=== PATIENT | female | born 1990 | race Caucasian/White ===

== ENCOUNTER → 2017-06-10 | Outpatient (CLI) | payer OTHER ==
[~2017-06-10] MED LIST: ACHD5005 PO; IBP600T1 PO; PREN-93 PO
--- NOTE | 2017-06-10 11:53 | Diagnostic Imaging Report ---
PROCEDURE: US OB SINGLE FETUS <14 WKS. TECHNIQUE: Multiple real-time grayscale images were obtained over the gravid uterus in various projections. INDICATION: Dating. FINDINGS: There is an intrauterine gestational sac containing a pole. The crown-rump length measurement is 13 mm consistent with 7 weeks 5 days gestation. heart rate was recorded at 170 beats per minute. No perigestational sac hemorrhage is identified. Adnexal evaluation demonstrates a corpus luteal cyst on the left approximately 17 mm in size. Right ovary was not visualized. There is no free fluid. IMPRESSION: Single live IUP 7 weeks 5 days gestational age. The estimated date of confinement sonographically is 01/22/2018. Dictated by: Dictated on workstation # [id number]
== END ==
LOC: RAD 09:51
PROVIDERS: ATTEND Family Medicine
DX: Z34.91 Encounter for supervision of normal pregnancy, unspecified, first trimester (principal); Z3A.01 Less than 8 weeks gestation of pregnancy
CPT/HCPCS: 76801

== ENCOUNTER → 2017-09-02 | Outpatient (CLI) | payer OTHER, MEDICAID ==
--- NOTE | 2017-09-02 13:26 | Diagnostic Imaging Report ---
INDICATION: , second trimester. TECHNIQUE: Multiple real-time grayscale images were obtained over the gravid uterus. COMPARISON: 06/10/2017. FINDINGS: The previous OB ultrasound exam of 06/10/2017 noted a single live intrauterine of approximately 7 weeks 5 days gestation +/-1 week. On this exam, the fetus is again identified. The fetus is cephalic in presentation. heart motion was noted and a rate of 163 BPM was recorded. There were no abnormalities identified. The growth parameters are fairly uniform and have progressed as expected since the prior exam. The placenta is posterior and low lying at approximately 1.7 cm from the cervical os. Amniotic fluid volume is within normal limits. Cervix was visualized and measures 6.1 cm in length (normal 3 cm or greater). Biometrical measurements are as follows: Biparietal 4.69 cm, age 20 weeks 2 days. Head circumference 17.72 cm, age 20 weeks 2 days. Abdominal circumference 15.03 cm, age 20 weeks 2 days. Femur length 3.75 cm, age 22 weeks 0 days. Sonographic estimate age: 20 weeks 5 days. Sonographic estimated date of delivery: 01-15-18. Estimated Weight: 388 gm (+/- 57 gm). LMP percentile: 97%. heart rate: 163 beats per minute. number: 1 of 1. IMPRESSION: 1. There is single live fetus at approximately 19 weeks 5 days gestation +/-1 week. The EDC remains January 22, 2018. 2. There were no abnormalities identified. 3. The growth parameters have progressed as expected since the prior exam. 4. The placenta is low lying but there is no previa. It may prove worthwhile to have a short-term (4-6 week) followup exam for further evaluation of the placenta. Dictated by: Dictated on workstation # [id number]
== END ==
LOC: RAD 09:08
PROVIDERS: ATTEND Family Medicine
DX: Z34.82 Encounter for supervision of other normal pregnancy, second trimester (principal); Z3A.19 19 weeks gestation of pregnancy
CPT/HCPCS: 76805

== ENCOUNTER → 2017-10-18 | Outpatient (CLI) | payer MEDICAID, OTHER ==
--- NOTE | 2017-10-18 14:50 | Diagnostic Imaging Report ---
INDICATION: survey. TECHNIQUE: Multiple real-time grayscale images were obtained over the gravid uterus. COMPARISON: 09/02/2017 FINDINGS: The previous OB ultrasound exam of 09/02/2017 noted a single live fetus approximately 19 weeks 5 days gestation + / - 1 week. On this study, the fetus is again identified. The fetus is cephalic in presentation. heart motion was noted and a rate of 153 bpm was recorded. There were no obvious abnormalities identified. The growth parameters have progressed as expected since the prior exam. The prior exam did note that the placenta was posterior and low-lying. On this exam, the placenta is no longer low-lying. The amniotic fluid volume is within normal limits. The cervix was identified and measures 5.1 cm in length. IMPRESSION: 1. There is a single live fetus approximately 26 weeks 2 days gestation + / - 1.5 weeks. EDC remains 01/22/2018. 2. No abnormalities identified. 3. The growth parameters have progressed as expected since the prior exam. 4. The placenta is posterior and no longer low-lying. Biometrical measurements are as follows: Biparietal 7.08 cm, age 28 weeks 4 days. Head circumference 25.37 cm, age 27 weeks 4 days. Abdominal circumference 23.44 cm, age 27 weeks 6 days. Femur length 4.97 cm, age 26 weeks 6 days. Sonographic estimate age: 27 weeks 5 days. Sonographic estimated date of delivery: 01/12/18. Estimated Weight: 1077 gm (+/- 157 gm). LMP percentile: 85%. heart rate: 153 beats per minute. number: 1 of 1. Dictated by: Dictated on workstation # [id number]
== END ==
LOC: RAD 11:34
PROVIDERS: ATTEND Plastic Surgery
DX: Z36.89 Encounter for other specified antenatal screening (principal); Z3A.26 26 weeks gestation of pregnancy
CPT/HCPCS: 76816

== ENCOUNTER 2017-12-04 15:20 | Outpatient (CLI) | payer MEDICAID ==
[~2017-12-04] VITALS: Ht 152.4 cm; Wt 78.0 kg
[2017-12-04 15:42] VITALS: BP 111/62
[2017-12-04 16:20] VITALS: BP 101/57
[2017-12-04 17:08] LABS: BASOPHILS % (AUTO) 0 % (0-10); EOSINOPHILS # (AUTO) 0.1 10^3/uL (0.0-0.3); EOSINOPHILS % (AUTO) 1 % (0-10); HEMATOCRIT 31 % (35-52); HEMOGLOBIN 10.1 G/DL (11.5-16.0); LYMPHOCYTES # (AUTO) 1.5 X 10^3 (1.0-4.0); LYMPHOCYTES % (AUTO) 19 % (12-44); MEAN CORPUSCULAR HEMOGLOBIN 27 PG (25-34); MEAN CORPUSCULAR HGB CONC 33 G/DL (32-36); MEAN CORPUSCULAR VOLUME 81 FL (80-99); MEAN PLATELET VOLUME 12.4 FL (7.4-10.4); MONOCYTES # (AUTO) 0.6 X 10^3 (0.0-1.0); MONOCYTES % (AUTO) 8 % (0-12); NEUTROPHILS # (AUTO) 5.6 X 10^3 (1.8-7.8); NEUTROPHILS % (AUTO) 72 % (42-75); PLATELET COUNT 179 10^3/uL (130-400); RED BLOOD COUNT 3.79 10^6/uL (4.35-5.85); RED CELL DISTRIBUTION WIDTH 14.7 % (10.0-14.5); WHITE BLOOD COUNT 7.8 10^3/uL (4.3-11.0)
[2017-12-04 17:27] LABS: ALANINE AMINOTRANSFERASE 15 U/L (0-55); ALKALINE PHOSPHATASE 155 U/L (40-136); BILIRUBIN,TOTAL 0.3 MG/DL (0.1-1.0); BUN/CREATININE RATIO 12; CALCIUM 8.5 MG/DL (8.5-10.1); CARBON DIOXIDE 18 MMOL/L (21-32); CHLORIDE 110 MMOL/L (98-107); CREATININE SERUM 0.58 MG/DL (0.60-1.30); GFR ESTIMATED > 60; GLUCOSE 87 MG/DL (70-105); POTASSIUM 3.8 MMOL/L (3.6-5.0); SODIUM 139 MMOL/L (135-145); TOTAL PROTEIN 5.7 GM/DL (6.4-8.2)
[2017-12-04] MEDS ORDERED: OMEP20CA12 PO (17:49)
[2017-12-04 18:05] VITALS: BP 101/57
--- NOTE | 2017-12-06 14:57 | Physician Query-Final Dx ---
CATHI DYKES 12/06/17 1457: Clinic Account Progress/Dx Physician Query: Please give diagnosis Please provide diagnosis and weeks of gestation. Date of Service Dec 04, 2017 at 15:20 SHRADDHA OQUENDO 12/28/17 0932: PAOLA CARRERO DO 12/28/17 0939: Clinic Account Progress/Dx DIAGNOSIS: Diagnosis 33 week GA RUQ abdominal pain - normal lab CATHI DYKES Dec 06, 2017 14:57 SHRADDHA OQUENDO Dec 28, 2017 09:32 PAOLA CARRERO DO Dec 28, 2017 09:39
== END 2017-12-04 18:05 | disposition home or self-care (01) ==
LOC: LDRP 15:20 → WSo 15:20
PROVIDERS: ATTEND Family Medicine
DX: R10.11 Right upper quadrant pain (principal); Z3A.33 33 weeks gestation of pregnancy
CPT/HCPCS: 36415; 80053; 85025; 99213

== ENCOUNTER 2018-01-09 18:32 | Outpatient (CLI) | payer MEDICAID ==
[~2018-01-09] VITALS: Ht 152.4 cm; Wt 81.2 kg
[2018-01-09] VITALS (8 sets, daily range): BP systolic 113–127; BP diastolic 63–73
[~2018-01-09 18:32] MED LIST changes: +OMEP20CA12 PO
[2018-01-09 19:48] LABS: BILIRUBIN,URINE NEGATIVE (NEGATIVE); CLARITY,URINE CLEAR; COLOR,URINE YELLOW; GLUCOSE, URINE (UA) NEGATIVE (NEGATIVE); KETONES,URINE NEGATIVE (NEGATIVE); LEUKOCYTE ESTERASE ,URINE 1+ (NEGATIVE); NITRITE,URINE NEGATIVE (NEGATIVE); PH,URINE 7 (5-9); PROTEIN,URINE NEGATIVE (NEGATIVE); UROBILINOGEN,URINE NORMAL (NORMAL)
[2018-01-09 19:58] LABS: BACTERIA,URINE NEGATIVE /HPF; WBC,URINE RARE /HPF
[2018-01-09] MEDS ORDERED: LACTATED RINGERS 1,000 ML IV ONE ×2 (20:12→20:15)
[2018-01-09] MEDS ORDERED: D5 LR IV SOLUTION 1,000 ML IV ONE (20:15)
[2018-01-09 20:50] LABS: BASOPHILS % (AUTO) 0 % (0-10); EOSINOPHILS # (AUTO) 0.1 10^3/uL (0.0-0.3); EOSINOPHILS % (AUTO) 1 % (0-10); HEMATOCRIT 32 % (35-52); HEMOGLOBIN 9.8 G/DL (11.5-16.0); LYMPHOCYTES # (AUTO) 1.6 X 10^3 (1.0-4.0); LYMPHOCYTES % (AUTO) 22 % (12-44); MEAN CORPUSCULAR HEMOGLOBIN 24 PG (25-34); MEAN CORPUSCULAR HGB CONC 31 G/DL (32-36); MEAN CORPUSCULAR VOLUME 77 FL (80-99); MONOCYTES # (AUTO) 0.5 X 10^3 (0.0-1.0); MONOCYTES % (AUTO) 7 % (0-12); NEUTROPHILS # (AUTO) 5.3 X 10^3 (1.8-7.8); NEUTROPHILS % (AUTO) 71 % (42-75); PLATELET COUNT 186 10^3/uL (130-400); RED BLOOD COUNT 4.09 10^6/uL (4.35-5.85); RED CELL DISTRIBUTION WIDTH 16.5 % (10.0-14.5); WHITE BLOOD COUNT 7.5 10^3/uL (4.3-11.0)
[2018-01-09 21:09] LABS: ALANINE AMINOTRANSFERASE 18 U/L (0-55); ALBUMIN 3.2 GM/DL (3.2-4.5); ALKALINE PHOSPHATASE 216 U/L (40-136); BILIRUBIN,TOTAL 0.4 MG/DL (0.1-1.0); BUN/CREATININE RATIO 13; CALCIUM 9.1 MG/DL (8.5-10.1); CARBON DIOXIDE 20 MMOL/L (21-32); CHLORIDE 106 MMOL/L (98-107); GFR ESTIMATED > 60; GLUCOSE 132 MG/DL (70-105); POTASSIUM 3.7 MMOL/L (3.6-5.0); SODIUM 136 MMOL/L (135-145); TOTAL PROTEIN 6.6 GM/DL (6.4-8.2)
== END 2018-01-09 22:53 | disposition home or self-care (01) ==
LOC: LDRP 18:32 → WSo 18:32
PROVIDERS: ATTEND Family Medicine
DX: Z03.71 Encounter for suspected problem with amniotic cavity and membrane ruled out (principal)
CPT/HCPCS: 36415; 80053; 81000; 85025; 96360; 96361; 99214

== ENCOUNTER 2018-01-16 05:43 | Inpatient (IN) | payer MEDICAID ==
[2018-01-16] VITALS (51 sets, daily range): BP systolic 98–139; BP diastolic 53–84
[~2018-01-16] VITALS: Ht 152.4 cm; Wt 82.1 kg
--- OUTSIDE RECORDS SUMMARY | 2018-01-16 05:48 | XMS REPORT ---
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 Name Role Phone IGNACIOMICHAELABRIL MARY Unavailable PROBLEMS Type Condition ICD9-CM Code OIN36-EL Code Onset Dates Condition Status SNOMED Code Problem Encounter for supervision of other normal , second trimester Z34.82 Active 49466916 Problem Obesity complicating , second trimester O99.212 Active 290706852118 Problem Radiation exposure affecting in second trimester O09.892 Active 519233475 Problem Encounter for supervision of other normal , third trimester Z34.83 Active 48062209 Problem Obesity complicating in third trimester O99.213 Active 626153307863 Problem Bilateral carpal tunnel syndrome G56.03 Active [id number] Problem Interstitial cystitis (chronic) with hematuria N30.11 Active 041055096 Problem Radiation exposure complicating in third trimester O09.893 Active 827768536 Problem Uterine size-date discrepancy in third trimester O26.843 Active 378821963 Problem Pain in left shoulder M25.512 Active 88371719 Problem Pain in right shoulder M25.511 Active 84834791 Problem Low lying placenta NOS or without hemorrhage, second trimester O44.42 Active 229163757 Problem Chronic GERD K21.9 Active 732409638 Problem PCOS (polycystic ovarian syndrome) E28.2 Active 67578438 Problem Other chronic pain G89.29 Active 06734968 Problem Family history of other congenital malformations, deformations and chromosomal abnormalities Z82.79 Active 001525173 Problem Obesity (BMI 30.0-34.9) E66.9 Active 859796253071256 Problem Cardiac murmur, unspecified R01.1 Active 41769766 ALLERGIES No Known Allergies ENCOUNTERS Encounter Location Date Diagnosis [address] [id number] [id number] Dec[facility] [employer] [facility] [address] [id number] [place] [id number] Dec, Encounter for supervision of other normal , third trimester Z34.83 ; Obesity complicating in third trimester O99.213 ; Uterine size-date discrepancy in third trimester O26.843 ; Radiation exposure complicating in third trimester O09.893 ; Bilateral carpal tunnel syndrome G56.03 and Encounter for screening for Streptococcus B Z36.85 [facility] [employer] [facility] [address] [id number][place] [id number] Dec, Encounter for supervision of other normal , third trimester Z34.83 ; Obesity complicating in third trimester O99.213 ; Radiation exposure complicating in third trimester O09.893 and Uterine size-date discrepancy in third trimester O26.[address] [id number] [place] [address] Nov, Encounter for supervision of other normal , third trimester Z34.83 ; Obesity complicating in third trimester O99.213 ; Radiation exposure complicating in third trimester O09.893 ; Uterine size-date discrepancy in third trimester O26.843 and Bilateral carpal tunnel syndrome G56.[address] [id number] [place] [address] Nov, Encounter for supervision of other normal , third trimester Z34.83 ; Obesity complicating in third trimester O99.213 ; Radiation exposure complicating in third trimester O09.893 ; Uterine size-date discrepancy in third trimester O26.843 ; Other chronic pain G89.29 and Bilateral carpal tunnel syndrome G56.03 [facility] [employer] [facility] [address] [id number][place] [id number] Nov, Encounter for supervision of other normal , third trimester Z34.83 ; Obesity complicating in third trimester O99.213 ; Bilateral carpal tunnel syndrome G56.03 ; Uterine size-date discrepancy in third trimester O26.843 ; Radiation exposure complicating in third trimester O09.893 ; Encounter for immunization Z23 and Other chronic pain G89.29 [facility] [address] [facility] [id number] [place] [id number] Oct, Encounter for supervision of other normal , second trimester Z34.82 ; Radiation exposure affecting in second trimester O09.892 ; Obesity complicating , second trimester O99.212 ; Cardiac murmur, unspecified R01.1 ; Interstitial cystitis (chronic) with hematuria N30.11 ; Chronic GERD K21.9 ; Bilateral carpal tunnel syndrome G56.03 and Uterine size- date discrepancy in third trimester O26.843 [facility] [address] [facility] [id number] [place] [id number] Oct, Chronic GERD K21.9 [facility] [address] [id number][place] [id number] Oct, Encounter for supervision of other normal , second trimester Z34.82 [facility] [address] [facility] [id number] [place] [address] Oct, Low lying placenta NOS or without hemorrhage, second trimester O44.42 [facility] [address] [id number], [place] [id number] Sep, Encounter for supervision of other normal , second trimester Z34.82 ; Radiation exposure affecting in second trimester O09.892 ; Low lying placenta NOS or without hemorrhage, second trimester O44.42 ; Cellulitis of left upper extremity L03.114 and Cellulitis of left finger L03.012 [facility] [address] [id number][place] [address] Sep, Encounter for supervision of other normal , second trimester Z34.82 ; Interstitial cystitis (chronic) with hematuria N30.11 ; Obesity complicating , second trimester O99.212 ; Radiation exposure affecting in second trimester O09.892 and Low lying placenta NOS or without hemorrhage, second trimester O44.42 [facility] [address] [id number] [place] [address] Sep, Dysuria R30.0 [facility] [address] [id number], [place] [id number] Sep, Dysuria R30.0 and Other specified related conditions, second trimester O26.892 [facility] [address] [id number], [place] [id number] August, [facility] [employer] [facility] [address] [id number][place] [id number] August, Encounter for supervision of other normal , second trimester Z34.82 ; Obesity complicating , second trimester O99.212 ; Radiation exposure affecting in second trimester O09.892 ; Chronic GERD K21.9 ; Family history of other congenital malformations, deformations and chromosomal abnormalities Z82.79 and Cardiac murmur, unspecified R01.1 [facility] [employer] [place] [address] [id number], [place] [address] Jul, Encounter for supervision of other normal , first trimester Z34.81 ; Obesity complicating , first trimester O99.211 and Radiation exposure affecting in first trimester O09.891 [facility] [employer] [place] [address] [id number], [place] [id number] Jul, Urinary tract infection N39.0 and UTI (urinary tract infection) in in first trimester O23.41 [facility] [employer] [place] [address] [id number], [place] [id number] Jun, Encounter for supervision of other normal , first trimester Z34.81 [facility] [employer] [place] [address] [id number], [place] [address] Jun, Encounter for supervision of other normal , first trimester Z34.81 ; Radiation exposure affecting in first trimester O09.891 ; Family history of other congenital malformations, deformations and chromosomal abnormalities Z82.79 ; Cardiac murmur, unspecified R01.1 and Obesity complicating in first trimester O99.211 [facility] [employer] [id number], [place] [id number] May, Positive test Z32.01 [facility] [employer] Card [id number], [place] [id number] May, Less than 8 weeks gestation of Z3A.01 [facility] [address] [place] [address] AVE [id number], [place] [id number] May, [facility] [address] [id number], [place] [id number] May, PCOS (polycystic ovarian syndrome) E28.2 [facility] [address]ERNST[address] [id number], [place] [id number] May, PCOS (polycystic ovarian syndrome) E28.2 [facility] [address] [id number], [place] [address] May, PCOS (polycystic ovarian syndrome) E28.2 [facility] [address] [id number], [place] [id number] Apr, [facility] [address] [place] [address] AV [id number], [place] [id number] Apr, [facility] [address] [place] [address] AV [id number], [place] [id number] Apr, Obesity (BMI 30.0-34.9) E66.9 ; Cardiac murmur, previously undiagnosed R01.1 ; Chronic GERD K21.9 ; Other chronic pain G89.29 ; Pain in left shoulder M25.512 ; Pain in right shoulder M25.511 ; History of abnormal cervical Pap smear Z87.898 and Encounter to establish care Z76.89 [facility] [address] [id number], [place] [id number] Apr, Encounter for Nexplanon removal Z30.[address] [id number], [place] [address] Feb, Visit for TB skin test Z11.1 and Encounter for immunization Z23 [facility] [address] [id number] [address] Oct, Nexplanon insertion V25.5 [facility] [address] [place] [address] Oct, General counseling and advice for contraceptive management V25.09 [facility] [address] [facility] [id number], [place] [address] 16 Sep, 2014 Routine follow-up V24.2 [facility] [address] [facility] [id number], [place] [address] 28 Jul, 2014 Supervision of other normal V22.1 [facility] [address] [facility] [id number], [place] [address] 14 Jul, 2014 [facility] [address] [facility] [id number], [place] [address] 13 Jul, 2014 [facility] [address] [facility] [id number], [place] [address] 23 Jun, 2014 [facility] [address] [id number], [place] [address] Jun, [facility] [address] [facility] [id number], [place] [address] Jun, [facility] [address] [facility] [id number], [place] [address] Jun, [facility] [address] [id number], [place] [address] 18 May, 2014 [facility] [address]00565100[place], [place] [address] 18 May, 2014 [facility] [address] [id number], [place] [address] May, [facility] [address] [facility] [id number], [place] [address]37[address] May, [facility] [address] [facility] [id number], [place] [address]783[address] May, [facility] [address] [id number], [place] [address] May, [facility] [address] [place] [address] Apr, [facility] [place] [facility] [address] [id number] [place] [address] Apr, [facility] [place] [facility] [address] [id number] [place] [address] Apr, [facility] [place] [facility] [address] [id number] [place] [address] Apr, [facility] [place] [facility] [address] [id number] [place] [address] Mar, [facility] [place] [facility] [address] [id number] [place] [address] Mar, [facility] [place] [facility] [address] [id number] [place] [address] Mar, [facility] [place] [facility] [address] [id number] [place] [address] Mar, [facility] [place] [facility] [address] [id number] [place] [address] Mar, [facility] [place] [facility] [address] [id number] [place] [address] Mar, [facility] [place] [facility] [address] [facility] [id number] [place] [address] Mar, [facility] [place] [facility] [address] [id number] [place] [address] Mar, [facility] [place] [facility] [address] [id number] [place] [address] Mar, [facility] [place] [facility] [address] [id number] [place] [address] Mar, [facility] [place] [facility] [address] [id number] [place] [address] Jan, [facility] [place] [facility] [address] [id number] [place] [address] Jan, [facility] [place] [facility] [address] [id number] [place] [address] 07 Jan, 2013 [facility] [place] [facility] [address] [id number] [place] [address] Jan, 2013 [facility] [place] [facility] [address] [id number] [place] [address]- [address] Jan, 2013 [facility] [place] [facility] [address] [id number] [place] [address] Jan, 2013 [facility] [place] [facility] [address] [id number] [place] [address] 05 Jan, 2014 [facility] [place] [facility] [address] [id number] [place] [address] Jan, [facility] [place] [facility] [address] [id number] [place] [address] Jan, [facility] [place] [facility] [address] [id number] [place] [address]- [address] Jan, [facility] [place] [facility] [address] [id number] [place] [address]- [address] 23 Dec, 2013 [facility] [place] [facility] [address] [id number] [place] [address]- [address] 23 Dec, 2013 [facility] [place] [facility] [address] [id number] [place] [address]- [address] 16 Dec, 2013 [facility] [place] [facility] [address] [id number] [place] [address]- [address]233 16 Sep, 2013 [facility] [place] [facility] [address] [id number] [place] [address]- [address] 12 Dec, 2013 [facility] [place] [facility] [address] [id number] [place] [address]- [address] 12 Dec, 2013 [facility] [place] [facility] [address] [id number] [place] [address] 10 Dec, 2013 [facility] [place] [facility] [address] [id number], [place] [address] Dec, [facility] [address] [facility] [id number], [place] [address] Dec, 2013 [facility] [address] [facility] [id number], [place] [address] Dec, [facility] [address] [facility] [id number], [place] [address] Dec, 2013 [facility] [address] [facility] [id number], [place] [address] Dec, 2013 [facility] [address] [facility] [id number], [place] [address] Dec, [facility] [address] [facility] [id number], [place] [address] Dec, [facility] [address]65100[place], [place] [address] Dec, [facility] [address]00565100[place], [place] [address] Nov, [facility] [address] [id number], [place] [address] Nov, IMMUNIZATIONS No Known Immunizations SOCIAL HISTORY Never Assessed REASON FOR VISIT OB f/u w [facility] PLAN OF CARE Activity Details Follow Up 2 Weeks Reason: Pending Test CULTURE, URINE VITAL SIGNS Height 60 in 2017-11-24 Weight 171.2 lbs 2017-11-24 Heart Rate 84 bpm 2017-11-24 Respiratory Rate 18 2017-11-24 BMI 33.435 kg/m2 2017-11-24 Blood pressure systolic 110 mmHg 2017-11-24 Blood pressure diastolic 70 mmHg 2017-11-24 MEDICATIONS Medication Instructions Dosage Frequency Start Date End Date Duration Status Wrist Splint/Cock-Up/Right Sm - as directed Oct, 90 days Active Wrist Splint/Cock-Up/Left Sm - as directed Oct, 90 days Active Vitamin 27-0.8 MG Orally Once a day 1 tablet 24h May, 90 days Active Omeprazole 20 mg Orally Once a day 1 capsule 24h Apr, 30 day(s ) Active RESULTS Name Result Date Reference Range UA LONG DIP (IN HOUSE) 2017-11-24 Lot # [id number] Exp date 03/2018 Clarity clear Color yellow Odor none GLU neg KULWANT neg KET neg SG 1.020 BLO neg pH 7.0 Protein 1+ URO 1.0 NIT neg TIMBO 3+ Lot # Exp date PROCEDURES Procedure Date Ordered Result Body Site URINALYSIS, AUTO, W/O SCOPE Nov 24, 2017 URINE CULTURE/COLONY COUNT Nov 24, 2017 OB US, LIMITED, FETUS(S) Nov 24, 2017 INSTRUCTIONS MEDICATIONS ADMINISTERED No Known Medications MEDICAL (GENERAL) HISTORY Type Description Date Medical History 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 Treated and Released 2017
--- OUTSIDE RECORDS SUMMARY | 2018-01-16 05:48 | XMS REPORT ---
Author Author MARY CHAVEZ Organization [facility] Address [address] [place] [address] Care Team Providers Care Fisher Eel Name Role Phone MARY CHAVEZ Unavailable PROBLEMS Type Condition ICD9-CM Code GYD15-XV Code Onset Dates Condition Status SNOMED Code Problem Encounter for supervision of other normal , second trimester Z34.82 Active 68223555 Problem Obesity complicating , second trimester O99.212 Active 107253988456 Problem Radiation exposure affecting in second trimester O09.892 Active 712313415 Problem Encounter for supervision of other normal , third trimester Z34.83 Active 94603003 Problem Obesity complicating in third trimester O99.213 Active 531452709325 Problem Bilateral carpal tunnel syndrome G56.03 Active [id number] Problem Interstitial cystitis (chronic) with hematuria N30.11 Active 293752377 Problem Radiation exposure complicating in third trimester O09.893 Active 191698308 Problem Uterine size-date discrepancy in third trimester O26.843 Active 665699949 Problem Pain in left shoulder M25.512 Active 26482032 Problem Pain in right shoulder M25.511 Active 72156050 Problem Low lying placenta NOS or without hemorrhage, second trimester O44.42 Active 788495100 Problem Chronic GERD K21.9 Active 406396564 Problem PCOS (polycystic ovarian syndrome) E28.2 Active 32718335 Problem Other chronic pain G89.29 Active 16948843 Problem Family history of other congenital malformations, deformations and chromosomal abnormalities Z82.79 Active 122901500 Problem Obesity (BMI 30.0-34.9) E66.9 Active 891005866387662 Problem Cardiac murmur, unspecified R01.1 Active 90805481 ALLERGIES No Information ENCOUNTERS Encounter Location Date Diagnosis [facility] [address] [facility] [id number] [address] Jan, Third trimester Z34.93 ; 38 weeks gestation of Z3A.38 and tachycardia before the onset of labor P03.810 [facility] [address] [facility] [id number] [place] [address] Dec, Encounter for immunization Z23 [facility] [address] [id number] [place] [id number] Dec, Encounter for supervision of other normal , third trimester Z34.83 ; Obesity complicating in third trimester O99.213 ; Radiation exposure complicating in third trimester O09.893 and Uterine size-date discrepancy in third trimester O26.843 [facility] [address] [id number] [place] [address] Dec, Encounter for supervision of other normal , third trimester Z34.83 ; Obesity complicating in third trimester O99.213 ; Uterine size-date discrepancy in third trimester O26.843 ; Radiation exposure complicating in third trimester O09.893 ; Bilateral carpal tunnel syndrome G56.03 and Encounter for screening for Streptococcus B Z36.85 [facility] [address] [id number] [place] [address] Dec, Encounter for supervision of other normal , third trimester Z34.83 ; Obesity complicating in third trimester O99.213 ; Radiation exposure complicating in third trimester O09.893 and Uterine size-date discrepancy in third trimester O26.843 [facility] [address] [facility] [id number][place] [id number] Nov, Encounter for supervision of other normal , third trimester Z34.83 ; Obesity complicating in third trimester O99.213 ; Radiation exposure complicating in third trimester O09.893 ; Uterine size-date discrepancy in third trimester O26.843 and Bilateral carpal tunnel syndrome G56.03 [facility] [address] [facility] [id number] [place] [id number] Nov, Encounter for supervision of other normal , third trimester Z34.83 ; Obesity complicating in third trimester O99.213 ; Radiation exposure complicating in third trimester O09.893 ; Uterine size-date discrepancy in third trimester O26.843 ; Other chronic pain G89.29 and Bilateral carpal tunnel syndrome G56.[address] [id number] [place] [id number] Nov, Encounter for supervision of other normal , third trimester Z34.83 ; Obesity complicating in third trimester O99.213 ; Bilateral carpal tunnel syndrome G56.03 ; Uterine size-date discrepancy in third trimester O26.843 ; Radiation exposure complicating in third trimester O09.893 ; Encounter for immunization Z23 and Other chronic pain G89.[address] [id number][place] [id number] Oct, Encounter for supervision of other normal , second trimester Z34.82 ; Radiation exposure affecting in second trimester O09.892 ; Obesity complicating , second trimester O99.212 ; Cardiac murmur, unspecified R01.1 ; Interstitial cystitis (chronic) with hematuria N30.11 ; Chronic GERD K21.9 ; Bilateral carpal tunnel syndrome G56.03 and Uterine size- date discrepancy in third trimester O26.[address] [id number][place] [id number] Oct, Chronic GERD K21.9 [facility] [address] [id number] [place] [address] Oct, Encounter for supervision of other normal , second trimester Z34.[address] [id number], [place] [id number] Oct, Low lying placenta NOS or without hemorrhage, second trimester O44.[address] [id number] [place] [address] Sep, Encounter for supervision of other normal , second trimester Z34.82 ; Radiation exposure affecting in second trimester O09.892 ; Low lying placenta NOS or without hemorrhage, second trimester O44.42 ; Cellulitis of left upper extremity L03.114 and Cellulitis of left finger L03.[address] [id number] [place] [address] Sep, Encounter for supervision of other normal , second trimester Z34.82 ; Interstitial cystitis (chronic) with hematuria N30.11 ; Obesity complicating , second trimester O99.212 ; Radiation exposure affecting in second trimester O09.892 and Low lying placenta NOS or without hemorrhage, second trimester O44.42 [facility] [address] [id number] [place] [address] Sep, Dysuria R30.0 [facility] [address] [id number] [place] [address] Sep, Dysuria R30.0 and Other specified related conditions, second trimester O26.892 [facility] [address] [id number] CITY[place] [address] August, [facility] [address] [id number] [place] [address] August, Encounter for supervision of other normal , second trimester Z34.82 ; Obesity complicating , second trimester O99.212 ; Radiation exposure affecting in second trimester O09.892 ; Chronic GERD K21.9 ; Family history of other congenital malformations, deformations and chromosomal abnormalities Z82.79 and Cardiac murmur, unspecified R01.1 [facility] [address] [id number] [place] [address] Jul, Encounter for supervision of other normal , first trimester Z34.81 ; Obesity complicating , first trimester O99.211 and Radiation exposure affecting in first trimester O09.891 [facility] [address] [id number] [place] [address] Jul, Urinary tract infection N39.0 and UTI (urinary tract infection) in in first trimester O23.41 [facility] [address] [id number] [place] [address] Jun, Encounter for supervision of other normal , first trimester Z34.81 [facility] [address] [id number] [place] [id number] 12 Jun, 2017 Encounter for supervision of other normal , first trimester Z34.81 ; Radiation exposure affecting in first trimester O09.891 ; Family history of other congenital malformations, deformations and chromosomal abnormalities Z82.79 ; Cardiac murmur, unspecified R01.1 and Obesity complicating in first trimester O99.211 [facility] [place] [address] [place] [id number] [place] [id number] 12 May, 2017 Positive test Z32.01 [facility] [place] [address] [place] [id number] [place] [id number] 12 May, 2017 Less than 8 weeks gestation of Z3A.01 [facility] [address] [place] [address] [place] [id number] [place], [place] [id number] 12 May, 2017 [facility] [address] [place] [id number] [id number] May, PCOS (polycystic ovarian syndrome) E28.2 [facility] [address] [place] [address] [id number] [place], [place] [id number] May, PCOS (polycystic ovarian syndrome) E28.2 [facility] [address] [place] [address] [id number] CITY, [place] [id number] May, PCOS (polycystic ovarian syndrome) E28.2 [facility] [address] [place] [address] [id number] [place], [place] [address] Apr, [facility] [address] [place] [address] AV [id number] [place] [id number] Apr, [facility] [address] [place] [address] [place] [id number] [place], [place] [id number] Apr, Obesity (BMI 30.0-34.9) E66.9 ; Cardiac murmur, previously undiagnosed R01.1 ; Chronic GERD K21.9 ; Other chronic pain G89.29 ; Pain in left shoulder M25.512 ; Pain in right shoulder M25.511 ; History of abnormal cervical Pap smear Z87.898 and Encounter to establish care Z76.89 [facility] [address] [id number] CITY[place] [id number] Apr, Encounter for Nexplanon removal Z30.46 [facility] [address] [id number] [place] [address] Feb, Visit for TB skin test Z11.1 and Encounter for immunization Z23 [facility] [id number] [place] [address] 30 Oct, 2014 Nexplanon insertion V25.5 [facility] [address] [place] [address] Oct, General counseling and advice for contraceptive management V25.09 [facility] [id number] [place] [address] Sep, Routine follow-up V24.2 [facility] [id number] [place] [address] Jul, Supervision of other normal V22.1 [facility] [address] [place] [address] Jul, [facility] [id number] [place] [address] Jul, [facility] [address] [place] [address] Jun, [facility] [id number] [place] [address] Jun, [facility] [address] [place] [address]- [address] Jun, [facility] [id number] [place] [address] Jun, [facility] [address] [place] [address]- [address] 18 May, 2014 [facility] [id number] [place] [address] May, 2014 [facility] [place] [facility] [address] [id number] [place] [address] May, [facility] [place] [facility] [address] [id number] [place] [address] May, [facility] [place] [facility] [address] [id number] [place] [address] May, [facility] [place] [facility] [address] [id number] [place] [address] May, [facility] [place] [facility] [address] [id number] [place] [address] Apr, [facility] [place] [facility] [address] [id number] [place] [address] Apr, [facility] [place] [facility] [address] [facility] [id number] [place] [address] Apr, [facility] [place] [facility] [address] [id number] [place] [address] Apr, [facility] [place] [facility] [address] [id number] [place] [address] Mar, [facility] [place] [facility] [address] [facility] [id number] [place] [address] 30 Mar, 2014 [facility] [place] [facility] [address] [id number] [place] [address] Mar, [facility] [place] [facility] [address] [id number] [place] [address] Mar, [facility] [place] [facility] [address] [id number] [place] [address] Mar, [facility] [place] [facility] [address] [facility] [id number] [place] [address] Mar, [facility] [place] [facility] [address] [facility] [id number] [place] [address] Mar, [facility] [place] [facility] [address] [id number] [place] [address]47 05 Mar, 2013 [facility] [place] [facility] [address] [id number] [place] [address] Mar, [facility] [place] [facility] [address] [id number] [place] [address] Mar, [facility] [place] [facility] [address] [id number] [place] [address] Jan, [facility] [place] [facility] [address] [id number] [place] [address] Jan, [facility] [place] [facility] [address] [id number] [place] [address] Jan, [facility] [place] [facility] [address] [id number] [place] [address] Jan, 2013 [facility] [place] [facility] [address] [id number] [place] [address] Jan, [facility] [place] [facility] [address] [id number] [place] [address] Jan, [facility] [place] [facility] [address] [id number] [place] [address] 138[address] Jan, [facility] [place] [facility] [address] [id number] [place] [address]- 5258 Jan, [facility] [place] [facility] [address] [id number] [place] [address]- 77[address] Jan, [facility] [place] [facility] [address] [id number] [place] [address]- [address] Jan, [facility] [place] [facility] [address] [id number] [place] [address]- [address] 23 Dec, 2013 [facility] [place] [facility] [address] [id number] [place] [address]- [address] 23 Dec, 2013 [facility] [place] [facility] [address] [id number] [place] [id number] [address] 16 Dec, 2013 [facility] [address] [facility] [id number], [place] [address] 16 Dec, 2013 [facility] [address] [facility] [id number], [place] [address] Dec, 2013 [facility] [address] [facility] [id number], [place] [address] 12 Dec, 2013 [facility] [address] [facility] [id number], [place] [address] Dec, 2013 [facility] [address] [facility] [id number], [place] [address] 10 Dec, 2013 [facility] [address] [facility] [id number], [place] [address] Dec, 2013 [facility] [address]005[place], [place] [address] Dec, 2013 [facility] [address]00565100[place], [place] [address] 08 Dec, 2013 [facility] [address] [facility] [id number], [place] [address] Dec, 2013 [facility] [address]00565100[place], [place] [address] Dec, 2013 [facility] [address]00565100[place], [place] [address] Dec, [facility] [address] [id number], [place] [address] Dec, [facility] [address] [id number], [place] [address] Nov, [facility] [address]00565100[place], [place] [address] Nov, IMMUNIZATIONS No Known Immunizations SOCIAL HISTORY Never Assessed REASON FOR VISIT ob visit PLAN OF CARE Activity Details Follow Up 1 Week Reason: Pending Test UA OB DIP (IN HOUSE) VITAL SIGNS Height 60 in 2018-01-02 Weight 177.4 lbs 2018-01-02 Temperature 97.9 degrees Fahrenheit 2018-01-02 Heart Rate 112 bpm 2018-01-02 Respiratory Rate 18 2018-01-02 Oximetry 98 % 2018-01-02 BMI 34.646 kg/m2 2018-01-02 Blood pressure systolic 112 mmHg 2018-01-02 Blood pressure diastolic 70 mmHg 2018-01-02 MEDICATIONS Unknown Medications RESULTS No Results PROCEDURES Procedure Date Ordered Result Body Site URINE-NO MICRO Jan 02, 2018 INSTRUCTIONS MEDICATIONS ADMINISTERED No Known Medications MEDICAL [...]
--- OUTSIDE RECORDS SUMMARY | 2018-01-16 05:48 | XMS REPORT ---
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 Name Role Phone IGNACIOMICHAELABRIL MARY Unavailable PROBLEMS Type Condition ICD9-CM Code ASX66-QL Code Onset Dates Condition Status SNOMED Code Problem Encounter for supervision of other normal , second trimester Z34.82 Active 16949727 Problem Obesity complicating , second trimester O99.212 Active 561425551700 Problem Radiation exposure affecting in second trimester O09.892 Active 801764508 Problem Encounter for supervision of other normal , third trimester Z34.83 Active 92072185 Problem Obesity complicating in third trimester O99.213 Active 879793777252 Problem Bilateral carpal tunnel syndrome G56.03 Active [id number] Problem Interstitial cystitis (chronic) with hematuria N30.11 Active 323602052 Problem Radiation exposure complicating in third trimester O09.893 Active 441050810 Problem Uterine size-date discrepancy in third trimester O26.843 Active 132176133 Problem Pain in left shoulder M25.512 Active 59525660 Problem Pain in right shoulder M25.511 Active 61720692 Problem Low lying placenta NOS or without hemorrhage, second trimester O44.42 Active 454586608 Problem Chronic GERD K21.9 Active 384155800 Problem PCOS (polycystic ovarian syndrome) E28.2 Active 75086502 Problem Other chronic pain G89.29 Active 53576080 Problem Family history of other congenital malformations, deformations and chromosomal abnormalities Z82.79 Active 783208430 Problem Obesity (BMI 30.0-34.9) E66.9 Active 626625556797622 Problem Cardiac murmur, unspecified R01.1 Active 50940956 ALLERGIES No Known Allergies ENCOUNTERS Encounter Location Date Diagnosis [address] [id number][place] [id number] Jan, [facility] [address] [facility] [id number] [place] [address] Dec, [address] [id number], [place] [address] Dec, Encounter for supervision of other normal , third trimester Z34.83 ; Obesity complicating in third trimester O99.213 ; Radiation exposure complicating in third trimester O09.893 and Uterine size-date discrepancy in third trimester O26.[address] [id number][place] [id number] Dec, Encounter for supervision of other normal , third trimester Z34.83 ; Obesity complicating in third trimester O99.213 ; Uterine size-date discrepancy in third trimester O26.843 ; Radiation exposure complicating in third trimester O09.893 ; Bilateral carpal tunnel syndrome G56.03 and Encounter for screening for Streptococcus B Z36.[address] [id number][place] [address] Dec, Encounter for supervision of other normal , third trimester Z34.83 ; Obesity complicating in third trimester O99.213 ; Radiation exposure complicating in third trimester O09.893 and Uterine size-date discrepancy in third trimester O26.[address] [id number][place] [id number] Nov, Encounter for supervision of other normal , third trimester Z34.83 ; Obesity complicating in third trimester O99.213 ; Radiation exposure complicating in third trimester O09.893 ; Uterine size-date discrepancy in third trimester O26.843 and Bilateral carpal tunnel syndrome G56.[address] [id number][place] [id number] Nov, Encounter for supervision of other normal , third trimester Z34.83 ; Obesity complicating in third trimester O99.213 ; Radiation exposure complicating in third trimester O09.893 ; Uterine size-date discrepancy in third trimester O26.843 ; Other chronic pain G89.29 and Bilateral carpal tunnel syndrome G56.03 [facility] [employer] [facility] [address] [id number], [place] [address] Nov, Encounter for supervision of other normal , third trimester Z34.83 ; Obesity complicating in third trimester O99.213 ; Bilateral carpal tunnel syndrome G56.03 ; Uterine size-date discrepancy in third trimester O26.843 ; Radiation exposure complicating in third trimester O09.893 ; Encounter for immunization Z23 and Other chronic pain G89.[address] [id number][place] [id number] Oct, Encounter for supervision of other normal , second trimester Z34.82 ; Radiation exposure affecting in second trimester O09.892 ; Obesity complicating , second trimester O99.212 ; Cardiac murmur, unspecified R01.1 ; Interstitial cystitis (chronic) with hematuria N30.11 ; Chronic GERD K21.9 ; Bilateral carpal tunnel syndrome G56.03 and Uterine size- date discrepancy in third trimester O26.[address] [id number], [place] [id number] Oct, Chronic GERD K21.9 [facility] [email or web address] [facility] [address] [id number], [place] [id number] Oct, Encounter for supervision of other normal , second trimester Z34.[address] [id number], [place] [address] Oct, Low lying placenta NOS or without hemorrhage, second trimester O44.42 [facility] [address] [id number], [place] [address] Sep, Encounter for supervision of other normal , second trimester Z34.82 ; Radiation exposure affecting in second trimester O09.892 ; Low lying placenta NOS or without hemorrhage, second trimester O44.42 ; Cellulitis of left upper extremity L03.114 and Cellulitis of left finger L03.012 [facility] [address] [id number], [place] [address] Sep, Encounter for supervision of other normal , second trimester Z34.82 ; Interstitial cystitis (chronic) with hematuria N30.11 ; Obesity complicating , second trimester O99.212 ; Radiation exposure affecting in second trimester O09.892 and Low lying placenta NOS or without hemorrhage, second trimester O44.42 [facility] [address] [id number] [place] [address] Sep, Dysuria R30.0 [facility] [employer] [id number], [place] [id number] Sep, Dysuria R30.0 and Other specified related conditions, second trimester O26.892 [facility] [employer] [id number], [place] [id number] August, [facility] [employer] [address] [id number], [place] [address] August, Encounter for supervision of other normal , second trimester Z34.82 ; Obesity complicating , second trimester O99.212 ; Radiation exposure affecting in second trimester O09.892 ; Chronic GERD K21.9 ; Family history of other congenital malformations, deformations and chromosomal abnormalities Z82.79 and Cardiac murmur, unspecified R01.1 [facility] [employer] [address] [id number], [place] [id number] Jul, Encounter for supervision of other normal , first trimester Z34.81 ; Obesity complicating , first trimester O99.211 and Radiation exposure affecting in first trimester O09.891 [facility] [employer] [address] [id number], [place] [id number] Jul, Urinary tract infection N39.0 and UTI (urinary tract infection) in in first trimester O23.41 [facility] [address] [id number], [place] [id number] Jun, Encounter for supervision of other normal , first trimester Z34.81 [facility] [id number], [place] [address] Jun, Encounter for supervision of other normal , first trimester Z34.81 ; Radiation exposure affecting in first trimester O09.891 ; Family history of other congenital malformations, deformations and chromosomal abnormalities Z82.79 ; Cardiac murmur, unspecified R01.1 and Obesity complicating in first trimester O99.211 [facility] [address] [id number], [place] [id number] 12 May, 2017 Positive test Z32.01 [facility]ITALP[facility]3DPhoe[facility] ERNST [employer] [place] [address] AVE [id number], [place] [id number] 12 May, 2017 Less than 8 weeks gestation of Z3A.01 [facility] [employer] [place] [address] AV [id number], [place] [id number] 12 May, 2017 [facility] [employer] [place] [address] [id number] [place] [id number] 08 May, 2017 PCOS (polycystic ovarian syndrome) E28.2 [facility] AVAshe [facility] [id number], [place] [id number] May, PCOS (polycystic ovarian syndrome) E28.2 [facility] [employer] [place] [address] AV [id number], [place] [id number] May, PCOS (polycystic ovarian syndrome) E28.2 [facility] [employer] [place] [address] AV [id number], [place] [id number] Apr, [facility]ITALP[facility]DPhoe[facility] ERNST [address] [place] [address] AV [id number], [place] [id number] Apr, [facility]inSilicaERNST [employer] [place] [address] AV [id number], [place] [id number] Apr, Obesity (BMI 30.0-34.9) E66.9 ; Cardiac murmur, previously undiagnosed R01.1 ; Chronic GERD K21.9 ; Other chronic pain G89.29 ; Pain in left shoulder M25.512 ; Pain in right shoulder M25.511 ; History of abnormal cervical Pap smear Z87.898 and Encounter to establish care Z76.89 [facility]inSilicaERNST [employer] [id number], [place] [id number] 08 Apr, 2017 Encounter for Nexplanon removal Z30.46 [facility] ERNST[address] [id number], [place] [id number] 03 Feb, 2017 Visit for TB skin test Z11.1 and Encounter for immunization Z23 [facility] [address], [place] [address] 30 Oct, 2014 Nexplanon insertion V25.5 [facility] [id number] [place] [address] 14 Oct, 2014 General counseling and advice for contraceptive management V25.09 [facility] [address] [place] [address] 16 Sep, 2014 Routine follow-up V24.2 [facility] [id number] [place] [address] 28 Jul, 2014 Supervision of other normal V22.1 [facility] [id number] [place] [address] 14 Jul, 2014 [facility] [address] [place] [address] Jul, [facility] [id number] [place] [address] Jun, [facility] [address] [place] [address] Jun, [facility] [address] [place] [address] Jun, [facility] [address]65100[place], [place] [address] Jun, [facility] [id number] [place] [address] May, [facility] [address]65100[place], [place] [address] May, [facility] [id number] [place] [address] May, 2014 [facility] [place] [facility] [address] [id number] [place] [address] May, [facility] [place] [facility] [address] [id number] [place] [address] May, [facility] [place] [facility] [address] [facility] [id number] [place] [address] May, [facility] [place] [facility] [address] [id number] [place] [address] Apr, [facility] [place] [facility] [address] [id number] [place] [address] Apr, [facility] [place] [facility] [address] [id number] [place] [address] Apr, [facility] [place] [facility] [address] [facility] [id number] [place] [address] Apr, [facility] [place] [facility] [address] [id number] [place] [address] Mar, [facility] [place] [facility] [address] [id number] [place] [address] Mar, [facility] [place] [facility] [address] [id number] [place] [address] Mar, [facility] [place] [facility] [address] [id number] [place] [address] Mar, [facility] [place] [facility] [address] [id number] [place] [address] Mar, [facility] [place] [facility] [address] [id number] [place] [address] Mar, [facility] [place] [facility] [address] [facility] [id number] [place] Mar, [facility] [place] [facility] [address] [facility] [id number] [place] Mar, [facility] [place] [facility] [address] [id number] [place] [address] 02 Mar, 2013 [facility] [place] [facility] [address] [id number] [place] [address] Mar, [facility] [place] [facility] [address] [id number] [place] [address] Jan, [facility] [place] [facility] [address] [id number] [place] Jan, [facility] [place] [facility] [address] [id number] [place] [address] Jan, [facility] [place] [facility] [address] [id number] [place] [address] Jan, [facility] [place] [facility] [address] [id number] [place] [address] Jan, [facility] [place] [facility] [address] [id number] [place] [address] Jan, [facility] [place] [facility] [address] [id number] [place] [address] 05 Jan, 2014 [facility] [place] [facility] [address] [id number] [place] [address] 269[address] Jan, [facility] [place] [facility] [address] [id number] [place] [address] Jan, [facility] [place] [facility] [address] [id number] [place] [address]- 8565 Jan, [facility] [place] [facility] [address] [id number] [place] [address]- [address] 23 Dec, 2013 [facility] [place] [facility] [address] [id number] [place] [address]- [address] 23 Dec, 2013 [facility] [place] [facility] [address] [id number] [place] [address]- 9448 16 Dec, 2013 [facility] [place] [facility] [address] [id number] [place] [address]- [address] 16 Dec, 2013 [facility] [address] [facility] [id number], [place] [address] 12 Dec, 2013 [facility] [address] [facility] [id number], [place] [address] 12 Dec, 2013 [facility] [address] [facility] [id number], [place] [address] Dec, 2013 [facility] [address] [facility] [id number], [place] [address] Dec, 2013 [facility] [address] [facility] [id number], [place] [address] 2016 Dec, 2013 [facility] [address] [facility] [id number], [place] [address] Dec, 2013 [facility] [address] [facility] [id number], [place] [address] Dec, 2013 [facility] [address] [facility] [id number], [place] [address] Dec, 2013 [facility] [address] [facility] [id number], [place] [address] Dec, 2013 [facility] [address] [id number], [place] [address] Dec, [facility] [address] [id number], [place] [address] Dec, [facility] [address] [id number], [place] [address] Nov, [facility] [address] [facility] [id number], [place] [address] Nov, IMMUNIZATIONS No Known Immunizations SOCIAL HISTORY Never Assessed REASON FOR VISIT OB f/u PLAN OF CARE Activity Details Follow Up 1 Week Reason: VITAL SIGNS Weight 172.2 lbs 2017-12-19 Blood pressure systolic 102 mmHg 2017-12-19 Blood pressure diastolic 60 mmHg 2017-12-19 MEDICATIONS Medication Instructions Dosage Frequency Start Date End Date Duration Status Wrist Splint/Cock-Up/Left Sm - as directed Oct, 90 days Unknown Vitamin 27-0.8 MG Orally Once a day 1 tablet 24h May, 90 days Active Omeprazole 20 mg Orally Once a day 1 capsule 24h Apr, 30 day(s ) Unknown Wrist Splint/Cock-Up/Right Sm - as directed Oct, 90 days Unknown RESULTS Name Result Date Reference Range UA OB DIP (IN HOUSE) Glucose negative Protein negative PROCEDURES Procedure Date Ordered Result Body Site URINE-NO MICRO Dec 19, 2017 INSTRUCTIONS MEDICATIONS ADMINISTERED No Known Medications [...]
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
--- OUTSIDE RECORDS SUMMARY | 2018-01-16 05:49 | XMS REPORT ---
Author Author REGLA LINDSAY [facility] Address [address] [place] [address] Care Team Providers Care Childhood Teacher Name Role Phone REGLA LINDSAY Unavailable PROBLEMS Type Condition ICD9-CM Code DDW88-YY Code Onset Dates Condition Status SNOMED Code Problem Encounter for supervision of other normal , second trimester Z34.82 Active 34177511 Problem Obesity complicating , second trimester O99.212 Active 719064082056 Problem Radiation exposure affecting in second trimester O09.892 Active 064010743 Problem Encounter for supervision of other normal , third trimester Z34.83 Active 36495427 Problem Obesity complicating in third trimester O99.213 Active 976794718754 Problem Bilateral carpal tunnel syndrome G56.03 Active [id number] Problem Interstitial cystitis (chronic) with hematuria N30.11 Active 229937329 Problem Radiation exposure complicating in third trimester O09.893 Active 647685707 Problem Uterine size-date discrepancy in third trimester O26.843 Active 236439390 Problem Pain in left shoulder M25.512 Active 05837640 Problem Pain in right shoulder M25.511 Active 90510206 Problem Low lying placenta NOS or without hemorrhage, second trimester O44.42 Active 864395179 Problem Chronic GERD K21.9 Active 939398825 Problem PCOS (polycystic ovarian syndrome) E28.2 Active 46456162 Problem Other chronic pain G89.29 Active 39921781 Problem Family history of other congenital malformations, deformations and chromosomal abnormalities Z82.79 Active 062500772 Problem Obesity (BMI 30.0-34.9) E66.9 Active 498148907773395 Problem Cardiac murmur, unspecified R01.1 Active 33923978 ALLERGIES No Information ENCOUNTERS Encounter Location Date Diagnosis [facility] [address] [id number] [place] [id number] Dec, [facility] [address] [id number] [id number] Nov, Encounter for supervision of other normal , third trimester Z34.83 ; Obesity complicating in third trimester O99.213 ; Radiation exposure complicating in third trimester O09.893 ; Uterine size-date discrepancy in third trimester O26.843 and Bilateral carpal tunnel syndrome G56.[address] [id number][place] [id number] Nov, Encounter for supervision of other normal , third trimester Z34.83 ; Obesity complicating in third trimester O99.213 ; Radiation exposure complicating in third trimester O09.893 ; Uterine size-date discrepancy in third trimester O26.843 ; Other chronic pain G89.29 and Bilateral carpal tunnel syndrome G56.03 [facility] [id number] [id number][place] [id number] Nov, Encounter for supervision of other normal , third trimester Z34.83 ; Obesity complicating in third trimester O99.213 ; Bilateral carpal tunnel syndrome G56.03 ; Uterine size-date discrepancy in third trimester O26.843 ; Radiation exposure complicating in third trimester O09.893 ; Encounter for immunization Z23 and Other chronic pain G89.[address] [id number][place] [id number] Oct, Encounter for supervision of other normal , second trimester Z34.82 ; Radiation exposure affecting in second trimester O09.892 ; Obesity complicating , second trimester O99.212 ; Cardiac murmur, unspecified R01.1 ; Interstitial cystitis (chronic) with hematuria N30.11 ; Chronic GERD K21.9 ; Bilateral carpal tunnel syndrome G56.03 and Uterine size- date discrepancy in third trimester O26.[address] [id number], [place] [id number] Oct, Chronic GERD K21.9 [facility] [address] [id number] [place] [id number] Oct, Encounter for supervision of other normal , second trimester Z34.[address] [id number] [place] [id number] Oct, Low lying placenta NOS or without hemorrhage, second trimester O44.42 [facility] [address] [id number][place] [address] Sep, Encounter for supervision of other normal , second trimester Z34.82 ; Radiation exposure affecting in second trimester O09.892 ; Low lying placenta NOS or without hemorrhage, second trimester O44.42 ; Cellulitis of left upper extremity L03.114 and Cellulitis of left finger L03.012 [facility] ER[address]ST [address] [place] [address] AVE [id number], [place] [id number] Sep, Encounter for supervision of other normal , second trimester Z34.82 ; Interstitial cystitis (chronic) with hematuria N30.11 ; Obesity complicating , second trimester O99.212 ; Radiation exposure affecting in second trimester O09.892 and Low lying placenta NOS or without hemorrhage, second trimester O44.42 [facility] [address] [id number] [place] [address] Sep, Dysuria R30.0 [facility] [address] [id number], [place] [id number] Sep, Dysuria R30.0 and Other specified related conditions, second trimester O26.892 [facility] ER[address] [place] [address] AVE [id number], [place] [id number] August, [facility] [address] [id number][place] [id number] August, Encounter for supervision of other normal , second trimester Z34.82 ; Obesity complicating , second trimester O99.212 ; Radiation exposure affecting in second trimester O09.892 ; Chronic GERD K21.9 ; Family history of other congenital malformations, deformations and chromosomal abnormalities Z82.79 and Cardiac murmur, unspecified R01.1 [facility] ER[address] [place] [address] AVE [id number], [place] [address] Jul, Encounter for supervision of other normal , first trimester Z34.81 ; Obesity complicating , first trimester O99.211 and Radiation exposure affecting in first trimester O09.891 [facility] [address] [id number][place] [address] Jul, Urinary tract infection N39.0 and UTI (urinary tract infection) in in first trimester O23.[address] [facility] [address] [id number], [place] [address] Jun, Encounter for supervision of other normal , first trimester Z34.[address] [facility] [address] [id number], [place] [address] Jun, Encounter for supervision of other normal , first trimester Z34.81 ; Radiation exposure affecting in first trimester O09.891 ; Family history of other congenital malformations, deformations and chromosomal abnormalities Z82.79 ; Cardiac murmur, unspecified R01.1 and Obesity complicating in first trimester O99.[address] [facility] [address] [id number], [place] [id number] May, [facility] test Z32.[facility] [address] [id number], [place] [id number] May, Less than 8 weeks gestation of Z3A.[address] [facility] [address] [id number], [place] [address] May, [facility] [address] [id number], [place] [address] May, PCOS (polycystic ovarian syndrome) E28.[address] [facility] [address] [id number], [place] [address] May, PCOS (polycystic ovarian syndrome) E28.[address] [facility] [address] [id number], [place] [address] May, PCOS (polycystic ovarian syndrome) E28.[address] [facility] [address] [id number], [place] [address] Apr, [facility] [address] [id number], [place] [id number] Apr, [address] [id number], [place] [address] Apr, Obesity (BMI 30.0-34.9) E66.9 ; Cardiac murmur, previously undiagnosed R01.1 ; Chronic GERD K21.9 ; Other chronic pain G89.29 ; Pain in left shoulder M25.512 ; Pain in right shoulder M25.511 ; History of abnormal cervical Pap smear Z87.898 and Encounter to establish care Z76.[address] [id number], [place] [id number] Apr, Encounter for Nexplanon removal Z30.[address] [id number], [place] [id number] Feb, Visit for TB skin test Z11.1 and Encounter for immunization Z23 [place] [address] [place] [id number] [place] [address] Oct, Nexplanon insertion V25.5 [place] [address] [place] [address] [address] Oct, General counseling and advice for contraceptive management V25.09 [place] [address] [place] [id number] [place] [address] 16 Sep, 2014 Routine follow-up V24.2 [place] [address] [place] [id number] [place] [address] Jul, Supervision of other normal V22.1 [place] [address] [address] Jul, [place] [address] [address] Jul, [place] [address] [address] Jun, [place] [address] [place] [address] Jun, [facility] [place] [facility] [address] [id number] [place] [address] Jun, [facility] [place] [facility] [address] [id number] [place] [address] Jun, [facility] [place] [facility] [address] [id number] [place] [address] May, 2014 [facility] [place] [facility] [address] [id number] [place] [address] May, 2014 [facility] [place] [facility] [address] [id number] [place] [address] May, 2014 [facility] [place] [facility] [address] [id number] [place] [address] May, 2014 [facility] [place] [facility] [address] [facility] [id number] [place] [address] May, [facility] [place] [facility] [address] [id number] [place] [address] May, [facility] [place] [facility] [address] [facility] [id number] [place] [address] Apr, [facility] [place] [facility] [address] [facility] [id number] [place] [address] Apr, [facility] [place] [facility] [address] [facility] [id number] [place] [address] Apr, [facility] [place] [facility] [address] [id number] [place] [address] Apr, [facility] [place] [facility] [address] [id number] [place] [address] Mar, [facility] [place] [facility] [address] [id number] [place] [address] Mar, [facility] [place] [facility] [address] [facility] [id number] [place] [address] Mar, [facility] [place] [facility] [address] [id number] [place] [address] Mar, [facility] [place] [facility] [address] [id number] [place] [address] Mar, [facility] [place] [facility] [address] [id number] [place] [address] Mar, [facility] [place] [facility] [address] [id number] [place] [address]- [address] Mar, [facility] [place] [facility] [address] [id number] [place] [address] Mar, [facility] [place] [facility] [address] [id number] [place] [address] Mar, [facility] [place] [facility] [address] [id number] [place] [address] Mar, [facility] [place] [facility] [address] [id number] [place] [address] Jan, [facility] [place] [facility] [address] [id number] [place] [address]- [address] Jan, [facility] [place] [facility] [address] [id number] [place] [address] Jan, [facility] [place] [facility] [address] [id number] [place] [address] Jan, [facility] [place] [facility] [address] [id number] [place] [address]- [address] Jan, [facility] [place] [facility] [address] [id number] [place] [address] Jan, [facility] [place] [facility] [address] [id number] [place] [address]- [address] Jan, [facility] [place] [facility] [address] [id number] [place] [address]- [address] Jan, [facility] [place] [facility] [address] [id number] [place] [address]- [address]843 02 Jan, 2013 [facility] [place] [facility] [address] [id number] [place] [address]- [address] 02 Jan, 2013 [facility] [place] [facility] [address] [id number] [place] [address]- [address] 23 Sep, 2013 [facility] [place] [facility] [address] [id number] [place] [address]- 359[address] 23 Sep, 2013 [facility] [place] [facility] [address] [id number] [place] [address]- [address] 16 Sep, 2013 [facility] [place] [facility] [address] [id number] [place] [address]- [address]863 16 Sep, 2013 [facility] [place] [facility] [address] [id number] [place] [address]- 97[address] 12 Sep, 2013 [facility] [place] [facility] [address] [id number] [place] [address]- [address] 12 Sep, 2013 [facility] [place] [facility] [address] [id number] [place] [address]- 290[address] 10 Sep, 2013 [facility] [place] [facility] [address] [id number] [place] [address]- [address] 10 Sep, 2013 [facility] [place] [facility] [address] [id number] [place] [address]- [address]647 09 Sep, 2013 [facility] [place] [facility] [address] [id number] [place] [address]- 8844 08 Sep, 2013 [facility] [place] [facility] [address] [id number] [place] [address]- [address] 08 Sep, 2013 [facility] [place] [facility] [address] [id number] [place] [address]- [address]44 08 Sep, 2013 [facility] [place] [facility] [address] [id number] [place] [address]- [address] 08 Sep, 2013 [facility] [place] [facility] [address] [id number] [place] [address] 04 Sep, 2013 [facility] [place] [facility] [address] [facility] [id number] [place] [address] Dec, [facility] [address] [facility] [id number] [place] [address] Nov, [facility] [address] [facility] [id number] [place] [address] Nov, IMMUNIZATIONS No Known Immunizations SOCIAL HISTORY Never Assessed REASON FOR VISIT refill omeprazole PLAN OF CARE VITAL SIGNS MEDICATIONS Medication Instructions Dosage Frequency Start Date End Date Duration Status Omeprazole 20 mg Orally Once a day 1 capsule 24h Apr, 30 day(s ) Active RESULTS No Results PROCEDURES No Known procedures INSTRUCTIONS MEDICATIONS ADMINISTERED No Known Medications MEDICAL (GENERAL) HISTORY Type Description Date Medical 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
--- OUTSIDE RECORDS SUMMARY | 2018-01-16 05:49 | XMS REPORT ---
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 Name Role Phone IGNACIOMICHAELABRIL MARY Unavailable PROBLEMS Type Condition ICD9-CM Code RJS92-YI Code Onset Dates Condition Status SNOMED Code Problem Encounter for supervision of other normal , second trimester Z34.82 Active 89937490 Problem Obesity complicating , second trimester O99.212 Active 384809095982 Problem Radiation exposure affecting in second trimester O09.892 Active 583030475 Problem Encounter for supervision of other normal , third trimester Z34.83 Active 27048535 Problem Obesity complicating in third trimester O99.213 Active 497405243118 Problem Bilateral carpal tunnel syndrome G56.03 Active [id number] Problem Interstitial cystitis (chronic) with hematuria N30.11 Active 718693941 Problem Radiation exposure complicating in third trimester O09.893 Active 809965170 Problem Uterine size-date discrepancy in third trimester O26.843 Active 779886244 Problem Pain in left shoulder M25.512 Active 36072599 Problem Pain in right shoulder M25.511 Active 80981943 Problem Low lying placenta NOS or without hemorrhage, second trimester O44.42 Active 517310282 Problem Chronic GERD K21.9 Active 469419145 Problem PCOS (polycystic ovarian syndrome) E28.2 Active 94614722 Problem Other chronic pain G89.29 Active 66750098 Problem Family history of other congenital malformations, deformations and chromosomal abnormalities Z82.79 Active 311325163 Problem Obesity (BMI 30.0-34.9) E66.9 Active 494511094754609 Problem Cardiac murmur, unspecified R01.1 Active 74912976 ALLERGIES No Known Allergies ENCOUNTERS Encounter Location Date Diagnosis [address] [id number] [id number] Dec, CHCKEILA Stephens [facility] [address] [id number] [place] [id number] Dec, [facility] [id number] [id number] Dec, Encounter for supervision of other normal , third trimester Z34.83 ; Obesity complicating in third trimester O99.213 ; Radiation exposure complicating in third trimester O09.893 and Uterine size-date discrepancy in third trimester O26.[address] [id number] [address] Nov, Encounter for supervision of other normal , third trimester Z34.83 ; Obesity complicating in third trimester O99.213 ; Radiation exposure complicating in third trimester O09.893 ; Uterine size-date discrepancy in third trimester O26.843 and Bilateral carpal tunnel syndrome G56.[address] [id number] [place] [address] Nov, Encounter for supervision of other normal , third trimester Z34.83 ; Obesity complicating in third trimester O99.213 ; Radiation exposure complicating in third trimester O09.893 ; Uterine size-date discrepancy in third trimester O26.843 ; Other chronic pain G89.29 and Bilateral carpal tunnel syndrome G56.03 [facility] [id number] [place] [id number] Nov, Encounter for supervision of other normal , third trimester Z34.83 ; Obesity complicating in third trimester O99.213 ; Bilateral carpal tunnel syndrome G56.03 ; Uterine size-date discrepancy in third trimester O26.843 ; Radiation exposure complicating in third trimester O09.893 ; Encounter for immunization Z23 and Other chronic pain G89.[address] [id number] [place] [address] Oct, Encounter for supervision of other normal , second trimester Z34.82 ; Radiation exposure affecting in second trimester O09.892 ; Obesity complicating , second trimester O99.212 ; Cardiac murmur, unspecified R01.1 ; Interstitial cystitis (chronic) with hematuria N30.11 ; Chronic GERD K21.9 ; Bilateral carpal tunnel syndrome G56.03 and Uterine size- date discrepancy in third trimester O26.843 [facility] [address] [facility] [id number] [place] [address] Oct, Chronic GERD K21.9 [facility] [address] [id number][place] [address] Oct, Encounter for supervision of other normal , second trimester Z34.82 [facility] [address] [facility] [id number] [place] [address] Oct, Low lying placenta NOS or without hemorrhage, second trimester O44.[address] [id number][place] [address] Sep, Encounter for supervision of other normal , second trimester Z34.82 ; Radiation exposure affecting in second trimester O09.892 ; Low lying placenta NOS or without hemorrhage, second trimester O44.42 ; Cellulitis of left upper extremity L03.114 and Cellulitis of left finger L03.[address] [id number][place] [address] Sep, Encounter for supervision of other normal , second trimester Z34.82 ; Interstitial cystitis (chronic) with hematuria N30.11 ; Obesity complicating , second trimester O99.212 ; Radiation exposure affecting in second trimester O09.892 and Low lying placenta NOS or without hemorrhage, second trimester O44.42 [facility] [address] [id number] [place] [address] Sep, Dysuria R30.0 [facility] [address] [id number][place] [address] Sep, Dysuria R30.0 and Other specified related conditions, second trimester O26.892 [facility] [address] [id number], [place] [id number] August, [facility] [address] [id number][place] [address] August, Encounter for supervision of other normal , second trimester Z34.82 ; Obesity complicating , second trimester O99.212 ; Radiation exposure affecting in second trimester O09.892 ; Chronic GERD K21.9 ; Family history of other congenital malformations, deformations and chromosomal abnormalities Z82.79 and Cardiac murmur, unspecified R01.[address] [id number][place] [address] Jul, Encounter for supervision of other normal , first trimester Z34.81 ; Obesity complicating , first trimester O99.211 and Radiation exposure affecting in first trimester O09.891 [facility] [address] [id number], [place] [address] Jul, Urinary tract infection N39.0 and UTI (urinary tract infection) in in first trimester O23.41 [facility] [address] [id number][place] [address] Jun, Encounter for supervision of other normal , first trimester Z34.81 [facility] [id number], [place] [address] Jun, Encounter for supervision of other normal , first trimester Z34.81 ; Radiation exposure affecting in first trimester O09.891 ; Family history of other congenital malformations, deformations and chromosomal abnormalities Z82.79 ; Cardiac murmur, unspecified R01.1 and Obesity complicating in first trimester O99.[address] [id number], [place] [id number] May, Positive test Z32.[address] [id number], [place] [address] May, Less than 8 weeks gestation of Z3A.[address] [id number][place] [address] May, [facility] [address] [id number], [place] [address] May, PCOS (polycystic ovarian syndrome) E28.2 [facility] ERNST [address] [place] [address] AV [id number], [place] [id number] May, PCOS (polycystic ovarian syndrome) E28.2 [facility] [address]PS[address] [id number], [place] [address] May, PCOS (polycystic ovarian syndrome) E28.2 [facility]be [address]PSERNST[address] [id number], [place] [id number] Apr, [facility] ERNST [address] [place] [address] AVE [id number], [place] [address] Apr, [facility] [address]PSERNST[address] AV [id number], [place] [address] Apr, Obesity (BMI 30.0-34.9) E66.9 ; Cardiac murmur, previously undiagnosed R01.1 ; Chronic GERD K21.9 ; Other chronic pain G89.29 ; Pain in left shoulder M25.512 ; Pain in right shoulder M25.511 ; History of abnormal cervical Pap smear Z87.898 and Encounter to establish care Z76.[address] [id number], [place] [address] Apr, Encounter for Nexplanon removal Z30.[address] [id number], [place] [address] Feb, Visit for TB skin test Z11.1 and Encounter for immunization Z23 [address] [address] [address] [place] [address] 30 Oct, 2014 Nexplanon insertion V25.5 [place] [address] [address] [place] [id number] [place] [address] 14 Oct, 2014 General counseling and advice for contraceptive management V25.09 [place] [address] [id number] [place] [address] 16 Sep, 2014 Routine follow-up V24.2 [place] [address] [address] 28 Jul, 2014 Supervision of other normal V22.1 [facility] [address] [id number] [place] [address] 14 Jul, 2014 [facility] [address] [id number] [place] [address] Jul, [facility] [address] [facility] [id number], [place] [address] 23 Jun, 2014 [facility] [address] [id number] [place] [address] Jun, [facility] [address] [facility] [id number] [place] [address] Jun, [facility] [address] [facility] [id number] [place] [address] Jun, [facility] [address] [facility] [id number] [place] [address] 18 May, 2014 [facility] [address] [facility] [id number], [place] [address] May, [facility] [address] [id number] [place] [address] May, [facility] [address] [facility] [id number], [place] [address] May, [facility] [address] [facility] [id number] [place] [address] May, [facility] [address] [facility] [id number][place] [address] May, [facility] [address] [facility] [id number] [place] [address] Apr, [facility] [address] [facility] [id number], [place] [address] Apr, [facility] [address] [id number], [place] [address] Apr, [facility] [place] [facility] [address] [id number] [place] [address] Apr, [facility] [place] [facility] [address] [id number] [place] [address] Mar, [facility] [place] [facility] [address] [id number] [place] [address] Mar, [facility] [place] [facility] [address] [id number] [place] [address] Mar, [facility] [place] [facility] [address] [id number] [place] [address] Mar, [facility] [place] [facility] [address] [id number] [place] [address] Mar, [facility] [place] [facility] [address] [id number] [place] [address] Mar, [facility] [place] [facility] [address] [id number] [place] [address] Mar, [facility] [place] [facility] [address] [id number] [place] [address] Mar, [facility] [place] [facility] [address] [id number] [place] [address] Mar, [facility] [place] [facility] [address] [id number] [place] [address] Mar, [facility] [place] [facility] [address] [id number], [place] [address] Jan, [facility] [place] [facility] [address] [id number] [place] [address] Jan, [facility] [place] [facility] [address] [id number] [place] [address] Jan, [facility] [place] [facility] [address] [id number] [place] [address] Jan, [facility] [place] [facility] [address] [id number] [place] [address] 06 Jan, 2014 [facility] [place] [facility] [address] [id number] [place] [address] 06 Jan, 2013 [facility] [place] [facility] [address] [id number] [place] [address]- [address] 05 Jan, 2014 [facility] [place] [facility] [address] [id number] [place] [address]- [address] Jan, [facility] [place] [facility] [address] [id number] [place] [address] Jan, [facility] [place] [facility] [address] [id number] [place] [address] 02 Jan, 2014 [facility] [place] [facility] [address] [id number] [place] [address] 23 Dec, 2013 [facility] [place] [facility] [address] [id number] [place] [address] 23 Sep, 2013 [facility] [place] [facility] [address] [id number] [place] [address]- [address] 16 Sep, 2013 [facility] [place] [facility] [address] [id number] [place] [address]- [address] 16 Sep, 2013 [facility] [place] [facility] [address] [id number] [place] [address]- [address] 12 Sep, 2013 [facility] [place] [facility] [address] [id number] [place] [address] 77[address] 12 Sep, 2013 [facility] [place] [facility] [address] [id number], [place] [address] 10 Sep, 2013 [facility] [place] [facility] [address] [id number] [place] [address] 10 Sep, 2013 [facility] [place] [facility] [address] [id number] [place] [address]- [address] 09 Sep, 2013 [facility] [place] [facility] [address] [id number] [place] [address]- 79[address] 08 Sep, 2013 [facility] [place] [facility] [address] [id number], [place] [address] Dec, [facility] [address]00565100[place], [place] [address] Dec, [facility] [address]00565100[place], [place] [address] Dec, [facility] [address]00565100[place], [place] [address] Dec, [facility] [address] [id number], [place] [address] Dec, [facility] [address]00565100[place], [place] [address] Nov, [facility] [address]00565100[place], [place] [address] Nov, IMMUNIZATIONS Vaccine Route Administration Date Status TDAP (BOOSTRIX) IM Intramuscular Nov 11, 2017 Administered SOCIAL HISTORY Never Assessed REASON FOR VISIT OB f/lin Jacobs ma PLAN OF CARE Activity Details Follow Up 2 Weeks with Ultrasound Reason: VITAL SIGNS Height 60 in 2017-11-11 Weight 169.0 lbs 2017-11-11 Temperature 97.3 degrees Fahrenheit 2017-11-11 Heart Rate 83 bpm 2017-11-11 Respiratory Rate 18 2017-11-11 Oximetry 98 % 2017-11-11 BMI 33.006 kg/m2 2017-11-11 Blood pressure systolic 106 mmHg 2017-11-11 Blood pressure diastolic 70 mmHg 2017-11-11 MEDICATIONS Medication Instructions Dosage Frequency Start Date End Date Duration Status Vitamin 27-0.8 MG Orally Once a day 1 tablet 24h May, 90 days Active Wrist Splint/Cock-Up/Left Sm - as directed Oct, 90 days Active Wrist Splint/Cock-Up/Right Sm - as directed Oct, 90 days Active Omeprazole 20 mg Orally Once a day 1 capsule 24h Apr, 30 day(s ) Active RESULTS Name Result Date Reference Range UA OB DIP (IN HOUSE) 2017-11-11 Glucose negative Protein negative PROCEDURES Procedure Date Ordered Result Body Site URINE-NO MICRO Nov 11, 2017 SINGLE IMMUNIZATION ADMIN Nov 11, 2017 TDAP (BOOSTRIX) Nov 11, 2017 INSTRUCTIONS MEDICATIONS ADMINISTERED No Known Medications MEDICAL (GENERAL) HISTORY Type Description Date Medical History 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
--- OUTSIDE RECORDS SUMMARY | 2018-01-16 05:50 | XMS REPORT ---
Author Author MARY CHAVEZ [facility] Address [address] [place] [address] Care Team Providers Care Industrial Hygiene Manager Name Role Phone IGNACIOMICHAELABRIL MARY Unavailable PROBLEMS Type Condition ICD9-CM Code AWT51-XN Code Onset Dates Condition Status SNOMED Code Problem Encounter for supervision of other normal , second trimester Z34.82 Active 17518735 Problem Obesity complicating , second trimester O99.212 Active 840823114748 Problem Radiation exposure affecting in second trimester O09.892 Active 711196608 Problem Encounter for supervision of other normal , third trimester Z34.83 Active 94034836 Problem Obesity complicating in third trimester O99.213 Active 643825109387 Problem Bilateral carpal tunnel syndrome G56.03 Active 00984761139225611 Problem Interstitial cystitis (chronic) with hematuria N30.11 Active 485089641 Problem Radiation exposure complicating in third trimester O09.893 Active 165686203 Problem Uterine size-date discrepancy in third trimester O26.843 Active 261004859 Problem Pain in left shoulder M25.512 Active 25308094 Problem Pain in right shoulder M25.511 Active 79567188 Problem Low lying placenta NOS or without hemorrhage, second trimester O44.42 Active 886871378 Problem Chronic GERD K21.9 Active 326861018 Problem PCOS (polycystic ovarian syndrome) E28.2 Active 03589163 Problem Other chronic pain G89.29 Active 67399841 Problem Family history of other congenital malformations, deformations and chromosomal abnormalities Z82.79 Active 755016327 Problem Obesity (BMI 30.0-34.9) E66.9 Active 333785382057861 Problem Cardiac murmur, unspecified R01.1 Active 35728569 ALLERGIES No Information ENCOUNTERS Encounter Location Date Diagnosis [address] [id number] [id number] Dec, [address] [id number][place] [id number] Nov, Encounter for supervision of other normal , third trimester Z34.83 ; Obesity complicating in third trimester O99.213 ; Radiation exposure complicating in third trimester O09.893 ; Uterine size-date discrepancy in third trimester O26.843 and Bilateral carpal tunnel syndrome G56.[address] [id number][place] [address] Nov, Encounter for supervision of other normal , third trimester Z34.83 ; Obesity complicating in third trimester O99.213 ; Radiation exposure complicating in third trimester O09.893 ; Uterine size-date discrepancy in third trimester O26.843 ; Other chronic pain G89.29 and Bilateral carpal tunnel syndrome G56.03 [facility] [place] [id number] [facility] [address] [id number][place] [id number] Nov, Encounter for supervision of other normal , third trimester Z34.83 ; Obesity complicating in third trimester O99.213 ; Bilateral carpal tunnel syndrome G56.03 ; Uterine size-date discrepancy in third trimester O26.843 ; Radiation exposure complicating in third trimester O09.893 ; Encounter for immunization Z23 and Other chronic pain G89.[address] [id number][place] [id number] Oct, Encounter for supervision of other normal , second trimester Z34.82 ; Radiation exposure affecting in second trimester O09.892 ; Obesity complicating , second trimester O99.212 ; Cardiac murmur, unspecified R01.1 ; Interstitial cystitis (chronic) with hematuria N30.11 ; Chronic GERD K21.9 ; Bilateral carpal tunnel syndrome G56.03 and Uterine size- date discrepancy in third trimester O26.[address] [id number][place] [id number] Oct, Chronic GERD K21.[address] [id number] [place] [id number] Oct, Encounter for supervision of other normal , second trimester Z34.82 [facility] [address] [id number] [place] [address] Oct, Low lying placenta NOS or without hemorrhage, second trimester O44.42 [facility] [address] [id number], [place] [id number] Sep, Encounter for supervision of other normal , second trimester Z34.82 ; Radiation exposure affecting in second trimester O09.892 ; Low lying placenta NOS or without hemorrhage, second trimester O44.42 ; Cellulitis of left upper extremity L03.114 and Cellulitis of left finger L03.012 [facility] ER[facility] [address] [place] [address] AVE [id number], [place] [address] Sep, Encounter for supervision of other normal , second trimester Z34.82 ; Interstitial cystitis (chronic) with hematuria N30.11 ; Obesity complicating , second trimester O99.212 ; Radiation exposure affecting in second trimester O09.892 and Low lying placenta NOS or without hemorrhage, second trimester O44.42 [facility] [address] [id number] [place] [address] Sep, Dysuria R30.0 [facility] [address] [place] [address] AVE [id number], [place] [address] Sep, Dysuria R30.0 and Other specified related conditions, second trimester O26.892 [facility] [address] [facility] [address] [id number], [place] [id number] August, [place] [address] [id number][place] [id number] August, Encounter for supervision of other normal , second trimester Z34.82 ; Obesity complicating , second trimester O99.212 ; Radiation exposure affecting in second trimester O09.892 ; Chronic GERD K21.9 ; Family history of other congenital malformations, deformations and chromosomal abnormalities Z82.79 and Cardiac murmur, unspecified R01.1 [facility] [address] [place] [address] AVE [id number], [place] [id number] Jul, Encounter for supervision of other normal , first trimester Z34.81 ; Obesity complicating , first trimester O99.211 and Radiation exposure affecting in first trimester O09.891 [facility] [address] [id number][place] [id number] Jul, Urinary tract infection N39.0 and UTI (urinary tract infection) in in first trimester O23.41 [facility] [address] [id number], [place] [id number] Jun, Encounter for supervision of other normal , first trimester Z34.81 [facility] [address] [id number][place] [address] Jun, Encounter for supervision of other normal , first trimester Z34.81 ; Radiation exposure affecting in first trimester O09.891 ; Family history of other congenital malformations, deformations and chromosomal abnormalities Z82.79 ; Cardiac murmur, unspecified R01.1 and Obesity complicating in first trimester O99.211 [facility] [address] [id number], [place] [id number] May, Positive test Z32.01 [facility] [address] [id number], [place] [id number] May, Less than 8 weeks gestation of Z3A.01 [facility] [address] [id number], [place] [id number] May, [facility] [address] [id number], [place] [address] May, PCOS (polycystic ovarian syndrome) E28.2 [facility] [address] [id number], [place] [id number] May, PCOS (polycystic ovarian syndrome) E28.2 [facility] [address] [id number], [place] [address] May, PCOS (polycystic ovarian syndrome) E28.2 [facility] [address] [id number], [place] [id number] Apr, [facility] EPPSERNST Angelo [facility] [address] [id number] [place] [id number] Apr, [facility] Stephens [facility] [address] [id number], [place] [id number] Apr, Obesity (BMI 30.0-34.9) E66.9 ; Cardiac murmur, previously undiagnosed R01.1 ; Chronic GERD K21.9 ; Other chronic pain G89.29 ; Pain in left shoulder M25.512 ; Pain in right shoulder M25.511 ; History of abnormal cervical Pap smear Z87.898 and Encounter to establish care Z76.[address] [id number], [place] [id number] Apr, Encounter for Nexplanon removal Z30.46 [facility] [address]ST[address] [id number], [place] [id number] Feb, Visit for TB skin test Z11.1 and Encounter for immunization Z23 [place] [address] [place] [id number] [place] [address] Oct, Nexplanon insertion V25.5 [place] [address] [place] [address] [id number] [place] [address] Oct, General counseling and advice for contraceptive management V25.09 [place] [address] [place] [address] [id number] [place] [address] 16 Sep, 2014 Routine follow-up V24.2 [place] [address] [id number] [place] [address] Jul, Supervision of other normal V22.1 [place] [address] [address] Jul, [place] [address] [address] Jul, [place] [address] [address] Jun, [facility] [place] [facility] [address] [id number] [place] [address] Jun, [facility] [place] [facility] [address] [id number] [place] [address] Jun, [facility] [place] [facility] [address] [id number] [place] [address] Jun, [facility] [place] [facility] [address] [id number] [place] [address] May, [facility] [place] [facility] [address] [id number] [place] [address] May, [facility] [place] [facility] [address] [id number] [place] [address] May, [facility] [place] [facility] [address] [facility] [id number] [place] [address] May, [facility] [place] [facility] [address] [id number] [place] [address] May, [facility] [place] [facility] [address] [id number] [place] [address] May, [facility] [place] [facility] [address] [facility] [id number] [place] [address] Apr, [facility] [place] [facility] [address] [facility] [id number] [place] [address] Apr, [facility] [place] [facility] [address] [id number][place] [address] Apr, [facility] [place] [facility] [address] [id number] [place] [address] Apr, [facility] [place] [facility] [address] [id number] [place] [address] Mar, [facility] [place] [facility] [address] [id number] [place] [address] Mar, [facility] [place] [facility] [address] [id number], [place] [address] Mar, [facility] [place] [facility] [address] [id number] [place] [address] Mar, [facility] [place] [facility] [address] [id number] [place] [address] Mar, [facility] [place] [facility] [address] [id number] [place] [address] Mar, [facility] [place] [facility] [address] [id number] [place] [address] Mar, [facility] [place] [facility] [address] [id number] [place] [address] Mar, [facility] [place] [facility] [address] [id number] [place] [address] Mar, [facility] [place] [facility] [address] [id number] [place] [address] Mar, [facility] [place] [facility] [address] [id number] [place] [address] Jan, [facility] [place] [facility] [address] [id number] [place] [address] 94[address] Jan, [facility] [place] [facility] [address] [id number][place] [address] Jan, [facility] [place] [facility] [address] [id number], [place] [address] Jan, [facility] [place] [facility] [address] [id number], [place] [address] Jan, [facility] [place] [facility] [address] [id number][place] [address] Jan, [facility] [place] [facility] [address] [id number], [place] [address] Jan, [facility] [place] [facility] [address] [id number] [place] [address]- [address] Jan, [facility] [place] [facility] [address] [id number] [place] [address]- [address] 02 Jan, 2013 [facility] [place] [facility] [address] [id number] [place] [address]- [address] 02 Jan, 2014 [facility] [place] [facility] [address] [id number] [place] [address]- 6036 23 Dec, 2013 [facility] [place] [facility] [address] [id number] [place] [address]- [address] 23 Sep, 2013 [facility] [place] [facility] [address] [id number] [place] [address]- [address]30 16 Sep, 2013 [facility] [place] [facility] [address] [id number] [place] [address]- [address] 16 Dec, 2013 [facility] [place] [facility] [address] [id number] [place] [address]- [address] 12 Dec, 2013 [facility] [place] [facility] [address] [id number] [place] [address]28 12 Dec, 2013 [facility] [place] [facility] [address] [id number] [place] [address]- 1805 10 Dec, 2013 [facility] [place] [facility] [address] [id number] [place] [address]- 2544 10 Dec, 2013 [facility] [place] [facility] [address] [id number] [place] [address]- [address] 09 Sep, 2013 [facility] [place] [facility] [address] [id number] [place] [address]- [address]47 08 Sep, 2013 [facility] [place] [facility] [address] [id number] [place] [address]- [address]47 08 Sep, 2013 [facility] [place] [facility] [address] [id number] [place] [address]- [address] 08 Sep, 2013 [facility] [place] [facility] [address] [id number] [place] [address]- [address]47 08 Sep, 2013 [facility] [place] [facility] [address] [id number] [place] [address] Dec, [facility] [address] [facility] [id number] [place] [address]- [address] Dec, [facility] [address] [facility] [id number][place] [address] Nov, [facility] [address] [facility] [id number][place] [address] Nov, IMMUNIZATIONS No Known Immunizations SOCIAL HISTORY Never Assessed REASON FOR VISIT change US order PLAN OF CARE VITAL SIGNS MEDICATIONS Unknown Medications RESULTS Name Result Date Reference Range Ultrasound : OB, Follow-up 2017-10-18 PROCEDURES No Known procedures INSTRUCTIONS MEDICATIONS ADMINISTERED No Known Medications MEDICAL (GENERAL) HISTORY Type Description Date Medical 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
--- OUTSIDE RECORDS SUMMARY | 2018-01-16 05:50 | XMS REPORT ---
Author Author MARY CHAVEZ [facility] Address [address] [place] [address] Care Team Providers Care Service [facility] Manager Name Role Phone IGNACIOMICHAELABRIL MARY Unavailable PROBLEMS Type Condition ICD9-CM Code LZP91-BM Code Onset Dates Condition Status SNOMED Code Problem Encounter for supervision of other normal , second trimester Z34.82 Active 97688029 Problem Obesity complicating , second trimester O99.212 Active 719062751854 Problem Radiation exposure affecting in second trimester O09.892 Active 239638977 Problem Encounter for supervision of other normal , third trimester Z34.83 Active 63031502 Problem Obesity complicating in third trimester O99.213 Active 980566183907 Problem Bilateral carpal tunnel syndrome G56.03 Active [id number] Problem Interstitial cystitis (chronic) with hematuria N30.11 Active 501285637 Problem Radiation exposure complicating in third trimester O09.893 Active 689288453 Problem Uterine size-date discrepancy in third trimester O26.843 Active 827264205 Problem Pain in left shoulder M25.512 Active 87426287 Problem Pain in right shoulder M25.511 Active 50049977 Problem Low lying placenta NOS or without hemorrhage, second trimester O44.42 Active 591922110 Problem Chronic GERD K21.9 Active 884781814 Problem PCOS (polycystic ovarian syndrome) E28.2 Active 33184096 Problem Other chronic pain G89.29 Active 98445625 Problem Family history of other congenital malformations, deformations and chromosomal abnormalities Z82.79 Active 757568990 Problem Obesity (BMI 30.0-34.9) E66.9 Active 737947168895100 Problem Cardiac murmur, unspecified R01.1 Active 62602441 ALLERGIES No Known Allergies ENCOUNTERS Encounter Location Date Diagnosis [address] [id number] [id number] Dec, [address] [id number] [id number] Nov, Encounter for supervision of other normal , third trimester Z34.83 ; Obesity complicating in third trimester O99.213 ; Radiation exposure complicating in third trimester O09.893 ; Uterine size-date discrepancy in third trimester O26.843 and Bilateral carpal tunnel syndrome G56.[address] [id number][place] [id number] Nov, Encounter for supervision of other normal , third trimester Z34.83 ; Obesity complicating in third trimester O99.213 ; Radiation exposure complicating in third trimester O09.893 ; Uterine size-date discrepancy in third trimester O26.843 ; Other chronic pain G89.29 and Bilateral carpal tunnel syndrome G56.03 [facility] [place] [address] [facility] [address] [id number][place] [address] Nov, Encounter for supervision of other normal , third trimester Z34.83 ; Obesity complicating in third trimester O99.213 ; Bilateral carpal tunnel syndrome G56.03 ; Uterine size-date discrepancy in third trimester O26.843 ; Radiation exposure complicating in third trimester O09.893 ; Encounter for immunization Z23 and Other chronic pain G89.[address] [id number][place] [id number] Oct, Encounter for supervision of other normal , second trimester Z34.82 ; Radiation exposure affecting in second trimester O09.892 ; Obesity complicating , second trimester O99.212 ; Cardiac murmur, unspecified R01.1 ; Interstitial cystitis (chronic) with hematuria N30.11 ; Chronic GERD K21.9 ; Bilateral carpal tunnel syndrome G56.03 and Uterine size- date discrepancy in third trimester O26.[address] [id number][place] [address] Oct, Chronic GERD K21.[address] [id number] [address] Oct, Encounter for supervision of other normal , second trimester Z34.82 [facility] MARISELA [address] [id number] [place] [id number] Oct, Low lying placenta NOS or without hemorrhage, second trimester O44.42 [facility] [address] [id number], [place] [address] Sep, Encounter for supervision of other normal , second trimester Z34.82 ; Radiation exposure affecting in second trimester O09.892 ; Low lying placenta NOS or without hemorrhage, second trimester O44.42 ; Cellulitis of left upper extremity L03.114 and Cellulitis of left finger L03.012 [facility] [address] [id number][place] [address] Sep, Encounter for supervision of other normal , second trimester Z34.82 ; Interstitial cystitis (chronic) with hematuria N30.11 ; Obesity complicating , second trimester O99.212 ; Radiation exposure affecting in second trimester O09.892 and Low lying placenta NOS or without hemorrhage, second trimester O44.42 [facility] [address] [id number] [place] [address] Sep, Dysuria R30.0 [facility] [address] [id number], [place] [address] Sep, Dysuria R30.0 and Other specified related conditions, second trimester O26.892 [facility] [address] [address] [facility] [address] [id number], [place] [address] August, [facility] [address] [id number][place] [address] August, Encounter for supervision of other normal , second trimester Z34.82 ; Obesity complicating , second trimester O99.212 ; Radiation exposure affecting in second trimester O09.892 ; Chronic GERD K21.9 ; Family history of other congenital malformations, deformations and chromosomal abnormalities Z82.79 and Cardiac murmur, unspecified R01.1 [facility] [address] [place] [address] AVE [id number], [place] [address] Jul, Encounter for supervision of other normal , first trimester Z34.81 ; Obesity complicating , first trimester O99.211 and Radiation exposure affecting in first trimester O09.891 [facility] [address] [id number][place] [id number] Jul, Urinary tract infection N39.0 and UTI (urinary tract infection) in in first trimester O23.41 [facility] [address] [id number], [place] [address] Jun, Encounter for supervision of other normal , first trimester Z34.81 [facility] [address] [id number], [place] [id number] Jun, Encounter for supervision of other normal , first trimester Z34.81 ; Radiation exposure affecting in first trimester O09.891 ; Family history of other congenital malformations, deformations and chromosomal abnormalities Z82.79 ; Cardiac murmur, unspecified R01.1 and Obesity complicating in first trimester O99.211 [facility] [address] [id number], [place] [id number] May, Positive test Z32.01 [facility] [address] [id number], [place] [address] May, Less than 8 weeks gestation of Z3A.01 [facility] [address] [id number], [place] [id number] May, [email or web address] [address] [id number], [place] [id number] May, PCOS (polycystic ovarian syndrome) E28.2 [facility] [id number], [place] [address] May, PCOS (polycystic ovarian syndrome) E28.2 [facility] [id number], [place] [address] May, PCOS (polycystic ovarian syndrome) E28.2 [facility] [id number], [place] [address] Apr, [facility] ER[facility]ST Angelo [facility] [address] [id number], [place] [address] Apr, [facility] EPPSERNST Angelo [facility] [id number], [place] [id number] Apr, Obesity (BMI 30.0-34.9) E66.9 ; Cardiac murmur, previously undiagnosed R01.1 ; Chronic GERD K21.9 ; Other chronic pain G89.29 ; Pain in left shoulder M25.512 ; Pain in right shoulder M25.511 ; History of abnormal cervical Pap smear Z87.898 and Encounter to establish care Z76.[address] [id number], [place] [address] Apr, Encounter for Nexplanon removal Z30.[address] [id number], [place] [id number] Feb, Visit for TB skin test Z11.1 and Encounter for immunization Z23 [place] [address] [place] [id number] [place] [address] Oct, Nexplanon insertion V25.5 [place] [address] [address] Oct, General counseling and advice for contraceptive management V25.09 [place] [address] [place] [id number] [place] [address] Sep, Routine follow-up V24.2 [place] [address] [place] [place] [id number] [place] [address] Jul, Supervision of other normal V22.1 [place] [address] [address] Jul, [place] [address] [address] Jul, [place] [address] [address] Jun, [facility] [place] [facility] [address] [id number] [place] [address] Jun, [facility] [place] [facility] [address] [id number] [place] [address] Jun, [facility] [place] [facility] [address] [id number] [place] [address] Jun, [facility] [place] [facility] [address] [id number] [place] [address] May, 2014 [facility] [place] [facility] [address] [id number] [place] [address] May, 2014 [facility] [place] [facility] [address] [id number] [place] [address] May, 2014 [facility] [place] [facility] [address] [facility] [id number] [place] [address] May, [facility] [place] [facility] [address] [id number] [place] [address] May, [facility] [place] [facility] [address] [id number] [place] [address] May, [facility] [place] [facility] [address] [facility] [id number] [place] [address] Apr, [facility] [place] [facility] [address] [facility] [id number] [place] [address] Apr, [facility] [place] [facility] [address] [id number] [place] [address] Apr, [facility] [place] [facility] [address] [id number] [place] [address] Apr, [facility] [place] [facility] [address] [id number] [place] [address] Mar, [facility] [place] [facility] [address] [id number] [place] [address] Mar, [facility] [place] [facility] [address] [id number] [place] [address] Mar, [facility] [place] [facility] [address] [id number] [place] [address] Mar, [facility] [place] [facility] [address] [id number] [place] [address] Mar, [facility] [place] [facility] [address] [facility] [id number] [place] [address] Mar, [facility] [place] [facility] [address] [id number] [place] [address] Mar, [facility] [place] [facility] [address] [id number] [place] [address] Mar, [facility] [place] [facility] [address] [facility] [id number] [place] [address] Mar, [facility] [place] [facility] [address] [facility] [id number] [place] [address]169 Mar, [facility] [place] [facility] [address] [facility] [id number] [place] [address] Jan, [facility] [place] [facility] [address] [facility] [id number] [place] [address]- [address] Jan, [facility] [place] [facility] [address] [facility] [id number] [place] [address]- [address] Jan, [facility] [place] [facility] [address] [facility] [id number] [place] [address] Jan, [facility] [place] [facility] [address] [facility] [id number] [place] [address]- [address] Jan, [facility] [place] [facility] [address] [id number] [place] [address]- [address] Jan, [facility] [place] [facility] [address] [facility] [id number] [place] [address]- [address] Jan, [facility] [place] [facility] [address] [facility] [id number] [place] [address]- [address] Jan, [facility] [place] [facility] [address] [id number] [place] [address]- [address]65 02 Jan, 2013 [facility] [place] [facility] [address] [id number] [place] [address]- [address] 02 Jan, 2013 [facility] [place] [facility] [address] [id number] [place] [address]- [address] 23 Dec, 2013 [facility] [place] [facility] [address] [id number] [place] [address] 2546 23 Sep, 2013 [facility] [place] [facility] [address] [id number] [place] [address]- [address]41 16 Dec, 2013 [facility] [place] [facility] [address] [id number] [place] [address]- [address]169 16 Dec, 2013 [facility] [place] [facility] [address] [id number] [place] [address]- [address] 12 Dec, 2013 [facility] [place] [facility] [address] [id number] [place] [address]- [address] 12 Dec, 2013 [facility] [place] [facility] [address] [id number] [place] [address] 2542 10 Dec, 2013 [facility] [place] [facility] [address] [id number] [place] [address]- [address]48 10 Dec, 2013 [facility] [place] [facility] [address] [id number] [place] [address]- [address] 09 Sep, 2013 [facility] [place] [facility] [address] [id number] [place] [address]- [address]48 08 Sep, 2013 [facility] [place] [facility] [address] [id number] [place] [address] 2548 08 Sep, 2013 [facility] [place] [facility] [address] [id number] [place] [address]- [address]46 08 Sep, 2013 [facility] [place] [facility] [address] [id number] [place] [address]- 2543 08 Sep, 2013 [facility] [place] [facility] [address] [id number] [place] [address]- 2544 Dec, [facility] [address] [facility] [id number] [place] [address]46 Dec, [facility] [address] [facility] [id number] [place] [address] Nov, [facility] [address] [facility] [id number] [place] [address] Nov, IMMUNIZATIONS No Known Immunizations SOCIAL HISTORY Never Assessed REASON FOR VISIT OB f/u--sharon RN PLAN OF CARE Activity Details Follow Up 2 - 3 Weeks Reason: Pending Test UA OB DIP (IN HOUSE) VITAL SIGNS Height 60 in 2017-10-03 Weight 160.4 lbs 2017-10-03 Temperature 96.8 degrees Fahrenheit 2017-10-03 Heart Rate 75 bpm 2017-10-03 Respiratory Rate 16 2017-10-03 BMI 31.326 kg/m2 2017-10-03 Blood pressure systolic 112 mmHg 2017-10-03 Blood pressure diastolic 67 mmHg 2017-10-03 MEDICATIONS Medication Instructions Dosage Frequency Start Date End Date Duration Status Keflex 500 mg Orally 3 times a day 1 capsule 8h Sep, Oct, 07 days Active Vitamin 27-0.8 MG Orally Once a day 1 tablet 24h May, 90 days Active Omeprazole 20 mg Orally Once a day 1 capsule 24h Apr, 30 day(s ) Active Diflucan 150 MG Orally q72 hours 1 tablet Sep, Oct, 10 day(s) Active RESULTS No Results PROCEDURES Procedure Date Ordered Result Body Site URINE-NO MICRO October 03, 2017 INSTRUCTIONS MEDICATIONS ADMINISTERED No Known Medications MEDICAL (GENERAL) HISTORY Type Description Date Medical 

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
--- OUTSIDE RECORDS SUMMARY | 2018-01-16 05:50 | XMS REPORT ---
Author Author MARY CHAVEZ [facility] Address [address] [place] [address] Care Team Providers Care Bounty Hunter Name Role Phone IGNACIOMICHAELABRIL MARY Unavailable PROBLEMS Type Condition ICD9-CM Code VPW65-NM Code Onset Dates Condition Status SNOMED Code Problem Encounter for supervision of other normal , second trimester Z34.82 Active 31730055 Problem Obesity complicating , second trimester O99.212 Active 031337004133 Problem Radiation exposure affecting in second trimester O09.892 Active 021468272 Problem Encounter for supervision of other normal , third trimester Z34.83 Active 62961948 Problem Obesity complicating in third trimester O99.213 Active 824746972065 Problem Bilateral carpal tunnel syndrome G56.03 Active [id number] Problem Interstitial cystitis (chronic) with hematuria N30.11 Active 548709239 Problem Radiation exposure complicating in third trimester O09.893 Active 038981883 Problem Uterine size-date discrepancy in third trimester O26.843 Active 154377318 Problem Pain in left shoulder M25.512 Active 33420086 Problem Pain in right shoulder M25.511 Active 80753587 Problem Low lying placenta NOS or without hemorrhage, second trimester O44.42 Active 982878686 Problem Chronic GERD K21.9 Active 618053911 Problem PCOS (polycystic ovarian syndrome) E28.2 Active 56571370 Problem Other chronic pain G89.29 Active 30767205 Problem Family history of other congenital malformations, deformations and chromosomal abnormalities Z82.79 Active 128465249 Problem Obesity (BMI 30.0-34.9) E66.9 Active 950561531343419 Problem Cardiac murmur, unspecified R01.1 Active 67441476 ALLERGIES No Information ENCOUNTERS Encounter Location Date Diagnosis [address] [id number][place] [id number] Dec, [address] [id number] [address] Nov, Encounter for supervision of other normal , third trimester Z34.83 ; Obesity complicating in third trimester O99.213 ; Radiation exposure complicating in third trimester O09.893 ; Uterine size-date discrepancy in third trimester O26.843 and Bilateral carpal tunnel syndrome G56.[address] [id number], [place] [id number] Nov, Encounter for supervision of other normal , third trimester Z34.83 ; Obesity complicating in third trimester O99.213 ; Radiation exposure complicating in third trimester O09.893 ; Uterine size-date discrepancy in third trimester O26.843 ; Other chronic pain G89.29 and Bilateral carpal tunnel syndrome G56.03 [facility] [place] [address] [facility] [address] [id number][place] [id number] Nov, Encounter for supervision of other normal , third trimester Z34.83 ; Obesity complicating in third trimester O99.213 ; Bilateral carpal tunnel syndrome G56.03 ; Uterine size-date discrepancy in third trimester O26.843 ; Radiation exposure complicating in third trimester O09.893 ; Encounter for immunization Z23 and Other chronic pain G89.[address] [id number], [place] [id number] Oct, Encounter for supervision of other normal , second trimester Z34.82 ; Radiation exposure affecting in second trimester O09.892 ; Obesity complicating , second trimester O99.212 ; Cardiac murmur, unspecified R01.1 ; Interstitial cystitis (chronic) with hematuria N30.11 ; Chronic GERD K21.9 ; Bilateral carpal tunnel syndrome G56.03 and Uterine size- date discrepancy in third trimester O26.[address] [id number][place] [address] Oct, Chronic GERD K21.[address] [place] [id number] [place] [id number] Oct, Encounter for supervision of other normal , second trimester Z34.82 [facility] [address] [id number] [place] [id number] Oct, Low lying placenta NOS or without hemorrhage, second trimester O44.42 [facility] [address] [id number][place] [address] Sep, Encounter for supervision of other normal , second trimester Z34.82 ; Radiation exposure affecting in second trimester O09.892 ; Low lying placenta NOS or without hemorrhage, second trimester O44.42 ; Cellulitis of left upper extremity L03.114 and Cellulitis of left finger L03.012 [facility] [employer] [place] [address] AVE [id number], [place] [id number] Sep, Encounter for supervision of other normal , second trimester Z34.82 ; Interstitial cystitis (chronic) with hematuria N30.11 ; Obesity complicating , second trimester O99.212 ; Radiation exposure affecting in second trimester O09.892 and Low lying placenta NOS or without hemorrhage, second trimester O44.42 [facility] [address] [id number] [place] [address] Sep, Dysuria R30.0 [facility] [employer] [place] [address] AVE [id number], [place] [address] Sep, Dysuria R30.0 and Other specified related conditions, second trimester O26.892 [facility] [address] [facility] [address] [id number][place] [id number] August, [place] [address] [id number][place] [address] August, Encounter for supervision of other normal , second trimester Z34.82 ; Obesity complicating , second trimester O99.212 ; Radiation exposure affecting in second trimester O09.892 ; Chronic GERD K21.9 ; Family history of other congenital malformations, deformations and chromosomal abnormalities Z82.79 and Cardiac murmur, unspecified R01.1 [facility] [employer] [place] [address] AVE [id number], [place] [id number] Jul, Encounter for supervision of other normal , first trimester Z34.81 ; Obesity complicating , first trimester O99.211 and Radiation exposure affecting in first trimester O09.891 [facility] [employer] [id number], [place] [id number] Jul, Urinary tract infection N39.0 and UTI (urinary tract infection) in in first trimester O23.41 [facility] [employer] [address] [id number], [place] [id number] Jun, Encounter for supervision of other normal , first trimester Z34.81 [facility] [employer] [address] [id number], [place] [address] Jun, Encounter for supervision of other normal , first trimester Z34.81 ; Radiation exposure affecting in first trimester O09.891 ; Family history of other congenital malformations, deformations and chromosomal abnormalities Z82.79 ; Cardiac murmur, unspecified R01.1 and Obesity complicating in first trimester O99.211 [facility] [employer] [address] [address] [id number], [place] [address] May, Positive test Z32.01 [facility] [employer] [address] [id number], [place] [id number] May, Less than 8 weeks gestation of Z3A.01 [facility] [employer] [address] [id number], [place] [address] May, [facility] [employer] [id number], [place] [address] May, PCOS (polycystic ovarian syndrome) E28.2 [facility] [employer] [id number], [place] [address] May, PCOS (polycystic ovarian syndrome) E28.2 [facility] [employer] [id number], [place] [id number] May, PCOS (polycystic ovarian syndrome) E28.2 [facility] [employer] [address] [id number], [place] [id number] Apr, [facility] [address] [id number] [place] [id number] Apr, [facility] [address] [id number], [place] [address] Apr, Obesity (BMI 30.0-34.9) E66.9 ; Cardiac murmur, previously undiagnosed R01.1 ; Chronic GERD K21.9 ; Other chronic pain G89.29 ; Pain in left shoulder M25.512 ; Pain in right shoulder M25.511 ; History of abnormal cervical Pap smear Z87.898 and Encounter to establish care Z76.[address] [id number], [place] [address] Apr, Encounter for Nexplanon removal Z30.46 [facility] [address] [id number], [place] [id number] Feb, Visit for TB skin test Z11.1 and Encounter for immunization Z23 [place] [address] [place] [id number] [place] [address] Oct, Nexplanon insertion V25.5 [place] [address] [place] [address] [id number] [place] [address] Oct, General counseling and advice for contraceptive management V25.09 [place] [address] [id number] [place] [address] 16 Sep, 2014 Routine follow-up V24.2 [place] [address] [place] [id number] [place] [address] Jul, Supervision of other normal V22.1 [place] [address] [address] Jul, [place] [address] [address] Jul, [place] [address] [address] Jun, [facility] [place] [facility] [address] [id number] [place] [address] Jun, [facility] [place] [facility] [address] [id number] [place] [address] Jun, [facility] [place] [facility] [address] [id number] [place] [address] Jun, [facility] [place] [facility] [address] [id number] [place] [address] May, [facility] [place] [facility] [address] [id number] [place] [address] May, [facility] [place] [facility] [address] [id number] [place] [address] May, [facility] [place] [facility] [address] [facility] [id number] [place] [address] May, [facility] [place] [facility] [address] [id number] [place] [address] May, [facility] [place] [facility] [address] [id number] [place] [address] May, [facility] [place] [facility] [address] [facility] [id number] [place] [address] Apr, [facility] [place] [facility] [address] [facility] [id number] [place] [address] Apr, [facility] [place] [facility] [address] [id number], [place] [address] Apr, [facility] [place] [facility] [address] [id number] [place] [address] Apr, [facility] [place] [facility] [address] [id number] [place] [address] Mar, [facility] [place] [facility] [address] [id number] [place] [address] 1932 Mar, [facility] [place] [facility] [address] [id number], [place] [address] Mar, [facility] [place] [facility] [address] [id number] [place] [address]57 Mar, [facility] [place] [facility] [address] [id number] [place] [address] Mar, [facility] [place] [facility] [address] [id number] [place] [address] Mar, [facility] [place] [facility] [address] [id number] [place] [address] Mar, [facility] [place] [facility] [address] [id number] [place] [address] Mar, [facility] [place] [facility] [address] [id number] [place] [address] Mar, [facility] [place] [facility] [address] [id number] [place] [address]- 65[address] Mar, [facility] [place] [facility] [address] [id number] [place] [address]67 Jan, [facility] [place] [facility] [address] [id number] [place] [address]- [address] Jan, [facility] [place] [facility] [address] [id number], [place] [address] Jan, [facility] [place] [facility] [address] [id number], [place] [address] Jan, [facility] [place] [facility] [address] [id number], [place] [address] Jan, [facility] [place] [facility] [address] [id number], [place] [address] Jan, [facility] [place] [facility] [address] [id number], [place] [address] Jan, [facility] [place] [facility] [address] [id number] [place] [address]- [address] Jan, [facility] [place] [facility] [address] [id number] [place] [address]- 1146 02 Jan, 2013 [facility] [place] [facility] [address] [id number] [place] [address]- [address] 02 Jan, 2014 [facility] [place] [facility] [address] [id number] [place] [address]- [address] 23 Dec, 2013 [facility] [place] [facility] [address] [id number] [place] [address]- 1126 23 Sep, 2013 [facility] [place] [facility] [address] [id number] [place] [address]- 1219 16 Sep, 2013 [facility] [place] [facility] [address] [id number] [place] [address]- 7621 16 Dec, 2013 [facility] [place] [facility] [address] [id number] [place] [address]- [address]90 12 Dec, 2013 [facility] [place] [facility] [address] [id number] [place] [address]- [address] 12 Dec, 2013 [facility] [place] [facility] [address] [id number] [place] [address]- [address]35 10 Dec, 2013 [facility] [place] [facility] [address] [id number] [place] [address]- 2549 10 Dec, 2013 [facility] [place] [facility] [address] [id number] [place] [address]- 5067 09 Sep, 2013 [facility] [place] [facility] [address] [id number] [place] [address]- [address]41 08 Sep, 2013 [facility] [place] [facility] [address] [id number] [place] [address]- [address]44 08 Sep, 2013 [facility] [place] [facility] [address] [id number] [place] [address]- [address]43 08 Sep, 2013 [facility] [place] [facility] [address] [id number] [place] [address]- [address]49 08 Sep, 2013 [facility] [place] [facility] [address] [id number] [place] [address]- [address]76 Dec, [facility] [address] [facility] [id number] [place] [address] Dec, [facility] [address] [facility] [id number], [place] [address] Nov, [facility] [address] [facility] [id number], [place] [address] Nov, IMMUNIZATIONS No Known Immunizations SOCIAL HISTORY Never Assessed REASON FOR VISIT Lab (walk-in). 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
--- OUTSIDE RECORDS SUMMARY | 2018-01-16 05:51 | XMS REPORT ---
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 Name Role Phone IGNACIOMICHAELABRIL MARY Unavailable PROBLEMS Type Condition ICD9-CM Code WVI58-[place] Code Onset Dates Condition Status SNOMED Code Problem Encounter for supervision of other normal , second trimester Z34.82 Active 02619570 Problem Obesity complicating , second trimester O99.212 Active 542204747637 Problem Radiation exposure affecting in second trimester O09.892 Active 164207265 Problem Encounter for supervision of other normal , third trimester Z34.83 Active 03630270 Problem Obesity complicating in third trimester O99.213 Active 613210954539 Problem Bilateral carpal tunnel syndrome G56.03 Active 03432325011463435 Problem Interstitial cystitis (chronic) with hematuria N30.11 Active 449010367 Problem Radiation exposure complicating in third trimester O09.893 Active 616405632 Problem Uterine size-date discrepancy in third trimester O26.843 Active 685947250 Problem Pain in left shoulder M25.512 Active 61536144 Problem Pain in right shoulder M25.511 Active 76682817 Problem Low lying placenta NOS or without hemorrhage, second trimester O44.42 Active 018465328 Problem Chronic GERD K21.9 Active 219225414 Problem PCOS (polycystic ovarian syndrome) E28.2 Active 50307768 Problem Other chronic pain G89.29 Active 22276024 Problem Family history of other congenital malformations, deformations and chromosomal abnormalities Z82.79 Active 960085309 Problem Obesity (BMI 30.0-34.9) E66.9 Active 542778144527806 Problem Cardiac murmur, unspecified R01.1 Active 21319893 ALLERGIES No Information ENCOUNTERS Encounter Location Date Diagnosis [address] [id number] [place] [id number] Nov, [address] [id number] [id number] Nov, Encounter for supervision of other normal , third trimester Z34.83 ; Obesity complicating in third trimester O99.213 ; Radiation exposure complicating in third trimester O09.893 ; Uterine size-date discrepancy in third trimester O26.843 ; Other chronic pain G89.29 and Bilateral carpal tunnel syndrome G56.03 [facility] ERNST [employer] [place] [address] AVE [id number][place] [id number] Nov, Encounter for supervision of other normal , third trimester Z34.83 ; Obesity complicating in third trimester O99.213 ; Bilateral carpal tunnel syndrome G56.03 ; Uterine size-date discrepancy in third trimester O26.843 ; Radiation exposure complicating in third trimester O09.893 ; Encounter for immunization Z23 and Other chronic pain G89.[address] [id number][place] [id number] Oct, Encounter for supervision of other normal , second trimester Z34.82 ; Radiation exposure affecting in second trimester O09.892 ; Obesity complicating , second trimester O99.212 ; Cardiac murmur, unspecified R01.1 ; Interstitial cystitis (chronic) with hematuria N30.11 ; Chronic GERD K21.9 ; Bilateral carpal tunnel syndrome G56.03 and Uterine size- date discrepancy in third trimester O26.[address] [id number] [id number] Oct, Chronic GERD K21.9 [facility] [address] [id number][place] [id number] Oct, Encounter for supervision of other normal , second trimester Z34.[address] [id number] [place] [id number] Oct, Low lying placenta NOS or without hemorrhage, second trimester O44.42 [facility] [address] [id number][place] [address] Sep, Encounter for supervision of other normal , second trimester Z34.82 ; Radiation exposure affecting in second trimester O09.892 ; Low lying placenta NOS or without hemorrhage, second trimester O44.42 ; Cellulitis of left upper extremity L03.114 and Cellulitis of left finger L03.012 [facility] [address] [id number][place] [id number] Sep, Encounter for supervision of other normal , second trimester Z34.82 ; Interstitial cystitis (chronic) with hematuria N30.11 ; Obesity complicating , second trimester O99.212 ; Radiation exposure affecting in second trimester O09.892 and Low lying placenta NOS or without hemorrhage, second trimester O44.42 [facility] [address] [id number] [place] [address] Sep, Dysuria R30.0 [facility] [address] [id number][place] [address] Sep, Dysuria R30.0 and Other specified related conditions, second trimester O26.892 [facility] [address] [id number][place] [id number] August, [facility] [address] [id number][place] [id number] August, Encounter for supervision of other normal , second trimester Z34.82 ; Obesity complicating , second trimester O99.212 ; Radiation exposure affecting in second trimester O09.892 ; Chronic GERD K21.9 ; Family history of other congenital malformations, deformations and chromosomal abnormalities Z82.79 and Cardiac murmur, unspecified R01.1 [facility] [address] [id number], [place] [id number] Jul, Encounter for supervision of other normal , first trimester Z34.81 ; Obesity complicating , first trimester O99.211 and Radiation exposure affecting in first trimester O09.891 [facility] [address] [id number][place] [id number] Jul, Urinary tract infection N39.0 and UTI (urinary tract infection) in in first trimester O23.[address] [id number], [place] [id number] Jun, Encounter for supervision of other normal , first trimester Z34.[address] [id number][place] [address] Jun, Encounter for supervision of other normal , first trimester Z34.81 ; Radiation exposure affecting in first trimester O09.891 ; Family history of other congenital malformations, deformations and chromosomal abnormalities Z82.79 ; Cardiac murmur, unspecified R01.1 and Obesity complicating in first trimester O99.211 [facility] [address] [id number], [place] [id number] May, Positive test Z32.01 [facility] [address] [id number], [place] [id number] May, Less than 8 weeks gestation of Z3A.01 [facility] [address] [id number], [place] [address] May, [facility] [address] [place] [address] AVE [id number], [place] [id number] May, PCOS (polycystic ovarian syndrome) E28.2 [facility] [address] [id number], [place] [id number] May, PCOS (polycystic ovarian syndrome) E28.2 [facility] [employer] [place] [address] AVE [id number], [place] [id number] May, PCOS (polycystic ovarian syndrome) E28.2 [facility] [address] [id number], [place] [id number] Apr, [facility] [address] [id number], [place] [id number] Apr, [facility] [address] [id number], [place] [id number] Apr, Obesity (BMI 30.0-34.9) E66.9 ; Cardiac murmur, previously undiagnosed R01.1 ; Chronic GERD K21.9 ; Other chronic pain G89.29 ; Pain in left shoulder M25.512 ; Pain in right shoulder M25.511 ; History of abnormal cervical Pap smear Z87.898 and Encounter to establish care Z76.89 [place] [facility] [id number][place] [id number] 08 Apr, 2017 Encounter for Nexplanon removal Z30.[address] [id number], [place] [address] 03 Feb, 2017 Visit for TB skin test Z11.1 and Encounter for immunization Z23 [facility] [id number] [place] [address] 30 Oct, 2014 Nexplanon insertion V25.5 [place] [id number] [place] [address] 14 Oct, 2014 General counseling and advice for contraceptive management V25.09 [place] [id number] [place] [address] 0[address] 16 Sep, 2014 Routine follow-up V24.2 [place] [id number] [place] [address]78- 2258 28 Jul, 2014 Supervision of other normal V22.1 [place] [id number] [place] [address] 3197 14 Jul, 2014 [place] [id number] [place] [address] Jul, [facility] [id number] [place] [address] 0[address] Jun, [facility] [id number] [place] [address]82 Jun, [place] [id number] [place] [address] 8[address] Jun, [facility] [id number] [place] [address] Jun, [place] [address] [id number] [place] [address] 18 May, 2014 [facility] [place] [facility] [address] [id number] [place] [address] May, 2014 [facility] [place] [facility] [address] [id number] [place] [address] May, 2014 [facility] [place] [facility] [address] [id number] [place] [address] May, 2014 [facility] [place] [facility] [address] [id number] [place] [address] May, 2014 [facility] [place] [facility] [address] [id number] [place] [address] May, 2014 [facility] [place] [facility] [address] [facility] [id number] [place] [address] Apr, [facility] [place] [facility] [address] [facility] [id number] [place] [address] Apr, [facility] [place] [facility] [address] [facility] [id number] [place] [address] Apr, [facility] [place] [facility] [address] [facility] [id number] [place] [address] 7183 Apr, [facility] [place] [facility] [address] [facility] [id number] [place] [address] Mar, [facility] [place] [facility] [address] [id number] [place] [address] 30 Mar, 2014 [facility] [place] [facility] [address] [id number] [place] [address] 44[address] Mar, [facility] [place] [facility] [address] [id number] [place] [address] 6753 Mar, [facility] [place] [facility] [address] [id number] [place] [address] 4947 Mar, [facility] [place] [facility] [address] [id number][place] Mar, [facility] [place] [facility] [address] [id number] [place] [address] 9575 Mar, [facility] [place] [facility] [address] [id number] [place] [address] Mar, [facility] [place] [facility] [address] [id number] [place] [address]- 6672 Mar, [facility] [place] [facility] [address] [id number] [place] [address] Mar, [facility] [place] [facility] [address] [id number] [place] [address]- 8877 Jan, [facility] [place] [facility] [address] [id number] [place] [address]- 0194 Jan, [facility] [place] [facility] [address] [id number] [place] [address]- 6908 Jan, [facility] [place] [facility] [address] [id number], [place] [address]92 Jan, [facility] [place] [facility] [address] [id number], [place] [address]32 Jan, [facility] [place] [facility] [address] [id number], [place] [address]073 Jan, [facility] [place] [facility] [address] [id number], [place] [address]- 9807 Jan, [facility] [place] [facility] [address] [id number], [place] [address]- 3533 Jan, [facility] [place] [facility] [address] [id number], [place] [address]- 4034 Jan, [facility] [place] [facility] [address] [id number], [place] [address] Jan, [facility] [place] [facility] [address] [id number] [place] [address]- 4255 Dec, [facility] [place] [facility] [address] [id number] [place] [address]- 8339 23 Sep, 2013 [facility] [place] [facility] [address] [id number] [place] [address] 2546 16 Sep, 2013 [facility] [place] [facility] [address] [id number] [place] [address] 2546 16 Dec, 2013 [facility] [place] [facility] [address] [id number] [place] [address] 2546 12 Dec, 2013 [facility] [place] [facility] [address] [id number] [place] [address]- 2546 12 Dec, 2013 [facility] [place] [facility] [address] [id number] [place] [address] 2546 10 Dec, 2013 [facility] [place] [facility] [address] [id number] [place] [address]- 2548 10 Dec, 2013 [facility] [place] [facility] [address] [id number] [place] [address]- 2540 09 Dec, 2013 [facility] [place] [facility] [address] [id number] [place] [address]- 254 08 Dec, 2013 [facility] [place] [facility] [address] [id number] [place] [address] 2540 08 Dec, 2013 [facility] [place] [facility] [address] [id number] [place] [address]- 2542 08 Dec, 2013 [facility] [place] [facility] [address] [id number] [place] [address] 2540 08 Dec, 2013 [facility] [place] [facility] [address] [id number] [place] [address] 2546 04 Dec, 2013 [facility] [place] [facility] [address] [id number] [place] [address] 2546 Dec, 2013 [facility] [place] [facility] [address] [id number] [place] [address]- [address]40 Nov, [facility] [place] [facility] [address] [id number] [place] [address] 3549 Nov, IMMUNIZATIONS No Known Immunizations SOCIAL HISTORY Never Assessed REASON FOR VISIT Continued UTI Symptoms PLAN OF CARE Activity Details Pending Test CULTURE, URINE VITAL SIGNS MEDICATIONS Medication Instructions Dosage Frequency Start Date End Date Duration Status Pyridium 200 mg Orally Three times a day 1 tablet after meals 8h Sep, Sep, 03 days Active RESULTS No Results PROCEDURES Procedure Date Ordered Result Body Site URINE CULTURE/COLONY COUNT September 09, 2017 INSTRUCTIONS MEDICATIONS ADMINISTERED No Known Medications MEDICAL (GENERAL) HISTORY Type Description Date Medical 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
--- OUTSIDE RECORDS SUMMARY | 2018-01-16 05:51 | XMS REPORT ---
Author Author MARY CHAVEZ [facility] Address [address] [place] [address] Care Team Providers Care Manager Patient Name Role Phone IGNACIOMICHAELABRIL MARY Unavailable PROBLEMS Type Condition ICD9-CM Code UVJ63-RD Code Onset Dates Condition Status SNOMED Code Problem Encounter for supervision of other normal , second trimester Z34.82 Active 07903179 Problem Obesity complicating , second trimester O99.212 Active 800039760414 Problem Radiation exposure affecting in second trimester O09.892 Active 881448833 Problem Encounter for supervision of other normal , third trimester Z34.83 Active 68778031 Problem Obesity complicating in third trimester O99.213 Active 017538367630 Problem Bilateral carpal tunnel syndrome G56.03 Active [id number] Problem Interstitial cystitis (chronic) with hematuria N30.11 Active 325783944 Problem Radiation exposure complicating in third trimester O09.893 Active 526248151 Problem Uterine size-date discrepancy in third trimester O26.843 Active 110565353 Problem Pain in left shoulder M25.512 Active 88856119 Problem Pain in right shoulder M25.511 Active 07498742 Problem Low lying placenta NOS or without hemorrhage, second trimester O44.42 Active 818039592 Problem Chronic GERD K21.9 Active 686166184 Problem PCOS (polycystic ovarian syndrome) E28.2 Active 63321821 Problem Other chronic pain G89.29 Active 06698594 Problem Family history of other congenital malformations, deformations and chromosomal abnormalities Z82.79 Active 760420992 Problem Obesity (BMI 30.0-34.9) E66.9 Active 793099358634786 Problem Cardiac murmur, unspecified R01.1 Active 99565503 ALLERGIES No Information ENCOUNTERS Encounter Location Date Diagnosis [address] [id number] [place] [id number] Nov, [address] [id number][place] [id number] Nov, Encounter for supervision of other normal , third trimester Z34.83 ; Obesity complicating in third trimester O99.213 ; Radiation exposure complicating in third trimester O09.893 ; Uterine size-date discrepancy in third trimester O26.843 ; Other chronic pain G89.29 and Bilateral carpal tunnel syndrome G56.03 [facility] [address] [place] [address] AVE [id number], [place] [id number] Nov, Encounter for supervision of other normal , third trimester Z34.83 ; Obesity complicating in third trimester O99.213 ; Bilateral carpal tunnel syndrome G56.03 ; Uterine size-date discrepancy in third trimester O26.843 ; Radiation exposure complicating in third trimester O09.893 ; Encounter for immunization Z23 and Other chronic pain G89.[address] [id number][place] [id number] Oct, Encounter for supervision of other normal , second trimester Z34.82 ; Radiation exposure affecting in second trimester O09.892 ; Obesity complicating , second trimester O99.212 ; Cardiac murmur, unspecified R01.1 ; Interstitial cystitis (chronic) with hematuria N30.11 ; Chronic GERD K21.9 ; Bilateral carpal tunnel syndrome G56.03 and Uterine size- date discrepancy in third trimester O26.[address] [id number][place] [id number] Oct, Chronic GERD K21.9 [facility] [address] [id number][place] [address] Oct, Encounter for supervision of other normal , second trimester Z34.[id number] [place] [id number] Oct, Low lying placenta NOS or without hemorrhage, second trimester O44.42 [facility] [address] [id number][place] [id number] Sep, Encounter for supervision of other normal , second trimester Z34.82 ; Radiation exposure affecting in second trimester O09.892 ; Low lying placenta NOS or without hemorrhage, second trimester O44.42 ; Cellulitis of left upper extremity L03.114 and Cellulitis of left finger L03.012 [facility] [address] [id number][place] [address] Sep, Encounter for supervision of other normal , second trimester Z34.82 ; Interstitial cystitis (chronic) with hematuria N30.11 ; Obesity complicating , second trimester O99.212 ; Radiation exposure affecting in second trimester O09.892 and Low lying placenta NOS or without hemorrhage, second trimester O44.42 [facility] [address] [id number] [place] [address] Sep, Dysuria R30.0 [facility] [address] [id number][place] [id number] Sep, Dysuria R30.0 and Other specified related conditions, second trimester O26.892 [facility] [address] [id number], [place] [id number] August, [facility] [address] [id number][place] [id number] August, Encounter for supervision of other normal , second trimester Z34.82 ; Obesity complicating , second trimester O99.212 ; Radiation exposure affecting in second trimester O09.892 ; Chronic GERD K21.9 ; Family history of other congenital malformations, deformations and chromosomal abnormalities Z82.79 and Cardiac murmur, unspecified R01.1 [facility] [address] [id number][place] [id number] Jul, Encounter for supervision of other normal , first trimester Z34.81 ; Obesity complicating , first trimester O99.211 and Radiation exposure affecting in first trimester O09.[address] [address] [id number][place] [address] Jul, Urinary tract infection N39.0 and UTI (urinary tract infection) in in first trimester O23.[address] [id number], [place] [id number] Jun, Encounter for supervision of other normal , first trimester Z34.[address] [id number], [place] [address] Jun, Encounter for supervision of other normal , first trimester Z34.81 ; Radiation exposure affecting in first trimester O09.891 ; Family history of other congenital malformations, deformations and chromosomal abnormalities Z82.79 ; Cardiac murmur, unspecified R01.1 and Obesity complicating in first trimester O99.211 [facility] [address] [id number], [place] [address] May, Positive test Z32.01 [facility] [address] [id number], [place] [id number] May, Less than 8 weeks gestation of Z3A.01 [facility] [address] [id number], [place] [id number] May, [facility] [address] [place] [address] AVE [id number], [place] [id number] May, PCOS (polycystic ovarian syndrome) E28.2 [facility] [address] [id number][place] [id number] May, PCOS (polycystic ovarian syndrome) E28.2 [facility] [address] [place] [address] AVE [id number], [place] [address] May, PCOS (polycystic ovarian syndrome) E28.2 [facility] [address] [id number], [place] [address] Apr, [facility] [address] [id number], [place] [id number] Apr, [facility] [address] [id number], [place] [address] Apr, Obesity (BMI 30.0-34.9) E66.9 ; Cardiac murmur, previously undiagnosed R01.1 ; Chronic GERD K21.9 ; Other chronic pain G89.29 ; Pain in left shoulder M25.512 ; Pain in right shoulder M25.511 ; History of abnormal cervical Pap smear Z87.898 and Encounter to establish care Z76.89 [place] [id number] [facility] [id number], [place] [id number] 08 Apr, 2017 Encounter for Nexplanon removal Z30.[address] [id number], [place] [id number] 03 Feb, 2017 Visit for TB skin test Z11.1 and Encounter for immunization Z23 [facility] [id number] [place] [address] 30 Oct, 2014 Nexplanon insertion V25.5 [place] [id number] [place] [address] 7[address] 14 Oct, 2014 General counseling and advice for contraceptive management V25.09 [place] [id number] [place] [address]- 4631 16 Sep, 2014 Routine follow-up V24.2 [place] [id number] [place] [address]- [address]79 28 Jul, 2014 Supervision of other normal V22.1 [place] [id number] [place] [address]887- 1732 14 Jul, 2014 [place] [id number] [place] [address]178- 6582 Jul, [facility] [id number] [place] [address]- 4842 Jun, [facility] [id number] [place] [address]2810- 5756 Jun, [place] [id number] [place] [address] 16191- 5437 Jun, [facility] [id number] [place] [address]18- 4475 Jun, [place] [address] [id number] [place] [address] 18 May, 2014 [facility] [place] [facility] [address] [id number] [place] [address] May, 2014 [facility] [place] [facility] [address] [id number] [place] [address]74 May, 2014 [facility] [place] [facility] [address] [id number] [place] [address] May, 2014 [facility] [place] [facility] [address] [id number] [place] [address] 89[address] May, 2014 [facility] [place] [facility] [address] [id number] [place] [address] May, 2014 [facility] [place] [facility] [address] [facility] [facility] [id number] [place] [address] Apr, [facility] [place] [facility] [address] [facility] [address] [facility] [id number] [place] [address]852 Apr, [facility] [place] [facility] [address] [facility] [address] [facility] [id number] [place] [address] 1466 Apr, [facility] [place] [facility] [address] [facility] [address] [facility] [id number] [place] [address] Apr, [facility] [place] [facility] [address] [facility] [address] [facility] [id number] [place] [address] Mar, [facility] [place] [facility] [address] [id number] [place] [address] 30 Mar, 2014 [facility] [place] [facility] [address] [id number] [place] [address]01 Mar, [facility] [place] [facility] [address] [id number] [place] [address]- 1835 Mar, [facility] [place] [facility] [address] [id number] [place] [address]- 3428 Mar, [facility] [place] [facility] [address] [id number] [address]- [address] Mar, [facility] [place] [facility] [address] [id number] [place] [address]- 0973 Mar, [facility] [place] [facility] [address] [id number] [place] [address] Mar, [facility] [place] [facility] [address] [id number] [place] [address] 6530 Mar, [facility] [place] [facility] [address] [id number] [place] [address] Mar, [facility] [place] [facility] [address] [id number] [place] [address]- 0104 Jan, [facility] [place] [facility] [address] [id number] [place] [address]- 2309 Jan, [facility] [place] [facility] [address] [id number] [place] [address]- 5598 Jan, [facility] [place] [facility] [address] [id number] [address]- 8319 Jan, [facility] [place] [facility] [address] [id number] [address]- 9283 Jan, [facility] [place] [facility] [address] [id number] [place] [address] 8927 Jan, [facility] [place] [facility] [address] [id number] [address]- 0104 Jan, [facility] [place] [facility] [address] [id number] [place] [address]- 2870 Jan, [facility] [place] [facility] [address] [id number] [place] [address]- 1133 Jan, [facility] [place] [facility] [address] [id number] [place] [address]- 0254 Jan, [facility] [place] [facility] [address] [id number] [place] [address]- 1788 Dec, [facility] [place] [facility] [address] [id number] [place] [address]- 0080 23 Sep, 2013 [facility] [place] [facility] [address] [id number] [place] [address] 2546 16 Sep, 2013 [facility] [place] [facility] [address] [id number] [place] [address] 2546 16 Dec, 2013 [facility] [place] [facility] [address] [id number] [place] [address] 2546 12 Dec, 2013 [facility] [place] [facility] [address] [id number] [place] [address]- 2546 12 Dec, 2013 [facility] [place] [facility] [address] [id number] [place] [address] 2546 10 Dec, 2013 [facility] [place] [facility] [address] [id number] [place] [address]- 2547 10 Dec, 2013 [facility] [place] [facility] [address] [id number] [place] [address]- 2542 09 Dec, 2013 [facility] [place] [facility] [address] [id number] [place] [address]- 2540 08 Dec, 2013 [facility] [place] [facility] [address] [id number] [place] [address] 254 08 Dec, 2013 [facility] [place] [facility] [address] [id number] [place] [address]- 2541 08 Dec, 2013 [facility] [place] [facility] [address] [id number] [place] [address] 2542 08 Dec, 2013 [facility] [place] [facility] [address] [id number] [place] [address] 2546 04 Dec, 2013 [facility] [place] [facility] [address] [id number] [place] [address] 2546 Dec, 2013 [facility] [place] [facility] [address] [id number] [place] [address]- [address]45 Nov, [facility] [place] [facility] [address] [id number] [place] [address]- 156 Nov, IMMUNIZATIONS No Known Immunizations SOCIAL HISTORY Never Assessed REASON FOR VISIT Medication PLAN OF CARE VITAL SIGNS MEDICATIONS Medication Instructions Dosage Frequency Start Date End Date Duration Status Macrobid 100 MG Orally every 12 hrs 1 capsule with food 12h August, Sep, 7 day(s) Active RESULTS No Results PROCEDURES No Known procedures INSTRUCTIONS MEDICATIONS ADMINISTERED No Known Medications MEDICAL (GENERAL) HISTORY Type Description Date Medical 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
--- OUTSIDE RECORDS SUMMARY | 2018-01-16 05:51 | XMS REPORT ---
Author Author MARY CHAVEZ [facility] Address [address] [place] [address] Care Team Providers Care Project Controls Specialist Name Role Phone IGNACIOMICHAELABRIL MARY Unavailable PROBLEMS Type Condition ICD9-CM Code AOU41-PI Code Onset Dates Condition Status SNOMED Code Problem Encounter for supervision of other normal , second trimester Z34.82 Active 83083883 Problem Obesity complicating , second trimester O99.212 Active 641578591840 Problem Radiation exposure affecting in second trimester O09.892 Active 533690406 Problem Encounter for supervision of other normal , third trimester Z34.83 Active 97804428 Problem Obesity complicating in third trimester O99.213 Active 301773542942 Problem Bilateral carpal tunnel syndrome G56.03 Active 46840895646276228 Problem Interstitial cystitis (chronic) with hematuria N30.11 Active 843135485 Problem Radiation exposure complicating in third trimester O09.893 Active 824926689 Problem Uterine size-date discrepancy in third trimester O26.843 Active 068819864 Problem Pain in left shoulder M25.512 Active 43786602 Problem Pain in right shoulder M25.511 Active 16121020 Problem Low lying placenta NOS or without hemorrhage, second trimester O44.42 Active 188657148 Problem Chronic GERD K21.9 Active 055480413 Problem PCOS (polycystic ovarian syndrome) E28.2 Active 72345722 Problem Other chronic pain G89.29 Active 21929286 Problem Family history of other congenital malformations, deformations and chromosomal abnormalities Z82.79 Active 706103887 Problem Obesity (BMI 30.0-34.9) E66.9 Active 154262238988158 Problem Cardiac murmur, unspecified R01.1 Active 54884501 ALLERGIES No Information ENCOUNTERS Encounter Location Date Diagnosis [address] [id number] [place] [id number] Nov, [address] [id number] [id number] Nov, Encounter for supervision of other normal , third trimester Z34.83 ; Obesity complicating in third trimester O99.213 ; Radiation exposure complicating in third trimester O09.893 ; Uterine size-date discrepancy in third trimester O26.843 ; Other chronic pain G89.29 and Bilateral carpal tunnel syndrome G56.03 [facility] [employer] [place] [address] AVE [id number], [place] [id number] Nov, Encounter for supervision of other normal , third trimester Z34.83 ; Obesity complicating in third trimester O99.213 ; Bilateral carpal tunnel syndrome G56.03 ; Uterine size-date discrepancy in third trimester O26.843 ; Radiation exposure complicating in third trimester O09.893 ; Encounter for immunization Z23 and Other chronic pain G89.[address] [id number][place] [id number] Oct, Encounter for supervision of other normal , second trimester Z34.82 ; Radiation exposure affecting in second trimester O09.892 ; Obesity complicating , second trimester O99.212 ; Cardiac murmur, unspecified R01.1 ; Interstitial cystitis (chronic) with hematuria N30.11 ; Chronic GERD K21.9 ; Bilateral carpal tunnel syndrome G56.03 and Uterine size- date discrepancy in third trimester O26.[address] [id number][place] [id number] Oct, Chronic GERD K21.9 [facility] [employer] [address] [id number][place] [id number] Oct, Encounter for supervision of other normal , second trimester Z34.[address] [id number] [place] [id number] Oct, Low lying placenta NOS or without hemorrhage, second trimester O44.[address] [facility] [address] [id number][place] [id number] Sep, Encounter for supervision of other normal , second trimester Z34.82 ; Radiation exposure affecting in second trimester O09.892 ; Low lying placenta NOS or without hemorrhage, second trimester O44.42 ; Cellulitis of left upper extremity L03.114 and Cellulitis of left finger L03.012 [facility] [employer] [address] [id number][place] [id number] Sep, Encounter for supervision of other normal , second trimester Z34.82 ; Interstitial cystitis (chronic) with hematuria N30.11 ; Obesity complicating , second trimester O99.212 ; Radiation exposure affecting in second trimester O09.892 and Low lying placenta NOS or without hemorrhage, second trimester O44.42 [facility] [address] [id number] [place] [address] Sep, Dysuria R30.[address] [facility] [employer] [id number][place] [id number] Sep, Dysuria R30.0 and Other specified related conditions, second trimester O26.892 [facility] [employer] [address] [id number], [place] [id number] August, [facility] [employer] [address] [id number], [place] [id number] August, Encounter for supervision of other normal , second trimester Z34.82 ; Obesity complicating , second trimester O99.212 ; Radiation exposure affecting in second trimester O09.892 ; Chronic GERD K21.9 ; Family history of other congenital malformations, deformations and chromosomal abnormalities Z82.79 and Cardiac murmur, unspecified R01.1 [facility] [employer] [address] [id number][place] [id number] Jul, Encounter for supervision of other normal , first trimester Z34.81 ; Obesity complicating , first trimester O99.211 and Radiation exposure affecting in first trimester O09.891 [facility] [address] [address] [id number], [place] [id number] Jul, Urinary tract infection N39.0 and UTI (urinary tract infection) in in first trimester O23.[address] [id number], [place] [id number] Jun, Encounter for supervision of other normal , first trimester Z34.[address] [id number], [place] [address] Jun, Encounter for supervision of other normal , first trimester Z34.81 ; Radiation exposure affecting in first trimester O09.891 ; Family history of other congenital malformations, deformations and chromosomal abnormalities Z82.79 ; Cardiac murmur, unspecified R01.1 and Obesity complicating in first trimester O99.211 [facility] [address] [id number], [place] [id number] May, Positive test Z32.01 [facility] [address] [id number], [place] [address] May, Less than 8 weeks gestation of Z3A.01 [facility] [address] [id number], [place] [id number] May, [facility] [address] [place] [address] AVE [id number], [place] [id number] May, PCOS (polycystic ovarian syndrome) E28.2 [facility] [address] [id number], [place] [id number] May, PCOS (polycystic ovarian syndrome) E28.2 [facility] [employer] [place] [address] AVE [id number], [place] [id number] May, PCOS (polycystic ovarian syndrome) E28.2 [facility] [address] [id number], [place] [id number] Apr, [facility] [address] [id number], [place] [address] Apr, [facility] [address] [id number], [place] [id number] Apr, Obesity (BMI 30.0-34.9) E66.9 ; Cardiac murmur, previously undiagnosed R01.1 ; Chronic GERD K21.9 ; Other chronic pain G89.29 ; Pain in left shoulder M25.512 ; Pain in right shoulder M25.511 ; History of abnormal cervical Pap smear Z87.898 and Encounter to establish care Z76.89 [place] [address] [facility] [id number][place] [id number] 08 Apr, 2017 Encounter for Nexplanon removal Z30.[address] [id number], [place] [address] 03 Feb, 2017 Visit for TB skin test Z11.1 and Encounter for immunization Z23 [facility] [place] [id number] [place] [address] 30 Oct, 2014 Nexplanon insertion V25.5 [place] [id number] [place] [address] 14 Oct, 2014 General counseling and advice for contraceptive management V25.09 [place] [id number] [place] [address]- [address]25 16 Sep, 2014 Routine follow-up V24.2 [place] [id number] [place] [address] 5500 28 Jul, 2014 Supervision of other normal V22.1 [place] [id number] [place] [address]57[address] 9240 14 Jul, 2014 [place] [id number] [place] [address] Jul, [facility] [place] [id number] [place] [address] Jun, [facility] [place] [id number] [place] [address]25 Jun, [place] [id number] [place] [address] 4382 Jun, [facility] [id number] [place] [address] Jun, [place] [address] [id number] [place] [address] 18 May, 2014 [facility] [place] [facility] [address] [id number] [place] [address] May, 2014 [facility] [place] [facility] [address] [id number] [place] [address] May, 2014 [facility] [place] [facility] [address] [id number] [place] [address] May, 2014 [facility] [place] [facility] [address] [id number] [place] [address] May, 2014 [facility] [place] [facility] [address] [id number] [place] [address] May, 2014 [facility] [place] [facility] [address] [facility] [id number] [place] [address]- [address] Apr, [facility] [place] [facility] [address] [facility] [id number] [place] [address] Apr, [facility] [place] [facility] [address] [facility] [id number] [place] [address]- [address] Apr, [facility] [place] [facility] [address] [facility] [id number] [place] [address] Apr, [facility] [place] [facility] [address] [facility] [id number] [place] [address] Mar, [facility] [place] [facility] [address] [id number] [place] [address]- [address]23 30 Mar, 2014 [facility] [place] [facility] [address] [id number] [place] [address]- 0985 Mar, [facility] [place] [facility] [address] [id number] [place] [address]- 0788 Mar, [facility] [place] [facility] [address] [id number] [place] [address] 4912 Mar, [facility] [place] [facility] [address] [id number][place] [address] Mar, [facility] [place] [facility] [address] [id number] [place] [address]- 2067 Mar, [facility] [place] [facility] [address] [id number] [place] [address] Mar, [facility] [place] [facility] [address] [id number] [place] [address]- 1105 Mar, [facility] [place] [facility] [address] [id number] [place]- [address]771 Mar, [facility] [place] [facility] [address] [id number] [place] [address]- 2082 Jan, [facility] [place] [facility] [address] [id number] [place] [address]- 3465 Jan, [facility] [place] [facility] [address] [id number] [place] [address]- 1574 Jan, [facility] [place] [facility] [address] [id number], [place] [address] Jan, [facility] [place] [facility] [address] [id number], [place] [address]- [address]45 Jan, [facility] [place] [facility] [address] [id number][place] [address]- 0642 Jan, [facility] [place] [facility] [address] [id number] [address]- 4748 Jan, [facility] [place] [facility] [address] [id number], [place] [address]- 3908 Jan, [facility] [place] [facility] [address] [id number], [place] [address]- 9829 Jan, [facility] [place] [facility] [address] [id number], [place] [address]- 8314 Jan, [facility] [place] [facility] [address] [id number] [place] [address]- 2689 Dec, [facility] [place] [facility] [address] [id number] [place] [address]- 3560 23 Sep, 2013 [facility] [place] [facility] [address] [id number] [place] [address] 2546 16 Sep, 2013 [facility] [place] [facility] [address] [id number] [place] [address] 2546 16 Dec, 2013 [facility] [place] [facility] [address] [id number] [place] [address] 2546 12 Dec, 2013 [facility] [place] [facility] [address] [id number] [place] [address]- 2546 12 Dec, 2013 [facility] [place] [facility] [address] [id number] [place] [address] 2546 10 Dec, 2013 [facility] [place] [facility] [address] [id number] [place] [address]- 2542 10 Dec, 2013 [facility] [place] [facility] [address] [id number] [place] [address]- 2544 09 Dec, 2013 [facility] [place] [facility] [address] [id number] [place] [address]- 2543 08 Dec, 2013 [facility] [place] [facility] [address] [id number] [place] [address] 2544 08 Dec, 2013 [facility] [place] [facility] [address] [id number] [place] [address]- 2542 08 Dec, 2013 [facility] [place] [facility] [address] [id number] [place] [address] 2547 08 Dec, 2013 [facility] [place] [facility] [address] [id number] [place] [address] 2546 04 Dec, 2013 [facility] [place] [facility] [address] [id number] [place] [address] 2546 Dec, [address] [facility] [place] [facility] [address] [id number] [place] [address]- [address] Nov, [facility] [place] [facility] [address] [id number] [place] [address]- 2542 Nov, IMMUNIZATIONS Vaccine Route Administration Date Status ROCEPHIN 1 GM (IM) IM Intramuscular September 09, 2017 Administered SOCIAL HISTORY Never Assessed REASON FOR VISIT Lab-Theresa,RN PLAN OF CARE VITAL SIGNS MEDICATIONS Unknown Medications RESULTS No Results PROCEDURES Procedure Date Ordered Result Body Site URINALYSIS, AUTO, W/O SCOPE September 09, 2017 URINE CULTURE/COLONY COUNT September 09, 2017 THER/PROPH/DIAG INJ, SC/IM September 09, 2017 ROCEPHIN 1 GM (IM) September 09, 2017 INSTRUCTIONS MEDICATIONS ADMINISTERED No Known Medications MEDICAL (GENERAL) HISTORY Type Description Date Medical 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
--- OUTSIDE RECORDS SUMMARY | 2018-01-16 05:52 | XMS REPORT ---
Author Author MARY CHAVEZ [facility] Address [address] [place] [address] Care Team Providers Care Padder Cushion Name Role Phone SCOTT MARY Unavailable PROBLEMS Type Condition ICD9-CM Code URP20-QI Code Onset Dates Condition Status SNOMED Code Problem PCOS (polycystic ovarian syndrome) E28.2 Active 53226939 Problem Family history of other congenital malformations, deformations and chromosomal abnormalities Z82.79 Active 979949790 Problem Cardiac murmur, unspecified R01.1 Active 60410414 Problem Uterine size-date discrepancy in third trimester O26.843 Active 392361069 Problem Bilateral carpal tunnel syndrome G56.03 Active [id number] Problem Encounter for supervision of other normal , second trimester Z34.82 Active 10507780 Problem Radiation exposure affecting in second trimester O09.892 Active 776143730 Problem Interstitial cystitis (chronic) with hematuria N30.11 Active 540451569 Problem Obesity complicating , second trimester O99.212 Active 663270176679 Problem Pain in right shoulder M25.511 Active 45836313 Problem Other chronic pain G89.29 Active 79466850 Problem Low lying placenta NOS or without hemorrhage, second trimester O44.42 Active 061353749 Problem Obesity (BMI 30.0-34.9) E66.9 Active 553951968757534 Problem Pain in left shoulder M25.512 Active 53765075 Problem Chronic GERD K21.9 Active 006762828 ALLERGIES No Known Allergies ENCOUNTERS Encounter Location Date Diagnosis [facility] [address] [facility] [id number] [id number] Nov, [facility] [address] [id number] [place] [id number] Nov, [facility] [address] [facility] [id number] [place] [address] Oct, Encounter for supervision of other normal , second trimester Z34.82 ; Radiation exposure affecting in second trimester O09.892 ; Obesity complicating , second trimester O99.212 ; Cardiac murmur, unspecified R01.1 ; Interstitial cystitis (chronic) with hematuria N30.11 ; Chronic GERD K21.9 ; Bilateral carpal tunnel syndrome G56.03 and Uterine size- date discrepancy in third trimester O26.843 [facility] [address] [facility] [id number] [id number] Oct, Chronic GERD K21.[address] [id number][place] [address] Oct, Encounter for supervision of other normal , second trimester Z34.82 [facility] [address] [facility] [id number][place] [address] Oct, Low lying placenta NOS or without hemorrhage, second trimester O44.[address] [id number][place] [address] Sep, Encounter for supervision of other normal , second trimester Z34.82 ; Radiation exposure affecting in second trimester O09.892 ; Low lying placenta NOS or without hemorrhage, second trimester O44.42 ; Cellulitis of left upper extremity L03.114 and Cellulitis of left finger L03.[address] [id number] [place] [address] Sep, Encounter for supervision of other normal , second trimester Z34.82 ; Interstitial cystitis (chronic) with hematuria N30.11 ; Obesity complicating , second trimester O99.212 ; Radiation exposure affecting in second trimester O09.892 and Low lying placenta NOS or without hemorrhage, second trimester O44.42 [facility] [address] [id number], [place] [address] Sep, Dysuria R30.0 [facility] [address] [id number] [place] [address] Sep, Dysuria R30.0 and Other specified related conditions, second trimester O26.[address] [id number] [place] [id number] August, [facility] [address] [id number][place] [address] August, Encounter for supervision of other normal , second trimester Z34.82 ; Obesity complicating , second trimester O99.212 ; Radiation exposure affecting in second trimester O09.892 ; Chronic GERD K21.9 ; Family history of other congenital malformations, deformations and chromosomal abnormalities Z82.79 and Cardiac murmur, unspecified R01.1 [facility] [address] [id number][place] [id number] Jul, Encounter for supervision of other normal , first trimester Z34.81 ; Obesity complicating , first trimester O99.211 and Radiation exposure affecting in first trimester O09.891 [facility] [address] [place] [address] AVE [id number], [place] [id number] Jul, Urinary tract infection N39.0 and UTI (urinary tract infection) in in first trimester O23.41 [facility] [address] [place] [address] [id number], [place] [id number] Jun, Encounter for supervision of other normal , first trimester Z34.81 [facility] Mala[facility] ER[facility]ST Aquiris ProfitectE [id number][place] [id number] Jun, Encounter for supervision of other normal , first trimester Z34.81 ; Radiation exposure affecting in first trimester O09.891 ; Family history of other congenital malformations, deformations and chromosomal abnormalities Z82.79 ; Cardiac murmur, unspecified R01.1 and Obesity complicating in first trimester O99.211 [facility] BellyE [id number], [place] [id number] May, Positive test Z32.01 [facility] [id number][place] [address] May, Less than 8 weeks gestation of Z3A.01 [facility]ly[address] [id number], [place] [id number] May, [facility] [address] [facility] [address] [id number], [place] [id number] May, PCOS (polycystic ovarian syndrome) E28.2 [facility] [address] [facility] [address] [id number][place] [id number] May, PCOS (polycystic ovarian syndrome) E28.2 [facility] [address] [id number], [place] [id number] May, PCOS (polycystic ovarian syndrome) E28.2 [facility] [address] [id number], [place] [id number] Apr, [facility] [address]us[address] [place] [address] AV [id number], [place] [id number] Apr, [facility] [address] [place] [address] AV [id number], [place] [address] Apr, Obesity (BMI 30.0-34.9) E66.9 ; Cardiac murmur, previously undiagnosed R01.1 ; Chronic GERD K21.9 ; Other chronic pain G89.29 ; Pain in left shoulder M25.512 ; Pain in right shoulder M25.511 ; History of abnormal cervical Pap smear Z87.898 and Encounter to establish care Z76.[address] [id number], [place] [id number] Apr, Encounter for Nexplanon removal Z30.[address] [place] [id number], [place] [id number] Feb, Visit for TB skin test Z11.1 and Encounter for immunization Z23 [place] [address] [place] [address] Oct, Nexplanon insertion V25.5 [place] [address] [place] [id number] [place] [address] Oct, General counseling and advice for contraceptive management V25.09 [place] [address] [place] [id number] [place] [address] 16 Sep, 2014 Routine follow-up V24.2 [facility] [address] [id number], [place] [address] 28 Jul, 2014 Supervision of other normal V22.1 [facility] [address] [facility] [id number], [place] [address] 14 Jul, 2014 [facility] [address] [facility] [id number], [place] [address] Jul, [facility] [address] [facility] [id number], [place] [address] Jun, [facility] [address] [facility] [id number], [place] [address] Jun, [facility] [address]00565100[place], [place] [address] Jun, [facility] [address] [facility] [id number], [place] [address] Jun, [facility] [address] [id number], [place] [address] May, [facility] [address] [id number], [place] [address] May, [facility] [address] [id number], [place] [address] May, [facility] [address] [id number], [place] [address] May, [facility] [address] [id number], [place] [address] May, [facility] [address] [id number], [place] [address] May, [facility] [place] [facility] [address] [id number], [place] [address] Apr, [facility] [address] [id number] [place] [address] Apr, [facility] [place] [facility] [address] [id number] [place] [address] Apr, [facility] [place] [facility] [address] [id number] [place] [address] Apr, [facility] [place] [facility] [address] [id number] [place] [address] Mar, [facility] [place] [facility] [address] [id number] [place] [address] Mar, [facility] [place] [facility] [address] [id number] [place] Mar, [facility] [place] [facility] [address] [id number] [place] [address] Mar, [facility] [place] [facility] [address] [facility] [id number] [place] [address] Mar, [facility] [place] [facility] [address] [id number] [place] [address] Mar, [facility] [place] [facility] [address] [id number] [place] [address] Mar, [facility] [place] [facility] [address] [facility] [id number] [place] [address] Mar, [facility] [place] [facility] [address] [id number] [place] [address] Mar, [facility] [place] [facility] [address] [id number] [place] [address] Mar, [facility] [place] [facility] [address] [id number] [place] [address] Jan, [facility] [place] [facility] [address] [id number] [place] [address]- [address] Jan, [facility] [place] [facility] [address] [id number] [place] [address] Jan, [facility] [place] [facility] [address] [id number] [place] [address] Jan, [facility] [place] [facility] [address] [id number] [place] [address] Jan, [facility] [place] [facility] [address] [id number] [place] [address]- [address] Jan, [facility] [place] [facility] [address] [id number] [place] [address]- [address] Jan, [facility] [place] [facility] [address] [id number] [place] [address] Jan, [facility] [place] [facility] [address] [id number] [place] [address]- [address] Jan, [facility] [place] [facility] [address] [id number] [place] [address]- 6[address] Jan, [facility] [place] [facility] [address] [id number] [place] [address]- [address] 23 Dec, 2013 [facility] [place] [facility] [address] [id number] [place] [address]- [address] 23 Dec, 2013 [facility] [place] [facility] [address] [id number] [place] [address]- [address] 16 Dec, 2013 [facility] [place] [facility] [address] [id number] [place] [address]- [address] 16 Dec, 2013 [facility] [place] [facility] [address] [id number] [place] [address]- [address] 12 Dec, 2013 [facility] [place] [facility] [address] [id number] [place] [address]- 4548 12 Dec, 2013 [facility] [place] [facility] [address] [id number] [place] [address]- [address] 10 Dec, 2013 [facility] [place] [facility] [address] [id number] [place] [address]- [address] 10 Dec, 2013 [facility] [place] [facility] [address] [id number], [place] [address] Dec, [facility] [address] [id number] [address] Dec, [facility] [address] [id number], [place] [address] Dec, [facility] [address]65100[place], [place] [address] Dec, [facility] [address]00565100[place], [place] [address] Dec, [facility] [address] [id number] [address] Dec, [facility] [address]00565100[place] [address] Dec, [facility] [address]00565100[place], [place] [address] Nov, [facility] [address] [id number], [place] [address] Nov, IMMUNIZATIONS No Known Immunizations SOCIAL HISTORY Never Assessed REASON FOR VISIT OB f/u---13 and 1---ENRIKE rod PLAN OF CARE Activity Details Follow Up 4 Weeks Reason: Pending Test PAP REFLEX TO HPV IF ASCUS VITAL SIGNS Height 60 in 2017-07-18 Weight 155.5 lbs 2017-07-18 Temperature 97.6 degrees Fahrenheit 2017-07-18 Heart Rate 110 bpm 2017-07-18 Respiratory Rate 16 2017-07-18 BMI 30.369 kg/m2 2017-07-18 Blood pressure systolic 102 mmHg 2017-07-18 Blood pressure diastolic 60 mmHg 2017-07-18 MEDICATIONS Medication Instructions Dosage Frequency Start Date End Date Duration Status Vitamin 27-0.8 MG Orally Once a day 1 tablet 24h May, 90 days Active Amoxicillin 500 mg Orally 3 times a day 1 capsule 8h Jul, Jul, 10 day(s) Active Omeprazole 20 mg Orally Once a day 1 capsule 24h Apr, 30 day(s ) Active RESULTS No Results PROCEDURES Procedure Date Ordered Result Body Site URINE-NO MICRO July 18, 2017 SPECIMEN HANDLING July 18, 2017 TRICHOMONAS ASSAY W/OPTIC July 18, 2017 CHYLMD TRACH, DNA, AMP PROBE July 18, 2017 CULTURE, BACTERIA, OTHER July 18, 2017 N.GONORRHOEAE, DNA, AMP PROB July 18, 2017 INSTRUCTIONS MEDICATIONS ADMINISTERED No Known Medications MEDICAL (GENERAL) HISTORY Type Description Date Medical 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
--- OUTSIDE RECORDS SUMMARY | 2018-01-16 05:52 | XMS REPORT ---
Author Author MARY CHAVEZ [facility] Address [address] [place] [address] Care Team Providers Care Grinding Operator Name Role Phone SCOTT MARY Unavailable PROBLEMS Type Condition ICD9-CM Code [id number] Code Onset Dates Condition Status SNOMED Code Problem PCOS (polycystic ovarian syndrome) E28.2 Active 20197497 Problem Family history of other congenital malformations, deformations and chromosomal abnormalities Z82.79 Active 270711474 Problem Cardiac murmur, unspecified R01.1 Active 44183264 Problem Uterine size-date discrepancy in third trimester O26.843 Active 207257942 Problem Bilateral carpal tunnel syndrome G56.03 Active [id number] Problem Encounter for supervision of other normal , second trimester Z34.82 Active 98234474 Problem Radiation exposure affecting in second trimester O09.892 Active 107343441 Problem Interstitial cystitis (chronic) with hematuria N30.11 Active 745190769 Problem Obesity complicating , second trimester O99.212 Active 336522621704 Problem Pain in right shoulder M25.511 Active 94936230 Problem Other chronic pain G89.29 Active 28056643 Problem Low lying placenta NOS or without hemorrhage, second trimester O44.42 Active 695397811 Problem Obesity (BMI 30.0-34.9) E66.9 Active 845633610967296 Problem Pain in left shoulder M25.512 Active 27207838 Problem Chronic GERD K21.9 Active 643826747 ALLERGIES No Information ENCOUNTERS Encounter Location Date Diagnosis [facility] [address] [facility] [id number][place] [id number] Nov, [facility] [address] [id number] [place] [id number] Nov, [facility] [address] [facility] [id number] [place] [id number] Oct, Encounter for supervision of other normal , second trimester Z34.82 ; Radiation exposure affecting in second trimester O09.892 ; Obesity complicating , second trimester O99.212 ; Cardiac murmur, unspecified R01.1 ; Interstitial cystitis (chronic) with hematuria N30.11 ; Chronic GERD K21.9 ; Bilateral carpal tunnel syndrome G56.03 and Uterine size- date discrepancy in third trimester O26.843 [facility] [address] [facility] [id number][place] [address] Oct, Chronic GERD K21.9 [facility] [address] [id number][place] [address] Oct, Encounter for supervision of other normal , second trimester Z34.82 [facility] [address] [facility] [id number][place] [address] Oct, Low lying placenta NOS or without hemorrhage, second trimester O44.42 [facility] [address] [id number], [place] [id number] Sep, Encounter for supervision of other normal , second trimester Z34.82 ; Radiation exposure affecting in second trimester O09.892 ; Low lying placenta NOS or without hemorrhage, second trimester O44.42 ; Cellulitis of left upper extremity L03.114 and Cellulitis of left finger L03.012 [facility] [address] [id number] [place] [address] Sep, Encounter for supervision of other normal , second trimester Z34.82 ; Interstitial cystitis (chronic) with hematuria N30.11 ; Obesity complicating , second trimester O99.212 ; Radiation exposure affecting in second trimester O09.892 and Low lying placenta NOS or without hemorrhage, second trimester O44.42 [facility] [address] [id number], [place] [address] Sep, Dysuria R30.[address] [id number] [place] [address] Sep, Dysuria R30.0 and Other specified related conditions, second trimester O26.892 [facility] [address] [id number] [place] [address] August, [facility] [address] [id number][place] [address] August, Encounter for supervision of other normal , second trimester Z34.82 ; Obesity complicating , second trimester O99.212 ; Radiation exposure affecting in second trimester O09.892 ; Chronic GERD K21.9 ; Family history of other congenital malformations, deformations and chromosomal abnormalities Z82.79 and Cardiac murmur, unspecified R01.[address] [address] [id number], [place] [id number] Jul, Encounter for supervision of other normal , first trimester Z34.81 ; Obesity complicating , first trimester O99.211 and Radiation exposure affecting in first trimester O09.891 [facility] OvernightPhoebe [address] Tiny PicturesE [id number], [place] [address] Jul, Urinary tract infection N39.0 and UTI (urinary tract infection) in in first trimester O23.41 [facility] OvernightPhoebe ER[address] [employer] [place], [place] [address]E [id number][place] [id number] Jun, Encounter for supervision of other normal , first trimester Z34.81 [facility] SwarmforceTodd GeoGraffitiE [id number], [place] [address] Jun, Encounter for supervision of other normal , first trimester Z34.81 ; Radiation exposure affecting in first trimester O09.891 ; Family history of other congenital malformations, deformations and chromosomal abnormalities Z82.79 ; Cardiac murmur, unspecified R01.1 and Obesity complicating in first trimester O99.211 [facility] ER[address] SwarmforceTodd GeoGraffitiE [id number], [place] [id number] May, Positive test Z32.01 [facility] OvernightPhoeeb [address] Tiny PicturesE [id number], [place] [id number] May, Less than 8 weeks gestation of Z3A.01 [facility] [address] Tiny PicturesE [id number], [place] [id number] 12 May, 2017 [facility] [address] [facility] [address] [id number], [place] [address] May, PCOS (polycystic ovarian syndrome) E28.2 [facility] [address] [facility] [address] [id number], [place] [id number] May, PCOS (polycystic ovarian syndrome) E28.2 [facility] [address] [id number], [place] [address] May, PCOS (polycystic ovarian syndrome) E28.2 [facility] [address] [id number], [place] [id number] Apr, [facility] Lemus[address] [place] [address] AV [id number], [place] [id number] Apr, [facility] ERNST [address] [place] [address] AV [id number], [place] [id number] Apr, Obesity (BMI 30.0-34.9) E66.9 ; Cardiac murmur, previously undiagnosed R01.1 ; Chronic GERD K21.9 ; Other chronic pain G89.29 ; Pain in left shoulder M25.512 ; Pain in right shoulder M25.511 ; History of abnormal cervical Pap smear Z87.898 and Encounter to establish care Z76.89 [facility] [address]ST[address] [id number], [place] [id number] Apr, Encounter for Nexplanon removal Z30.[address] [id number], [place] [address] Feb, Visit for TB skin test Z11.1 and Encounter for immunization Z23 [place] [id number] [place] [address] Oct, Nexplanon insertion V25.5 [place] [id number] [place] [address] Oct, General counseling and advice for contraceptive management V25.09 [place] [id number] [place] [address] 16 Sep, 2014 [facility] V24.2 [facility] [address] [facility] [id number] [address] 28 Jul, 2014 Supervision of other normal V22.1 [facility] [address] [id number] [place] [address] 14 Jul, 2014 [facility] [address] [facility] [id number] [place] [address] Jul, [facility] [address] [facility] [id number] [place] [address] Jun, [facility] [address] [facility] [id number] [place] [address] Jun, [facility] [address]00565100[place] [address] Jun, [facility] [address] [facility] [id number] [place] [address] Jun, [facility] [address] [id number] [address] May, [facility] [address] [id number] [address] May, [facility] [address] [id number] [address] May, [facility] [address] [id number] [address] May, [facility] [address] [facility] [id number] [place] [address] May, [facility] [address] [facility] [id number] [place] [address] May, [facility] [address] [id number] [address] Apr, [facility] [address] [place] [address] Apr, [facility] [place] [facility] [address] [id number] [place] [address] Apr, [facility] [place] [facility] [address] [id number] [place] [address] Apr, [facility] [place] [facility] [address] [id number] [place] [address] Mar, [facility] [place] [facility] [address] [id number] [place] [address] Mar, [facility] [place] [facility] [address] [id number] [place] [address] Mar, [facility] [place] [facility] [address] [id number] [place] [address] Mar, [facility] [place] [facility] [address] [id number] [place] [address]- [address] Mar, [facility] [place] [facility] [address] [id number] [place] [address]- [address] Mar, [facility] [place] [facility] [address] [id number] [place] [address]- [address] Mar, [facility] [place] [facility] [address] [facility] [id number] [place] [address] Mar, [facility] [place] [facility] [address] [id number] [place] [address]- [address] Mar, [facility] [place] [facility] [address] [id number] [place] [address]- [address] Mar, [facility] [place] [facility] [address] [id number] [place] [address]- [address] Jan, [facility] [place] [facility] [address] [id number] [place] [address]- [address] Jan, [facility] [place] [facility] [address] [id number] [place] [address]- [address]65 Jan, [facility] [place] [facility] [address] [id number] [place] [address]- [address] Jan, 2013 [facility] [place] [facility] [address] [id number] [place] [address]- [address] Jan, [facility] [place] [facility] [address] [id number] [place] [address]- 6661 Jan, [facility] [place] [facility] [address] [id number] [place] [address]- 1315 Jan, [facility] [place] [facility] [address] [id number] [place] [address]- 0067 Jan, [facility] [place] [facility] [address] [id number] [place] [address]- 84[address] Jan, [facility] [place] [facility] [address] [id number] [place] [address]- [address]336 Jan, [facility] [place] [facility] [address] [id number] [place] [address]- [address] 23 Dec, 2013 [facility] [place] [facility] [address] [id number] [place] [address]- [address] 23 Dec, 2013 [facility] [place] [facility] [address] [id number] [place] [address]- 1451 16 Dec, 2013 [facility] [place] [facility] [address] [id number] [place] [address]- 6317 16 Dec, 2013 [facility] [place] [facility] [address] [id number] [place] [address]- 30[address] 12 Dec, 2013 [facility] [place] [facility] [address] [id number] [place] [address]- [address] 12 Dec, 2013 [facility] [place] [facility] [address] [id number] [place] [address]- [address]42 10 Dec, 2013 [facility] [place] [facility] [address] [id number] [place] [address]- 7832 10 Dec, 2013 [facility] [place] [facility] [address] [id number] [address] Dec, [facility] [address] [facility] [id number] [place] [address] Dec, [facility] [address] [facility] [id number] [place] [address] Dec, [facility] [address] [facility] [id number] [place] [address] Dec, [facility] [address] [facility] [id number] [place] [address] Dec, [facility] [address] [facility] [id number] [place] Dec, [facility] [address] [id number] [address] Dec, [facility] [address] [id number] [address] Nov, [facility] [address] [facility] [id number] [place] [address] Nov, IMMUNIZATIONS No Known Immunizations SOCIAL HISTORY Never Assessed REASON FOR VISIT Jeffrey BROWN PLAN OF CARE VITAL SIGNS MEDICATIONS Medication Instructions Dosage Frequency Start Date End Date Duration Status Amoxicillin 500 mg Orally 3 times a day 1 capsule 8h Jul, Jul, 10 day(s) Active RESULTS No Results PROCEDURES Procedure Date Ordered Result Body Site URINALYSIS, AUTO, W/O SCOPE July 12, 2017 URINE-NO MICRO July 12, 2017 INSTRUCTIONS MEDICATIONS ADMINISTERED No Known Medications MEDICAL (GENERAL) HISTORY Type Description Date Medical 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
--- OUTSIDE RECORDS SUMMARY | 2018-01-16 05:52 | XMS REPORT ---
Author Author MARY CHAVEZ Organization [facility] Address [address] [place] [address] Care Team Providers Care Marine Architect Name Role Phone SCOTT MARY Unavailable PROBLEMS Type Condition ICD9-CM Code KCJ28-DR Code Onset Dates Condition Status SNOMED Code Problem PCOS (polycystic ovarian syndrome) E28.2 Active 54751369 Problem Family history of other congenital malformations, deformations and chromosomal abnormalities Z82.79 Active 951509515 Problem Cardiac murmur, unspecified R01.1 Active 77665162 Problem Uterine size-date discrepancy in third trimester O26.843 Active 480213666 Problem Bilateral carpal tunnel syndrome G56.03 Active [id number] Problem Encounter for supervision of other normal , second trimester Z34.82 Active 31720379 Problem Radiation exposure affecting in second trimester O09.892 Active 180691343 Problem Interstitial cystitis (chronic) with hematuria N30.11 Active 397521263 Problem Obesity complicating , second trimester O99.212 Active 026990977057 Problem Pain in right shoulder M25.511 Active 96863905 Problem Other chronic pain G89.29 Active 99332721 Problem Low lying placenta NOS or without hemorrhage, second trimester O44.42 Active 784177666 Problem Obesity (BMI 30.0-34.9) E66.9 Active 345051249803957 Problem Pain in left shoulder M25.512 Active 21934047 Problem Chronic GERD K21.9 Active 039918693 ALLERGIES No Information ENCOUNTERS Encounter Location Date Diagnosis [facility] [address] [facility] [id number] [place] [id number] Oct, Encounter for supervision of other normal , second trimester Z34.82 ; Radiation exposure affecting in second trimester O09.892 ; Obesity complicating , second trimester O99.212 ; Cardiac murmur, unspecified R01.1 ; Interstitial cystitis (chronic) with hematuria N30.11 ; Chronic GERD K21.9 ; Bilateral carpal tunnel syndrome G56.03 and Uterine size- date discrepancy in third trimester O26.843 [facility] [place] [address] [facility] [id number] [id number] Oct, Chronic GERD K21.9 [facility] [address] [id number] [place] [id number] Oct, Encounter for supervision of other normal , second trimester Z34.82 [facility] [address] [facility] [id number] [id number] Oct, Low lying placenta NOS or without hemorrhage, second trimester O44.42 [facility] [address] [id number] [place] [id number] Sep, Encounter for supervision of other normal , second trimester Z34.82 ; Radiation exposure affecting in second trimester O09.892 ; Low lying placenta NOS or without hemorrhage, second trimester O44.42 ; Cellulitis of left upper extremity L03.114 and Cellulitis of left finger L03.[address] [place] [address] [id number] [place] [id number] Sep, Encounter for supervision of other normal , second trimester Z34.82 ; Interstitial cystitis (chronic) with hematuria N30.11 ; Obesity complicating , second trimester O99.212 ; Radiation exposure affecting in second trimester O09.892 and Low lying placenta NOS or without hemorrhage, second trimester O44.42 [facility] [address] [id number] [place] [address] Sep, Dysuria R30.0 [facility] [address] [id number] [place] [id number] Sep, Dysuria R30.0 and Other specified related conditions, second trimester O26.892 [facility] [address] [id number] [place] [id number] August, [facility] [address] [id number] [place] [id number] August, Encounter for supervision of other normal , second trimester Z34.82 ; Obesity complicating , second trimester O99.212 ; Radiation exposure affecting in second trimester O09.892 ; Chronic GERD K21.9 ; Family history of other congenital malformations, deformations and chromosomal abnormalities Z82.79 and Cardiac murmur, unspecified R01.[address] [facility] [id number] [place] [address] Jul, Encounter for supervision of other normal , first trimester Z34.81 ; Obesity complicating , first trimester O99.211 and Radiation exposure affecting in first trimester O09.891 [facility] [id number] [place] [address] Jul, Urinary tract infection N39.0 and UTI (urinary tract infection) in in first trimester O23.[address] [id number] [place] [id number] Jun, Encounter for supervision of other normal , first trimester Z34.81 [facility] [id number] [place] [address] Jun, Encounter for supervision of other normal , first trimester Z34.81 ; Radiation exposure affecting in first trimester O09.891 ; Family history of other congenital malformations, deformations and chromosomal abnormalities Z82.79 ; Cardiac murmur, unspecified R01.1 and Obesity complicating in first trimester O99.211 [facility] [id number] [place] [id number] May, Positive test Z32.[address] [id number] [place] [id number] May, Less than 8 weeks gestation of Z3A.[address] [id number] [place] [id number] May, [address] [id number] [place] [address] May, PCOS (polycystic ovarian syndrome) E28.[address] [id number] [place] [address] May, PCOS (polycystic ovarian syndrome) E28.2 [facility] [address] [id number] [place] [id number] May, PCOS (polycystic ovarian syndrome) E28.[address] [id number] [place] [id number] Apr, [facility] [address] [id number] [place] [id number] Apr, [facility] [address] [id number] [place] [id number] Apr, Obesity (BMI 30.0-34.9) E66.9 ; Cardiac murmur, previously undiagnosed R01.1 ; Chronic GERD K21.9 ; Other chronic pain G89.29 ; Pain in left shoulder M25.512 ; Pain in right shoulder M25.511 ; History of abnormal cervical Pap smear Z87.898 and Encounter to establish care Z76.[address] [id number] [place] [id number] Apr, Encounter for Nexplanon removal Z30.[address] [id number] [place] [id number] Feb, Visit for TB skin test Z11.1 and Encounter for immunization Z23 [place] [id number] [place] [address] 30 Oct, 2014 Nexplanon insertion V25.5 [place] [address] [place] [id number] [place] [address] 14 Oct, 2014 General counseling and advice for contraceptive management V25.09 [place] [address] [place] [id number] [place] [address] 16 Sep, 2014 Routine follow-up V24.2 [place] [address] [place] [id number] [place] [address] 28 Apr, 2015 Supervision of other normal V22.1 [facility] [place] [facility] [address] [id number] [place] [address] 14 Jul, 2014 [facility] [place] [facility] [address] [id number] [place] [address] Jul, [facility] [place] [facility] [address] [id number] [place] [address] Jun, [facility] [place] [facility] [address] [id number] [place] [address] Jun, [facility] [place] [facility] [address] [id number] [place] [address] Jun, [facility] [place] [facility] [address] [id number] [place] [address] Jun, [facility] [place] [facility] [address] [place] [id number] [place] [address] 18 May, 2014 [facility] [place] [facility] [address] [id number] [place] [address] May, [facility] [place] [facility] [address] [id number] [place] [address] May, [facility] [place] [facility] [address] [facility] [id number] [place] [address] May, [facility] [place] [facility] [address] [id number] [place] [address] May, [facility] [place] [facility] [address] [id number] [place] [address] May, [facility] [place] [facility] [address] [id number] [place] Apr, [facility] [place] [facility] [address] [facility] [id number] [place] Apr, [facility] [place] [facility] [address] [facility] [id number] [place] [address] Apr, [facility] [place] [facility] [address] [id number] [place] [address] Apr, [facility] [place] [facility] [address] [id number] [place] [address] Mar, [facility] [place] [facility] [address] [id number] [place] [address] Mar, [facility] [place] [facility] [address] [id number] [place] [address] Mar, [facility] [place] [facility] [address] [id number] [place] [address] Mar, [facility] [place] [facility] [address] [id number] [place] [address] Mar, [facility] [place] [facility] [address] [id number] [place] Mar, [facility] [place] [facility] [address] [id number] [place] [address]97 Mar, [facility] [place] [facility] [address] [id number] [place] [address] Mar, [facility] [place] [facility] [address] [id number] [place] [address] Mar, [facility] [place] [facility] [address] [id number] [place] [address] Mar, [facility] [place] [facility] [address] [id number] [place] [address] Jan, [facility] [place] [facility] [address] [id number] [place] [address] Jan, [facility] [place] [facility] [address] [id number] [place] [address] Jan, [facility] [place] [facility] [address] [id number] [place] [address] Jan, [facility] [place] [facility] [address] [id number] [place] [address] Jan, [facility] [place] [facility] [address] [id number] [place] [address] 06 Jan, 2014 [facility] [place] [facility] [address] [id number] [place] [address] 05 Jan, 2014 [facility] [place] [facility] [address] [id number] [place] [address] 48[address] Jan, [facility] [place] [facility] [address] [id number] [place] [address]406 Jan, [facility] [place] [facility] [address] [id number] [place] [address]- [address] Jan, [facility] [place] [facility] [address] [id number] [place] [address]- [address] 23 Dec, 2013 [facility] [place] [facility] [address] [id number] [place] [address]- [address]10 23 Dec, 2013 [facility] [place] [facility] [address] [id number] [place] [address]- [address]135 16 Dec, 2013 [facility] [place] [facility] [address] [id number] [place] [address]798 16 Dec, 2013 [facility] [place] [facility] [address] [id number] [place] [address]- [address]143 12 Dec, 2013 [facility] [place] [facility] [address] [id number] [place] [address]- 1687 12 Dec, 2013 [facility] [place] [facility] [address] [id number] [place] [address]- [address]672 10 Dec, 2013 [facility] [place] [facility] [address] [id number] [place] [address]- [address]44 10 Dec, 2013 [facility] [place] [facility] [address] [id number] [place] [address]- [address] 09 Dec, 2013 [facility] [place] [facility] [address] [id number] [place] [address]- [address] 08 Dec, 2013 [facility] [place] [facility] [address] [id number] [address] Dec, [facility] [address] [facility] [id number], [place] [address] Dec, [facility] [address] [facility] [id number], [place] [address]48 Dec, [facility] [address] [facility] [id number][place] [address] Dec, [facility] [address] [facility]] [id number][place] [address] Dec, [facility] [address] [facility]] [id number], [place] [address] Nov, [facility] [address] [facility]] [id number], [place] [address] Nov, IMMUNIZATIONS No Known Immunizations SOCIAL HISTORY Never Assessed REASON FOR VISIT Lab (walk-in) baldo aviles PLAN OF CARE VITAL SIGNS MEDICATIONS Unknown Medications RESULTS No Results PROCEDURES Procedure Date Ordered Result Body Site BLOOD SEROLOGY, QUALITATIVE June 30, 2017 RBC ANTIBODY SCREEN June 30, 2017 HEPATITIS B SURFACE AG, EIA June 30, 2017 COMPREHEN METABOLIC PANEL June 30, 2017 HIV-1 AG W/HIV-1 & HIV-2 AB June 30, 2017 BLOOD TYPING, ABO June 30, 2017 BLOOD TYPING, RH (D) June 30, 2017 HEPATITIS C AB TEST June 30, 2017 ASSAY THYROID STIM HORMONE June 30, 2017 ROUTINE VENIPUNCTURE 2017-06-30 N/A VARICELLA-ZOSTER ANTIBODY June 30, 2017 RUBELLA ANTIBODY June 30, 2017 COMPLETE CBC W/AUTO DIFF WBC June 30, 2017 CHRMOML ANEUPLOIDY June 30, 2017 INSTRUCTIONS MEDICATIONS ADMINISTERED No Known Medications MEDICAL (GENERAL) HISTORY Type Description Date Medical 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
--- OUTSIDE RECORDS SUMMARY | 2018-01-16 05:53 | XMS REPORT ---
Author Author MARY CHAVEZ [facility] Address [address] [place] [address] Care Team Providers Care Chopper Operator Name Role Phone MARY CHAVEZ Unavailable PROBLEMS Type Condition ICD9-CM Code SRQ69-DP Code Onset Dates Condition Status SNOMED Code Problem Obesity (BMI 30.0-34.9) E66.9 Active [id number] Problem PCOS (polycystic ovarian syndrome) E28.2 Active 99618509 Problem Chronic GERD K21.9 Active 080622171 Problem Low lying placenta NOS or without hemorrhage, second trimester O44.42 Active 897157684 Problem Pain in left shoulder M25.512 Active 93469189 Problem Pain in right shoulder M25.511 Active 11477579 Problem Other chronic pain G89.29 Active 18468161 Problem Interstitial cystitis (chronic) with hematuria N30.11 Active 827167944 Problem Obesity complicating , second trimester O99.212 Active 320472615355 Problem Family history of other congenital malformations, deformations and chromosomal abnormalities Z82.79 Active 988098051 Problem Cardiac murmur, unspecified R01.1 Active 85035990 Problem Encounter for supervision of other normal , second trimester Z34.82 Active 34511966 Problem Radiation exposure affecting in second trimester O09.892 Active 154292167 ALLERGIES No Information ENCOUNTERS Encounter Location Date Diagnosis [facility] [address] [id number] [place] [id number] Sep, Encounter for supervision of other normal , second trimester Z34.82 ; Radiation exposure affecting in second trimester O09.892 ; Low lying placenta NOS or without hemorrhage, second trimester O44.42 ; Cellulitis of left upper extremity L03.114 and Cellulitis of left finger L03.[address] [id number] [place] [id number] Sep, Encounter for supervision of other normal , second trimester Z34.82 ; Interstitial cystitis (chronic) with hematuria N30.11 ; Obesity complicating , second trimester O99.212 ; Radiation exposure affecting in second trimester O09.892 and Low lying placenta NOS or without hemorrhage, second trimester O44.42 [facility] [address] [id number] [place] [address] Sep, Dysuria R30.0 [facility] [employer] [address] [id number][place] [id number] Sep, Dysuria R30.0 and Other specified related conditions, second trimester O26.892 [facility] [employer] [address] [id number][place] [id number] August, [facility] [employer] [place] [address] AVE [id number] [id number] August, Encounter for supervision of other normal , second trimester Z34.82 ; Obesity complicating , second trimester O99.212 ; Radiation exposure affecting in second trimester O09.892 ; Chronic GERD K21.9 ; Family history of other congenital malformations, deformations and chromosomal abnormalities Z82.79 and Cardiac murmur, unspecified R01.1 [facility] [address] [id number][place] [id number] Jul, Encounter for supervision of other normal , first trimester Z34.81 ; Obesity complicating , first trimester O99.211 and Radiation exposure affecting in first trimester O09.891 [facility] [employer] [address] [id number], [place] [id number] Jul, Urinary tract infection N39.0 and UTI (urinary tract infection) in in first trimester O23.41 [facility] [address] [id number], [place] [address] Jun, Encounter for supervision of other normal , first trimester Z34.81 [facility] [employer] [address] [id number][place] [address] 12 Mar, 2018 Encounter for supervision of other normal , first trimester Z34.81 ; Radiation exposure affecting in first trimester O09.891 ; Family history of other congenital malformations, deformations and chromosomal abnormalities Z82.79 ; Cardiac murmur, unspecified R01.1 and Obesity complicating in first trimester O99.211 [facility] [employer] [place] [address] AVE [id number][place] [id number] 12 May, 2017 Positive test Z32.01 [facility] [address] [place] [address] AVE [id number][place] [id number] 12 May, 2017 Less than 8 weeks gestation of Z3A.01 [facility] [employer] [place] [address] [id number] [place] [id number] 12 May, 2017 [facility] [employer] [place] [address] [id number] [place] [id number] May, PCOS (polycystic ovarian syndrome) E28.2 [facility] [employer] [place] [address] AVE [id number], [place] [id number] May, PCOS (polycystic ovarian syndrome) E28.2 [facility] [employer] [place] [address] AV [id number][place] [id number] May, PCOS (polycystic ovarian syndrome) E28.2 [facility] [employer] [place] [address] AV [id number], [place] [id number] Apr, [facility] [employer] [place] [address] AV [id number][place] [id number] Apr, [facility] [address] [place] [address] AVE [id number], [place] [id number] Apr, Obesity (BMI 30.0-34.9) E66.9 ; Cardiac murmur, previously undiagnosed R01.1 ; Chronic GERD K21.9 ; Other chronic pain G89.29 ; Pain in left shoulder M25.512 ; Pain in right shoulder M25.511 ; History of abnormal cervical Pap smear Z87.898 and Encounter to establish care Z76.89 [facility] [employer] [address] [id number], [place] [address] Apr, Encounter for Nexplanon removal Z30.46 [facility] [address] [id number], [place] [id number] Feb, Visit for TB skin test Z11.1 and Encounter for immunization Z23 [facility] [address]65[address] [address] 30 Oct, 2014 Nexplanon insertion V25.5 [facility] [id number] [place] [address] 14 Oct, 2014 General counseling and advice for contraceptive management V25.09 [facility] [id number] [place] [address] 16 Sep, 2014 Routine follow-up V24.2 [facility] [address] [place] [address] 28 Jul, 2014 Supervision of other normal V22.1 [facility] [id number] [place] [address] 8[address] 14 Jul, 2014 [facility] [address] [place] [address] Jul, [facility] [address] [place] [address] Jun, [facility] [address], [place] [address] Jun, [facility] [address] [address] Jun, [facility] [address], [place] [address] Jun, [facility] [id number] [place] [address] May, [facility] [address] [address] May, [facility] [address] [id number] [place] [address] 17 May, 2014 [facility] [address] [id number] [place] [address] May, 2014 [facility] [place] [facility] [address] [id number] [place] [address] May, 2014 [facility] [address] [id number] [place] [address] May, 2014 [facility] [place] [facility] [address] [id number] [place] [address] Apr, [facility] [address] [id number] [place] [address] Apr, [facility] [address] [id number] [place] [address] Apr, [facility] [address] [facility] [id number] [place] [address] Apr, [facility] [address] [id number] [place] [address] Mar, [facility] [place] [facility] [address] [id number] [place] [address] Mar, [facility] [address] [facility] [id number] [place] [address] Mar, [facility] [place] [facility] [address] [id number] [place] [address] Mar, [facility] [place] [facility] [address] [id number] [place] [address] Mar, [facility] [place] [facility] [address] [id number] [place] [address] Mar, [facility] [place] [facility] [address] [id number] [place] [address] Mar, [facility] [place] [facility] [address] [facility] [id number] [place] [address] Mar, [facility] [place] [facility] [address] [id number] [place] [address] Mar, [facility] [place] [facility] [address] [id number] [place] [address] Mar, [facility] [place] [facility] [address] [id number] [place] [address] Jan, [facility] [place] [facility] [address] [id number] [place] [address] Jan, [facility] [place] [facility] [address] [id number] [place] [address] Jan, [facility] [place] [facility] [address] [id number] [place] [address]- 8723 Jan, [facility] [place] [facility] [address] [id number] [place] [address]- 7461 Jan, [facility] [place] [facility] [address] [id number] [place] [address]- [address]270 Jan, [facility] [place] [facility] [address] [id number] [place] [address] 5899 Jan, [facility] [place] [facility] [address] [id number], [place] [address] Jan, [facility] [place] [facility] [address] [id number], [place] [address] Jan, [facility] [place] [facility] [address] [id number] [address]- 1479 Jan, [facility] [place] [facility] [address] [id number] [place] [address]- [address] Dec, [facility] [place] [facility] [address] [id number] [place] [address] 23 Dec, 2013 [facility] [place] [facility] [address] [id number], [place] [address] 16 Dec, 2013 [facility] [place] [facility] [address] [id number], [place] [address] 16 Dec, 2013 [facility] [address], [place] [address] Dec, 2013 [facility] [address], [place] [address] Dec, [facility] [address], [place] [address] Dec, 2013 [facility] [address], [place] [address] Dec, [facility] [address], [place] [address] Dec, [facility] [address], [place] [address] Dec, [facility] [address], [place] [address] Dec, [facility] [address], [place] [address]- [address] Dec, [facility] [address], [place] [address] Dec, [facility] [address], [place] [address] Dec, [facility] [address], [place] [address] Dec, [facility] [address] [id number] [address] Nov, [facility] [address] [id number], [place] [address] Nov, IMMUNIZATIONS No Known Immunizations SOCIAL HISTORY Never Assessed REASON FOR VISIT labs baldo aviles PLAN OF CARE VITAL SIGNS MEDICATIONS Unknown Medications RESULTS No Results PROCEDURES Procedure Date Ordered Result Body Site URINE TEST May 23, 2017 INSTRUCTIONS MEDICATIONS ADMINISTERED No Known Medications MEDICAL (GENERAL) HISTORY Type Description Date Medical 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
--- OUTSIDE RECORDS SUMMARY | 2018-01-16 05:53 | XMS REPORT ---
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 Name Role Phone MARY CHAVEZ Unavailable PROBLEMS Type Condition ICD9-CM Code REZ34-RS Code Onset Dates Condition Status SNOMED Code Problem Obesity (BMI 30.0-34.9) E66.9 Active [id number] Problem PCOS (polycystic ovarian syndrome) E28.2 Active 60472805 Problem Chronic GERD K21.9 Active 281307620 Problem Low lying placenta NOS or without hemorrhage, second trimester O44.42 Active 660484850 Problem Pain in left shoulder M25.512 Active 07819380 Problem Pain in right shoulder M25.511 Active 50975120 Problem Other chronic pain G89.29 Active 70271196 Problem Interstitial cystitis (chronic) with hematuria N30.11 Active 610834050 Problem Obesity complicating , second trimester O99.212 Active 982046655569 Problem Family history of other congenital malformations, deformations and chromosomal abnormalities Z82.79 Active 422434021 Problem Cardiac murmur, unspecified R01.1 Active 90920300 Problem Encounter for supervision of other normal , second trimester Z34.82 Active 79986195 Problem Radiation exposure affecting in second trimester O09.892 Active 256672024 ALLERGIES No Information ENCOUNTERS Encounter Location Date Diagnosis [facility] [id number] [place] [id number] Sep, Encounter for supervision of other normal , second trimester Z34.82 ; Radiation exposure affecting in second trimester O09.892 ; Low lying placenta NOS or without hemorrhage, second trimester O44.42 ; Cellulitis of left upper extremity L03.114 and Cellulitis of left finger L03.[address] [id number] [place] [id number] Sep, Encounter for supervision of other normal , second trimester Z34.82 ; Interstitial cystitis (chronic) with hematuria N30.11 ; Obesity complicating , second trimester O99.212 ; Radiation exposure affecting in second trimester O09.892 and Low lying placenta NOS or without hemorrhage, second trimester O44.42 [facility] [address] [id number] [place] [address] Sep, Dysuria R30.0 [facility] [address] [id number][place] [id number] Sep, Dysuria R30.0 and Other specified related conditions, second trimester O26.892 [facility] [address] [id number][place] [id number] August, [facility] [address] [place] [address] AVE [id number], [place] [id number] August, Encounter for supervision of other normal , second trimester Z34.82 ; Obesity complicating , second trimester O99.212 ; Radiation exposure affecting in second trimester O09.892 ; Chronic GERD K21.9 ; Family history of other congenital malformations, deformations and chromosomal abnormalities Z82.79 and Cardiac murmur, unspecified R01.1 [facility] [address] [id number][place] [id number] Jul, Encounter for supervision of other normal , first trimester Z34.81 ; Obesity complicating , first trimester O99.211 and Radiation exposure affecting in first trimester O09.891 [facility] [address] [id number], [place] [id number] Jul, Urinary tract infection N39.0 and UTI (urinary tract infection) in in first trimester O23.41 [facility] [address] [id number], [place] [id number] Jun, Encounter for supervision of other normal , first trimester Z34.81 [facility] [address] [id number], [place] [id number] 12 Mar, 2018 Encounter for supervision of other normal , first trimester Z34.81 ; Radiation exposure affecting in first trimester O09.891 ; Family history of other congenital malformations, deformations and chromosomal abnormalities Z82.79 ; Cardiac murmur, unspecified R01.1 and Obesity complicating in first trimester O99.211 [facility] [address] [place] [address] AVE [id number], [place] [id number] 12 May, 2017 Positive test Z32.01 [facility] [address] [place] [address] AVE [id number], [place] [id number] 12 May, 2017 Less than 8 weeks gestation of Z3A.01 [facility] [address] [place] [address] [id number] [place] [id number] 12 May, 2017 [facility] [address] [place] [address] [id number] [place] [id number] May, PCOS (polycystic ovarian syndrome) E28.2 [facility] [address] [place] [address] AVE [id number], [place] [id number] May, PCOS (polycystic ovarian syndrome) E28.2 [facility] [address] [place] [address] [place] [id number], [place] [id number] May, PCOS (polycystic ovarian syndrome) E28.2 [facility] [address] [place] [address] AV [id number], [place] [id number] Apr, [facility] [address] [place] [address] AV [id number], [place] [id number] Apr, [facility] [address] [place] [address] AVE [id number], [place] [id number] Apr, Obesity (BMI 30.0-34.9) E66.9 ; Cardiac murmur, previously undiagnosed R01.1 ; Chronic GERD K21.9 ; Other chronic pain G89.29 ; Pain in left shoulder M25.512 ; Pain in right shoulder M25.511 ; History of abnormal cervical Pap smear Z87.898 and Encounter to establish care Z76.89 [facility] [id number], [place] [id number] Apr, Encounter for Nexplanon removal Z30.46 [facility] [address] [id number], [place] [id number] Feb, Visit for TB skin test Z11.1 and Encounter for immunization Z23 [facility] [place] [address]005[address] [address] 30 Oct, 2014 Nexplanon insertion V25.5 [facility] [place] [id number] [place] [address] 14 Oct, 2014 General counseling and advice for contraceptive management V25.09 [facility] [place] [id number] [place] [address] 16 Sep, 2014 Routine follow-up V24.2 [facility] [place] [address] [place] [address] 28 Jul, 2014 Supervision of other normal V22.1 [facility] [place] [id number] [place] [address] 14 Jul, 2014 [facility] [place] [address] [place] [address] Jul, [facility] [place] [address] [place] [address] Jun, [facility] [place] [address]00565[address] [address] Jun, [facility] [place] [address] [address] Jun, [facility] [place] [address]100[place] [address] Jun, [facility] [place] [id number] [place] [address] May, [facility] [place] [address]65100[place] [address] May, [facility] [place] [address] [id number] [place] [address] 17 May, 2014 [facility] [address] [id number] [place] [address] May, 2014 [facility] [place] [facility] [address] [id number] [place] [address] May, 2014 [facility] [address] [id number] [place] [address] May, 2014 [facility] [place] [facility] [address] [id number] [place] [address] Apr, [facility] [address] [id number] [place] [address] Apr, [facility] [address] [id number] [place] [address] Apr, [facility] [address] [facility] [id number] [place] [address] Apr, [facility] [address] [id number] [place] [address] Mar, [facility] [place] [facility] [address] [id number] [place] [address] Mar, [facility] [address] [facility] [id number] [place] [address] Mar, [facility] [place] [facility] [address] [id number] [place] [address] 9[address] Mar, [facility] [place] [facility] [address] [id number] [place] [address] 9362 Mar, [facility] [place] [facility] [address] [id number] [place] [address] Mar, [facility] [place] [facility] [address] [id number] [place] [address] Mar, [facility] [place] [facility] [address] [facility] [id number] [place] [address] Mar, [facility] [place] [facility] [address] [id number] [place] [address]- 9761 Mar, [facility] [place] [facility] [address] [id number] [place] [address] Mar, [facility] [place] [facility] [address] [id number] [place] [address] Jan, [facility] [place] [facility] [address] [id number] [place] [address]- 44[address] Jan, [facility] [place] [facility] [address] [id number] [place] [address] Jan, [facility] [place] [facility] [address] [id number] [place] [address]- 9466 Jan, [facility] [place] [facility] [address] [id number] [place] [address]- 6848 Jan, [facility] [place] [facility] [address] [id number] [place] [address]- 7[address] Jan, [facility] [place] [facility] [address] [id number] [place] [address]- 7346 Jan, [facility] [place] [facility] [address] [id number] [address] Jan, [facility] [place] [facility] [address] [id number] [address]- 6[address] Jan, [facility] [place] [facility] [address] [id number] [address] Jan, [facility] [place] [facility] [address] [id number] [place] [address]- 84[address] Dec, [facility] [place] [facility] [address] [id number] [place] [address] 23 Dec, 2013 [facility] [place] [facility] [address] [id number] [address]- 2769 16 Dec, 2013 [facility] [place] [facility] [address] [id number] [address] 16 Dec, 2013 [facility] [place] [address] [address] 12 Dec, 2013 [facility] [place] [address] [address] Dec, [facility] [place] [address] [address] Dec, 2013 [facility] [place] [address] [address] 10 Dec, 2013 [facility] [place] [id number] [place] [address]- 9842 Dec, [facility] [place] [id number] [address] Dec, [facility] [place] [address] [address] Dec, [facility] [place] [address] [address] Dec, [facility] [place] [address] [address] Dec, [facility] [place] [address] [address] Dec, [facility] [place] [address] [address] Dec, [facility] [place] [address] [id number] [address] Nov, [facility] [place] [address] [address] Nov, IMMUNIZATIONS No Known Immunizations SOCIAL HISTORY Never Assessed REASON FOR VISIT Lab (walk-in) baldo aviles PLAN OF CARE VITAL SIGNS MEDICATIONS Unknown Medications RESULTS No Results PROCEDURES Procedure Date Ordered Result Body Site ROUTINE VENIPUNCTURE 2017-05-19 N/A GLUCOSE TOLERANCE TEST (GTT) May 19, 2017 INSTRUCTIONS MEDICATIONS ADMINISTERED No Known Medications MEDICAL (GENERAL) HISTORY Type Description Date Medical 

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
--- OUTSIDE RECORDS SUMMARY | 2018-01-16 05:53 | XMS REPORT ---
Author Author MARY CHAVEZ [facility] Address [address] [place] [address] Care Team Providers Care Case Coordinator Name Role Phone MARY CHAVEZ Unavailable PROBLEMS Type Condition ICD9-CM Code [id number] Code Onset Dates Condition Status SNOMED Code Problem Obesity (BMI 30.0-34.9) E66.9 Active 591153745738894 Problem PCOS (polycystic ovarian syndrome) E28.2 Active 91458966 Problem Chronic GERD K21.9 Active 140137448 Problem Low lying placenta NOS or without hemorrhage, second trimester O44.42 Active 956702218 Problem Pain in left shoulder M25.512 Active 49906345 Problem Pain in right shoulder M25.511 Active 60338655 Problem Other chronic pain G89.29 Active 34518045 Problem Interstitial cystitis (chronic) with hematuria N30.11 Active 405646804 Problem Obesity complicating , second trimester O99.212 Active 020489272328 Problem Family history of other congenital malformations, deformations and chromosomal abnormalities Z82.79 Active 269954164 Problem Cardiac murmur, unspecified R01.1 Active 08608972 Problem Encounter for supervision of other normal , second trimester Z34.82 Active 38100037 Problem Radiation exposure affecting in second trimester O09.892 Active 021887976 ALLERGIES No Information ENCOUNTERS Encounter Location Date Diagnosis [facility] [id number] [place] [id number] Sep, Encounter for supervision of other normal , second trimester Z34.82 ; Radiation exposure affecting in second trimester O09.892 ; Low lying placenta NOS or without hemorrhage, second trimester O44.42 ; Cellulitis of left upper extremity L03.114 and Cellulitis of left finger L03.[address] [address] [id number] [place] [id number] Sep, Encounter for supervision of other normal , second trimester Z34.82 ; Interstitial cystitis (chronic) with hematuria N30.11 ; Obesity complicating , second trimester O99.212 ; Radiation exposure affecting in second trimester O09.892 and Low lying placenta NOS or without hemorrhage, second trimester O44.42 [facility] [address] [id number] [place] [address] Sep, Dysuria R30.0 [facility] [employer] [address] [id number][place] [id number] Sep, Dysuria R30.0 and Other specified related conditions, second trimester O26.892 [facility] [employer] [address] [id number], [place] [id number] August, [facility] [employer] [address] [place] [address] AVE [id number], [place] [id number] August, Encounter for supervision of other normal , second trimester Z34.82 ; Obesity complicating , second trimester O99.212 ; Radiation exposure affecting in second trimester O09.892 ; Chronic GERD K21.9 ; Family history of other congenital malformations, deformations and chromosomal abnormalities Z82.79 and Cardiac murmur, unspecified R01.1 [facility] [employer] [address] [id number], [place] [id number] Jul, Encounter for supervision of other normal , first trimester Z34.81 ; Obesity complicating , first trimester O99.211 and Radiation exposure affecting in first trimester O09.891 [facility] [employer] [address] [id number], [place] [id number] Jul, Urinary tract infection N39.0 and UTI (urinary tract infection) in in first trimester O23.41 [facility] [address] [id number], [place] [id number] Jun, Encounter for supervision of other normal , first trimester Z34.81 [facility] [address] [address] [id number], [place] [id number] 12 Mar, 2018 Encounter for supervision of other normal , first trimester Z34.81 ; Radiation exposure affecting in first trimester O09.891 ; Family history of other congenital malformations, deformations and chromosomal abnormalities Z82.79 ; Cardiac murmur, unspecified R01.1 and Obesity complicating in first trimester O99.211 [facility] [employer] [address] [place] [address] AVE [id number], [place] [id number] 12 May, 2017 Positive test Z32.01 [facility] [employer] [address] [place] [address] AVE [id number], [place] [id number] 12 May, 2017 Less than 8 weeks gestation of Z3A.01 [facility] [employer] [address] [place] [address] [id number] [place] [id number] 12 May, 2017 [facility] [employer] [address] [place] [address] [id number] [place] [id number] May, PCOS (polycystic ovarian syndrome) E28.2 [facility] [employer] [address] [place] [address] AVE [id number], [place] [id number] May, PCOS (polycystic ovarian syndrome) E28.2 [facility] [address] [place] [address] AV [id number], [place] [id number] May, PCOS (polycystic ovarian syndrome) E28.2 [facility] [address] [place] [address] AV [id number], [place] [id number] Apr, [facility] [address] [place] [address] [place] [id number], [place] [id number] Apr, [facility] [address] [place] [address] A[address] [id number], [place] [id number] Apr, Obesity (BMI 30.0-34.9) E66.9 ; Cardiac murmur, previously undiagnosed R01.1 ; Chronic GERD K21.9 ; Other chronic pain G89.29 ; Pain in left shoulder M25.512 ; Pain in right shoulder M25.511 ; History of abnormal cervical Pap smear Z87.898 and Encounter to establish care Z76.89 [facility] [address] [id number], [place] [id number] Apr, Encounter for Nexplanon removal Z30.46 [facility] [address] [id number], [place] [id number] Feb, Visit for TB skin test Z11.1 and Encounter for immunization Z23 [facility] [address] [address] 30 Oct, 2014 Nexplanon insertion V25.5 [facility] [id number] [place] [address] 14 Oct, 2014 General counseling and advice for contraceptive management V25.09 [facility] [id number] [place] [address] 16 Sep, 2014 Routine follow-up V24.2 [facility] [address] [place] [address] 28 Jul, 2014 Supervision of other normal V22.1 [facility] [id number] [place] [address] 14 Jul, 2014 [facility] [id number] [place] [address] Jul, [facility] [id number] [place] [address] Jun, [facility] [address] [address] Jun, [facility] [address] [address] Jun, [facility] [address] [address] Jun, [facility] [id number] [place] [address] May, [facility] [address] [address] May, [facility] [address] [id number] [address] 17 May, 2014 [facility] [address] [id number] [place] [address] May, 2014 [facility] [place] [facility] [address] [id number] [place] [address] May, 2014 [facility] [address] [id number] [place] [address] May, 2014 [facility] [place] [facility] [address] [id number] [place] [address] Apr, [facility] [address] [id number] [place] [address] Apr, [facility] [address] [id number] [place] [address] Apr, [facility] [address] [facility] [id number] [place] [address] Apr, [facility] [address] [id number] [place] [address] Mar, [facility] [place] [facility] [address] [id number] [place] [address] Mar, [facility] [address] [facility] [id number] [place] [address] Mar, [facility] [place] [facility] [address] [id number] [place] [address] Mar, [facility] [place] [facility] [address] [id number] [place] [address] Mar, [facility] [place] [facility] [address] [id number] [place] Mar, [facility] [place] [facility] [address] [id number] [place] [address] Mar, [facility] [place] [facility] [address] [facility] [id number] [place] Mar, [facility] [place] [facility] [address] [id number] [place] [address] Mar, [facility] [place] [facility] [address] [id number] [place] Mar, [facility] [place] [facility] [address] [id number] [place] Jan, [facility] [place] [facility] [address] [id number] [place] [address] Jan, [facility] [place] [facility] [address] [id number] [place] Jan, [facility] [place] [facility] [address] [id number] [place] [address] Jan, [facility] [place] [facility] [address] [id number] [place] [address]- 1665 Jan, [facility] [place] [facility] [address] [id number] [place] [address] Jan, [facility] [place] [facility] [address] [id number] [place] [address]- 7103 Jan, [facility] [place] [facility] [address] [id number] [address] Jan, [facility] [place] [facility] [address] [id number] [place] [address] Jan, [facility] [place] [facility] [address] [id number] [place] [address] Jan, [facility] [place] [facility] [address] [id number] [place] [address] Dec, [facility] [place] [facility] [address] [id number] [place] [address] 23 Dec, 2013 [facility] [place] [facility] [address] [id number] [place] [address] 16 Dec, 2013 [facility] [place] [facility] [address] [id number] [place] [address] 16 Dec, 2013 [facility] [address] [address] Dec, [facility] [address] [address] Dec, [facility] [address] [address] Dec, [facility] [id number] [place] [address]- 7668 Dec, [facility] [id number] [place] [address]- [address]15 Dec, [facility] [id number] [place] [address]- [address] Dec, [facility] [id number] [place] [address]- 8989 Dec, [facility] [address] [address] Dec, [facility] [id number] [place] [address]- [address] Dec, [facility] [address] [address] Dec, [facility] [address] [address]10 Dec, [facility] [address] [address] Nov, [facility] [address] [address] Nov, IMMUNIZATIONS No Known Immunizations SOCIAL HISTORY Never Assessed REASON FOR VISIT glucose testing PLAN OF CARE VITAL SIGNS MEDICATIONS Medication Instructions Dosage Frequency Start Date End Date Duration Status Vitamin 27-0.8 MG Orally Once a day 1 tablet 24h May, 90 days Active RESULTS No Results PROCEDURES No Known procedures INSTRUCTIONS MEDICATIONS ADMINISTERED No Known Medications MEDICAL (GENERAL) HISTORY Type Description Date Medical 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
--- OUTSIDE RECORDS SUMMARY | 2018-01-16 05:54 | XMS REPORT ---
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 Name Role Phone MARY CHAVEZ Unavailable PROBLEMS Type Condition ICD9-CM Code AYR52-UY Code Onset Dates Condition Status SNOMED Code Problem Obesity (BMI 30.0-34.9) E66.9 Active [id number] Problem PCOS (polycystic ovarian syndrome) E28.2 Active 11931520 Problem Chronic GERD K21.9 Active 551505125 Problem Low lying placenta NOS or without hemorrhage, second trimester O44.42 Active 218628238 Problem Pain in left shoulder M25.512 Active 77550697 Problem Pain in right shoulder M25.511 Active 53272520 Problem Other chronic pain G89.29 Active 28894581 Problem Interstitial cystitis (chronic) with hematuria N30.11 Active 677762074 Problem Obesity complicating , second trimester O99.212 Active 199347145400 Problem Family history of other congenital malformations, deformations and chromosomal abnormalities Z82.79 Active 481483447 Problem Cardiac murmur, unspecified R01.1 Active 63800095 Problem Encounter for supervision of other normal , second trimester Z34.82 Active 25138242 Problem Radiation exposure affecting in second trimester O09.892 Active 685617170 ALLERGIES No Information ENCOUNTERS Encounter Location Date Diagnosis [facility] [id number] [place] [id number] Sep, Encounter for supervision of other normal , second trimester Z34.82 ; Radiation exposure affecting in second trimester O09.892 ; Low lying placenta NOS or without hemorrhage, second trimester O44.42 ; Cellulitis of left upper extremity L03.114 and Cellulitis of left finger L03.[address] [address] [id number] [place] [id number] Sep, Encounter for supervision of other normal , second trimester Z34.82 ; Interstitial cystitis (chronic) with hematuria N30.11 ; Obesity complicating , second trimester O99.212 ; Radiation exposure affecting in second trimester O09.892 and Low lying placenta NOS or without hemorrhage, second trimester O44.42 [facility] [address] [id number] [place] [address] Sep, Dysuria R30.0 [facility] [email or web address] [id number], [place] [id number] Sep, Dysuria R30.0 and Other specified related conditions, second trimester O26.892 [facility] [email or web address] [id number], [place] [id number] August, [facility] ERNST [employer] [place] [address] AVE [id number], [place] [id number] August, Encounter for supervision of other normal , second trimester Z34.82 ; Obesity complicating , second trimester O99.212 ; Radiation exposure affecting in second trimester O09.892 ; Chronic GERD K21.9 ; Family history of other congenital malformations, deformations and chromosomal abnormalities Z82.79 and Cardiac murmur, unspecified R01.1 [facility] [address] [employer] [address] [id number][place] [id number] Jul, Encounter for supervision of other normal , first trimester Z34.81 ; Obesity complicating , first trimester O99.211 and Radiation exposure affecting in first trimester O09.891 [facility] [email or web address] [id number], [place] [id number] Jul, Urinary tract infection N39.0 and UTI (urinary tract infection) in in first trimester O23.41 [email or web address] [id number][place] [id number] Jun, Encounter for supervision of other normal , first trimester Z34.81 [facility] [email or web address] [id number][place] [id number] 12 Mar, 2018 Encounter for supervision of other normal , first trimester Z34.81 ; Radiation exposure affecting in first trimester O09.891 ; Family history of other congenital malformations, deformations and chromosomal abnormalities Z82.79 ; Cardiac murmur, unspecified R01.1 and Obesity complicating in first trimester O99.211 [facility] 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 [employer] [place] [address] AVE [id number], [place] [id number] 12 May, 2017 Positive test Z32.01 [facility] [employer] [place] [address] AVE [id number], [place] [id number] 12 May, 2017 Less than 8 weeks gestation of Z3A.01 [facility] [employer] [place] [address] [address]VE [id number] [place] [id number] 12 May, 2017 [facility] [employer] [place] [address] AVA[facility] [id number] [place] [id number] May, PCOS (polycystic ovarian syndrome) E28.2 [facility] [employer] [place] [address] AVE [id number], [place] [id number] May, PCOS (polycystic ovarian syndrome) E28.2 [facility] [employer] [place] [address] AV [id number], [place] [id number] May, PCOS (polycystic ovarian syndrome) E28.2 [facility] [employer] [place] [address] AV [id number], [place] [id number] Apr, [facility] [employer] [place] [address] AV [id number], [place] [id number] Apr, [facility] [employer] [place] [address] AVE [id number], [place] [id number] Apr, Obesity (BMI 30.0-34.9) E66.9 ; Cardiac murmur, previously undiagnosed R01.1 ; Chronic GERD K21.9 ; Other chronic pain G89.29 ; Pain in left shoulder M25.512 ; Pain in right shoulder M25.511 ; History of abnormal cervical Pap smear Z87.898 and Encounter to establish care Z76.89 [facility] [email or web address] [id number], [place] [id number] Apr, Encounter for Nexplanon removal Z30.46 [facility] [id number] [id number], [place] [id number] Feb, Visit for TB skin test Z11.1 and Encounter for immunization Z23 [facility] [address], [place] [address] 30 Oct, 2014 Nexplanon insertion V25.5 [facility] [id number] [place] [address] 14 Oct, 2014 General counseling and advice for contraceptive management V25.09 [facility] [id number] [place] [address] 16 Sep, 2014 Routine follow-up V24.2 [facility] [address] [place] [address] 28 Jul, 2014 Supervision of other normal V22.1 [facility] [id number] [place] [address] 1266 14 Jul, 2014 [facility] [address] [place] [address] Jul, [facility] [address] [place] [address] Jun, [facility] [address], [place] [address] Jun, [facility] [address], [place] [address] Jun, [facility] [address]65[address], [place] [address] Jun, [facility] [id number] [place] [address] May, [facility] [address], [place] [address] May, [facility] [address] [id number] [place] [address] 17 May, 2014 [facility] [address] [id number] [place] [address] May, 2014 [facility] [place] [facility] [address] [id number] [place] [address] May, 2014 [facility] [address] [id number] [place] [address] May, 2014 [facility] [place] [facility] [address] [id number] [place] [address] Apr, [facility] [address] [id number] [place] [address] Apr, [facility] [address] [id number] [place] [address] Apr, [facility] [address] [facility] [id number] [place] [address] Apr, [facility] [address] [id number] [place] [address] Mar, [facility] [place] [place] [facility] [address] [id number] [place] [address] Mar, [facility] [address] [facility] [id number] [place] [address] Mar, [facility] [place] [place] [facility] [address] [id number] [place] [address] Mar, [facility] [place] [facility] [address] [id number] [place] [address] Mar, [facility] [place] [facility] [address] [id number] [place] [address] Mar, [facility] [place] [facility] [address] [id number] [place] [address] Mar, [facility] [place] [facility] [address] [facility] [id number] [place] [address] Mar, [facility] [place] [facility] [address] [id number] [place] [address]996 Mar, [facility] [place] [facility] [address] [id number] [place] Mar, [facility] [place] [facility] [address] [id number] [place] Jan, [facility] [place] [facility] [address] [id number] [place] [address] Jan, [facility] [place] [facility] [address] [id number] [place] [address]- [address] Jan, [facility] [place] [facility] [address] [id number] [place] [address]- 0548 Jan, [facility] [place] [facility] [address] [id number] [place] [address]- 4415 Jan, [facility] [place] [facility] [address] [id number] [place] [address]- 53[address] Jan, [facility] [place] [facility] [address] [id number] [place] [address]- 5931 Jan, [facility] [place] [facility] [address] [id number], [place] [address]- 6364 Jan, [facility] [place] [facility] [address] [id number], [place] [address]- 3534 Jan, [facility] [place] [facility] [address] [id number], [place] [address]- 3179 Jan, [facility] [place] [facility] [address] [id number] [place] [address]- [address]81 Dec, [facility] [place] [facility] [address] [id number] [place]- [address] 23 Dec, 2013 [facility] [place] [facility] [address] [id number], [place] [address] 16 Dec, 2013 [facility] [place] [facility] [address] [id number], [place] [address] 16 Dec, 2013 [facility] [address], [place] [address] Dec, [facility] [address], [place] [address] Dec, [facility] [address], [place] [address]265 Dec, [facility] [address], [place] [address]284 Dec, [facility] [address], [place] [address] Dec, [facility] [address], [place] [address] Dec, [facility] [address], [place] [address] 1136 Dec, [facility] [address], [place] [address]- [address] Dec, [facility] [address], [place] [address]- 9096 Dec, [facility] [address], [place] [address]- [address] Dec, [facility] [address], [place] [address] Dec, [facility] [address] [id number], [place] [address] Nov, [facility] [address] [id number], [place] [address] Nov, IMMUNIZATIONS No Known Immunizations SOCIAL HISTORY Never Assessed REASON FOR VISIT results PLAN OF CARE VITAL SIGNS MEDICATIONS Unknown Medications RESULTS No Results PROCEDURES No Known procedures INSTRUCTIONS MEDICATIONS ADMINISTERED No Known Medications MEDICAL (GENERAL) HISTORY Type Description Date Medical 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
--- OUTSIDE RECORDS SUMMARY | 2018-01-16 05:54 | XMS REPORT ---
Author Author MARY CHAVEZ [facility] Address [address] [place] [address] Care Team Providers Care Aoc Director Combat Plans Officer Name Role Phone MARY CHAVEZ Unavailable PROBLEMS Type Condition ICD9-CM Code OTO24-TU Code Onset Dates Condition Status SNOMED Code Problem Obesity (BMI 30.0-34.9) E66.9 Active [id number] Problem PCOS (polycystic ovarian syndrome) E28.2 Active 16917166 Problem Chronic GERD K21.9 Active 723455793 Problem Low lying placenta NOS or without hemorrhage, second trimester O44.42 Active 905532742 Problem Pain in left shoulder M25.512 Active 17648626 Problem Pain in right shoulder M25.511 Active 09134938 Problem Other chronic pain G89.29 Active 73545599 Problem Interstitial cystitis (chronic) with hematuria N30.11 Active 410212343 Problem Obesity complicating , second trimester O99.212 Active 907171626550 Problem Family history of other congenital malformations, deformations and chromosomal abnormalities Z82.79 Active 327176094 Problem Cardiac murmur, unspecified R01.1 Active 41659321 Problem Encounter for supervision of other normal , second trimester Z34.82 Active 35573273 Problem Radiation exposure affecting in second trimester O09.892 Active 002128155 ALLERGIES No Information ENCOUNTERS Encounter Location Date Diagnosis [facility] [address] [id number] [place], [place] [id number] Sep, Encounter for supervision of other normal , second trimester Z34.82 ; Radiation exposure affecting in second trimester O09.892 ; Low lying placenta NOS or without hemorrhage, second trimester O44.42 ; Cellulitis of left upper extremity L03.114 and Cellulitis of left finger L03.[address] [facility] [address] [id number] [place] [id number] Sep, Encounter for supervision of other normal , second trimester Z34.82 ; Interstitial cystitis (chronic) with hematuria N30.11 ; Obesity complicating , second trimester O99.212 ; Radiation exposure affecting in second trimester O09.892 and Low lying placenta NOS or without hemorrhage, second trimester O44.42 [facility] [address] [id number] [place] [address] Sep, Dysuria R30.0 [facility] [address] [id number] [place] [id number] Sep, Dysuria R30.0 and Other specified related conditions, second trimester O26.892 [facility] [address] [id number] [place], [place] [id number] August, [facility] [employer] [place] [address] AVE [id number] [place] [id number] August, Encounter for supervision of other normal , second trimester Z34.82 ; Obesity complicating , second trimester O99.212 ; Radiation exposure affecting in second trimester O09.892 ; Chronic GERD K21.9 ; Family history of other congenital malformations, deformations and chromosomal abnormalities Z82.79 and Cardiac murmur, unspecified R01.1 [facility] [address] [id number] [place] [id number] Jul, Encounter for supervision of other normal , first trimester Z34.81 ; Obesity complicating , first trimester O99.211 and Radiation exposure affecting in first trimester O09.891 [facility] [address] [id number] [place] [id number] Jul, Urinary tract infection N39.0 and UTI (urinary tract infection) in in first trimester O23.41 [facility] [address] [id number] [place] [id number] Jun, Encounter for supervision of other normal , first trimester Z34.81 [facility] [address] [id number] [place] [id number] 12 Mar, 2018 Encounter for supervision of other normal , first trimester Z34.81 ; Radiation exposure affecting in first trimester O09.891 ; Family history of other congenital malformations, deformations and chromosomal abnormalities Z82.79 ; Cardiac murmur, unspecified R01.1 and Obesity complicating in first trimester O99.211 [facility] [employer] [place] [address] AVE [id number] [place] [id number] 12 May, 2017 Positive test Z32.01 [facility] [place] [address] AVE [id number] [place] [id number] 12 May, 2017 Less than 8 weeks gestation of Z3A.01 [facility] [employer] [place] [address] [id number] [place] [id number] 12 May, 2017 [facility] [employer] [place] [address] [id number] [place] [id number] May, PCOS (polycystic ovarian syndrome) E28.2 [facility] [employer] [place] [address] AVE [id number] [place] [id number] May, PCOS (polycystic ovarian syndrome) E28.2 [facility] [place] [address] AV [id number] [place] [id number] May, PCOS (polycystic ovarian syndrome) E28.2 [facility] [employer] [place] [address] AV [id number] [place], [place] [id number] Apr, [facility] [employer] [place] [address] AV [id number] [place] [id number] Apr, [facility] [employer] [place] [address] AVE [id number] [place], [place] [id number] Apr, Obesity (BMI 30.0-34.9) E66.9 ; Cardiac murmur, previously undiagnosed R01.1 ; Chronic GERD K21.9 ; Other chronic pain G89.29 ; Pain in left shoulder M25.512 ; Pain in right shoulder M25.511 ; History of abnormal cervical Pap smear Z87.898 and Encounter to establish care Z76.89 [facility] [address] [id number] [place], [place] [id number] Apr, Encounter for Nexplanon removal Z30.46 [facility] [address]ERNST[address] [id number] [place] [id number] Feb, Visit for TB skin test Z11.1 and Encounter for immunization Z23 [facility] [address] [address] 30 Oct, 2014 Nexplanon insertion V25.5 [facility] [id number] [place] [address] 14 Oct, 2014 General counseling and advice for contraceptive management V25.09 [facility] [id number] [place] [address] 16 Sep, 2014 Routine follow-up V24.2 [facility] [id number] [place] [address] 28 Jul, 2014 Supervision of other normal V22.1 [facility] [id number] [place] [address]96 14 Jul, 2014 [facility] [address] [place] [address] Jul, [facility] [id number] [place] [address] Jun, [facility] [address]100[place], [place] [address] Jun, [facility] [address]100[place], [place] [address] Jun, [facility] [address], [place] [address] Jun, [facility] [id number] [place] [address] May, [facility] [address]100[place], [place] [address] May, [facility] [address] [id number] [address] 17 May, 2014 [facility] [address] [id number] [place] [address] May, 2014 [facility] [place] [facility] [address] [id number] [place] [address] May, 2014 [facility] [address] [id number] [place] [address] May, 2014 [facility] [place] [facility] [address] [id number] [place] [address] Apr, [facility] [address] [id number] [place] [address] Apr, [facility] [address] [id number] [place] [address] Apr, [facility] [address] [facility] [id number] [place] [address] Apr, [facility] [address] [id number] [place] [address] 42[address] Mar, [facility] [place] [facility] [address] [id number] [place] [address] Mar, [facility] [address] [facility] [id number] [place] [address] 8269 Mar, [facility] [place] [facility] [address] [id number] [place] [address]597 Mar, [facility] [place] [facility] [address] [id number] [place] [address] Mar, [facility] [place] [facility] [address] [id number] [place] [address] Mar, [facility] [place] [facility] [address] [id number] [place] [address] Mar, [facility] [place] [facility] [address] [facility] [id number] [place] [address] Mar, [facility] [place] [facility] [address] [id number] [place] [address] 8623 Mar, [facility] [place] [facility] [address] [id number] [place] [address]77 Mar, [facility] [place] [facility] [address] [id number] [place] [address] Jan, [facility] [place] [facility] [address] [id number] [place] [address] Jan, [facility] [place] [facility] [address] [id number] [place] [address] Jan, [facility] [place] [facility] [address] [id number] [place] [address]- [address]32 Jan, [facility] [place] [facility] [address] [id number] [place] [address]- 9[address] Jan, [facility] [place] [facility] [address] [id number] [place] [address]- 0480 Jan, [facility] [place] [facility] [address] [id number] [place] [address]- [address] Jan, [facility] [place] [facility] [address] [id number], [place] [address] Jan, [facility] [place] [facility] [address] [id number], [place] [address]- 4177 Jan, [facility] [place] [facility] [address] [id number], [place] [address]- [address] Jan, [facility] [place] [facility] [address] [id number] [place] [address]- [address] Dec, [facility] [place] [facility] [address] [id number] [place] [address] 23 Dec, 2013 [facility] [place] [facility] [address] [id number], [place] [address] 16 Dec, 2013 [facility] [place] [facility] [address] [id number], [place] [address]- [address] 16 Dec, 2013 [facility] [address], [place] [address] 12 Dec, 2013 [facility] [address], [place] [address]- [address] 12 Dec, 2013 [facility] [address], [place] [address] 10 Dec, 2013 [facility] [address], [place] [address] 10 Dec, 2013 [facility] [id number] [place] [address]- 1252 09 Dec, 2013 [facility] [address], [place] [address] 08 Dec, 2013 [facility] [address], [place] [address] 08 Dec, 2013 [facility] [address], [place] [address]- [address] Dec, 2013 [facility] [address], [place] [address] Dec, [facility] [address], [place] [address]- 77[address] Dec, [facility] [address], [place] [address] Dec, [facility] [address], [place] [address] Nov, [facility] [address], [place] [address] Nov, IMMUNIZATIONS No Known Immunizations SOCIAL HISTORY Never Assessed REASON FOR VISIT Lab (walk-in) Hubert BROWN PLAN OF CARE VITAL SIGNS MEDICATIONS Unknown Medications RESULTS No Results PROCEDURES Procedure Date Ordered Result Body Site ASSAY OF ESTRADIOL May 18, 2017 ASSAY OF PROGESTERONE May 18, 2017 VENIPUNCT, ROUTINE* May 18, 2017 ASSAY OF TOTAL TESTOSTERONE May 18, 2017 GONADOTROPIN (FSH) May 18, 2017 DEHYDROEPIANDROSTERONE May 18, 2017 ASSAY OF PROLACTIN May 18, 2017 GONADOTROPIN (LH) May 18, 2017 INSTRUCTIONS MEDICATIONS ADMINISTERED No Known Medications MEDICAL (GENERAL) HISTORY Type Description Date Medical 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
--- OUTSIDE RECORDS SUMMARY | 2018-01-16 05:54 | XMS REPORT ---
Author Author MARY CHAVEZ [facility] Address [address] [place] [address] Care Team Providers Care Hardwood Floor Sander Name Role Phone MARY CHAVEZ Unavailable PROBLEMS Type Condition ICD9-CM Code [id number]-GM Code Onset Dates Condition Status SNOMED Code Problem Obesity (BMI 30.0-34.9) E66.9 Active 895046888696353 Problem PCOS (polycystic ovarian syndrome) E28.2 Active 75436903 Problem Chronic GERD K21.9 Active 542974336 Problem Low lying placenta NOS or without hemorrhage, second trimester O44.42 Active 060563052 Problem Pain in left shoulder M25.512 Active 09428718 Problem Pain in right shoulder M25.511 Active 54025193 Problem Other chronic pain G89.29 Active 30584683 Problem Interstitial cystitis (chronic) with hematuria N30.11 Active 382589792 Problem Obesity complicating , second trimester O99.212 Active 858083026318 Problem Family history of other congenital malformations, deformations and chromosomal abnormalities Z82.79 Active 594879514 Problem Cardiac murmur, unspecified R01.1 Active 51192865 Problem Encounter for supervision of other normal , second trimester Z34.82 Active 66050185 Problem Radiation exposure affecting in second trimester O09.892 Active 475420178 ALLERGIES No Information ENCOUNTERS Encounter Location Date Diagnosis [facility] [address] [id number] [place] [id number] Sep, Encounter for supervision of other normal , second trimester Z34.82 ; Radiation exposure affecting in second trimester O09.892 ; Low lying placenta NOS or without hemorrhage, second trimester O44.42 ; Cellulitis of left upper extremity L03.114 and Cellulitis of left finger L03.012 [facility] [address] [id number] [place] [id number] Sep, Encounter for supervision of other normal , second trimester Z34.82 ; Interstitial cystitis (chronic) with hematuria N30.11 ; Obesity complicating , second trimester O99.212 ; Radiation exposure affecting in second trimester O09.892 and Low lying placenta NOS or without hemorrhage, second trimester O44.42 [facility] [address] [id number] [place] [address] Sep, Dysuria R30.0 [facility] [address] [id number][place] [id number] Sep, Dysuria R30.0 and Other specified related conditions, second trimester O26.892 [facility] [address] [id number][place] [id number] August, [facility] [address] [place] [address] AVE [id number][place] [id number] August, Encounter for supervision of other normal , second trimester Z34.82 ; Obesity complicating , second trimester O99.212 ; Radiation exposure affecting in second trimester O09.892 ; Chronic GERD K21.9 ; Family history of other congenital malformations, deformations and chromosomal abnormalities Z82.79 and Cardiac murmur, unspecified R01.1 [facility] [address] [id number][place] [id number] Jul, Encounter for supervision of other normal , first trimester Z34.81 ; Obesity complicating , first trimester O99.211 and Radiation exposure affecting in first trimester O09.891 [facility] [address] [id number], [place] [id number] Jul, Urinary tract infection N39.0 and UTI (urinary tract infection) in in first trimester O23.41 [facility] [address] [id number], [place] [id number] Jun, Encounter for supervision of other normal , first trimester Z34.81 [facility] [address] [id number][place] [id number] 12 Mar, 2018 Encounter for supervision of other normal , first trimester Z34.81 ; Radiation exposure affecting in first trimester O09.891 ; Family history of other congenital malformations, deformations and chromosomal abnormalities Z82.79 ; Cardiac murmur, unspecified R01.1 and Obesity complicating in first trimester O99.211 [facility] [address] [place] [address] AVE [id number][place] [id number] 12 May, 2017 Positive test Z32.01 [facility] [address] [place] [address] AVE [id number], [place] [id number] 12 May, 2017 Less than 8 weeks gestation of Z3A.01 [facility] [address] [place] [address] [id number] [place] [id number] 12 May, 2017 [facility] [address] [place] [address] AV[id number] [place] [id number] May, PCOS (polycystic ovarian syndrome) E28.2 [facility] [address] [place] [address] AVE [id number], [place] [id number] May, PCOS (polycystic ovarian syndrome) E28.2 [facility] [address] [place] [address] AV [id number], [place] [id number] May, PCOS (polycystic ovarian syndrome) E28.2 [facility] [address] [place] [address] AV [id number], [place] [id number] Apr, [facility] [address] [place] [address] AV [id number], [place] [id number] Apr, [facility] [address] [place] [address] AVE [id number], [place] [id number] Apr, Obesity (BMI 30.0-34.9) E66.9 ; Cardiac murmur, previously undiagnosed R01.1 ; Chronic GERD K21.9 ; Other chronic pain G89.29 ; Pain in left shoulder M25.512 ; Pain in right shoulder M25.511 ; History of abnormal cervical Pap smear Z87.898 and Encounter to establish care Z76.89 [facility] [address] [id number], [place] [id number] Apr, Encounter for Nexplanon removal Z30.46 [facility] [address]PSERNST[address] [id number], [place] [id number] Feb, Visit for TB skin test Z11.1 and Encounter for immunization Z23 [facility] [address]00565100[place], [place] [address] 30 Oct, 2014 Nexplanon insertion V25.5 [facility] [id number] [place] [address] 14 Oct, 2014 General counseling and advice for contraceptive management V25.09 [facility] [id number] [place] [address] 16 Sep, 2014 Routine follow-up V24.2 [facility] [id number] [place] [address] 3680 28 Jul, 2014 Supervision of other normal V22.1 [facility] [id number] [place] [address] 14 Jul, 2014 [facility] [id number] [place] [address] Jul, [facility] [id number] [place] [address] Jun, [facility] [address]00565100[place], [place] [address] Jun, [facility] [address]00565100[place], [place] [address] Jun, [facility] [address]65100[place], [place] [address] Jun, [facility] [id number] [place] [address] May, [facility] [address]65100[place], [place] [address] May, [facility] [address] [id number] [place] [address] 17 May, 2014 [facility] [address] [id number] [place] [address] May, 2014 [facility] [place] [facility] [address] [id number] [place] [address] May, 2014 [facility] [address] [id number] [place] [address] May, 2014 [facility] [place] [facility] [address] [id number] [place] [address] Apr, [facility] [address] [id number] [place] [address] Apr, [facility] [address] [id number] [place] [address] Apr, [facility] [address] [facility] [id number] [place] [address] Apr, [facility] [address] [id number] [place] [address] Mar, [facility] [place] [facility] [address] [id number] [place] [address] Mar, [facility] [address] [facility] [id number] [place] [address] Mar, [facility] [place] [facility] [address] [id number] [place] [address] Mar, [facility] [place] [facility] [address] [id number] [place] [address] Mar, [facility] [place] [facility] [address] [id number] [place] [address] Mar, [facility] [place] [facility] [address] [id number] [place] [address] Mar, [facility] [place] [facility] [address] [facility] [id number] [place] [address] Mar, [facility] [place] [facility] [address] [id number] [place] [address] Mar, [facility] [place] [facility] [address] [id number] [place] [address] Mar, [facility] [place] [facility] [address] [id number] [place] [address] Jan, [facility] [place] [facility] [address] [id number] [place] [address] Jan, [facility] [place] [facility] [address] [id number] [place] [address] Jan, [facility] [place] [facility] [address] [id number] [place] [address]- 9065 Jan, [facility] [place] [facility] [address] [id number] [place] [address]- 5969 Jan, [facility] [place] [facility] [address] [id number] [place] [address] 6[address] Jan, [facility] [place] [facility] [address] [id number] [place] [address]- 9428 Jan, [facility] [place] [facility] [address] [id number], [place] [address] Jan, [facility] [place] [facility] [address] [id number], [place] [address] Jan, [facility] [place] [facility] [address] [id number], [place] [address] Jan, [facility] [place] [facility] [address] [id number] [place] [address]- [address] Dec, [facility] [place] [facility] [address] [id number] [place] [address] 23 Dec, 2013 [facility] [place] [facility] [address] [id number], [place] [address] 16 Dec, 2013 [facility] [place] [facility] [address] [id number], [place] [address] 16 Dec, 2013 [facility] [address]100[place], [place] [address] Dec, [facility] [address]65100[place], [place] [address] Dec, [facility] [address]100[place], [place] [address] Dec, [facility] [address]100[place], [place] [address] Dec, [facility] [address]100[place], [place] [address] Dec, [facility] [address], [place] [address] Dec, [facility] [address]65100[place], [place] [address] Dec, [facility] [address], [place] [address] Dec, [facility] [address], [place] [address] Dec, [facility] [address]65100[place], [place] [address] Dec, [facility] [address], [place] [address] Dec, [facility] [address] [id number], [place] [address] Nov, [facility] [address] [id number], [place] [address] Nov, IMMUNIZATIONS No Known Immunizations SOCIAL HISTORY Never Assessed REASON FOR VISIT Future Lab Orders PLAN OF CARE VITAL SIGNS MEDICATIONS Unknown Medications RESULTS No Results PROCEDURES No Known procedures INSTRUCTIONS MEDICATIONS ADMINISTERED No Known Medications MEDICAL (GENERAL) HISTORY Type Description Date Medical 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
--- OUTSIDE RECORDS SUMMARY | 2018-01-16 05:54 | XMS REPORT ---
Author Author MARY CHAVEZ [facility] Address [address] [place] [address] Care Team Providers Care Color Maker Name Role Phone MARY CHAVEZ Unavailable PROBLEMS Type Condition ICD9-CM Code AWB29-IX Code Onset Dates Condition Status SNOMED Code Problem Obesity (BMI 30.0-34.9) E66.9 Active [id number] Problem PCOS (polycystic ovarian syndrome) E28.2 Active 03823151 Problem Chronic GERD K21.9 Active 047374280 Problem Low lying placenta NOS or without hemorrhage, second trimester O44.42 Active 024071933 Problem Pain in left shoulder M25.512 Active 51460650 Problem Pain in right shoulder M25.511 Active 49797162 Problem Other chronic pain G89.29 Active 00664460 Problem Interstitial cystitis (chronic) with hematuria N30.11 Active 247968062 Problem Obesity complicating , second trimester O99.212 Active 054886631308 Problem Family history of other congenital malformations, deformations and chromosomal abnormalities Z82.79 Active 041677897 Problem Cardiac murmur, unspecified R01.1 Active 75953000 Problem Encounter for supervision of other normal , second trimester Z34.82 Active 75532380 Problem Radiation exposure affecting in second trimester O09.892 Active 838525747 ALLERGIES No Information ENCOUNTERS Encounter Location Date Diagnosis [facility] [id number] [place] [id number] Sep, Encounter for supervision of other normal , second trimester Z34.82 ; Radiation exposure affecting in second trimester O09.892 ; Low lying placenta NOS or without hemorrhage, second trimester O44.42 ; Cellulitis of left upper extremity L03.114 and Cellulitis of left finger L03.012 [facility] [id number] [place] [id number] Sep, Encounter for supervision of other normal , second trimester Z34.82 ; Interstitial cystitis (chronic) with hematuria N30.11 ; Obesity complicating , second trimester O99.212 ; Radiation exposure affecting in second trimester O09.892 and Low lying placenta NOS or without hemorrhage, second trimester O44.42 [facility] [address] [id number] [place] [address] Sep, Dysuria R30.0 [facility] [address] [id number] [id number] Sep, Dysuria R30.0 and Other specified related conditions, second trimester O26.892 [facility] [address] [id number], [place] [id number] August, [facility] [address] [place] [address] AVE [id number][place] [id number] August, Encounter for supervision of other normal , second trimester Z34.82 ; Obesity complicating , second trimester O99.212 ; Radiation exposure affecting in second trimester O09.892 ; Chronic GERD K21.9 ; Family history of other congenital malformations, deformations and chromosomal abnormalities Z82.79 and Cardiac murmur, unspecified R01.1 [facility] [address] [id number], [place] [id number] Jul, Encounter for supervision of other normal , first trimester Z34.81 ; Obesity complicating , first trimester O99.211 and Radiation exposure affecting in first trimester O09.891 [facility] [address] [id number][place] [id number] Jul, Urinary tract infection N39.0 and UTI (urinary tract infection) in in first trimester O23.41 [facility] [address] [id number][place] [id number] Jun, Encounter for supervision of other normal , first trimester Z34.81 [facility] [address] [id number], [place] [id number] 12 Mar, 2018 Encounter for supervision of other normal , first trimester Z34.81 ; Radiation exposure affecting in first trimester O09.891 ; Family history of other congenital malformations, deformations and chromosomal abnormalities Z82.79 ; Cardiac murmur, unspecified R01.1 and Obesity complicating in first trimester O99.211 [facility]NST [address] [place] [address] AVE [id number], [place] [id number] 12 May, 2017 Positive test Z32.01 [facility] [address] [place] [address] AVE [id number], [place] [id number] 12 May, 2017 Less than 8 weeks gestation of Z3A.01 [facility] [address] [place] [address] [id number] [place] [id number] 12 May, 2017 [facility] [address] [place] [address] AVMary [id number] [place] [id number] May, PCOS (polycystic ovarian syndrome) E28.2 [facility] [address] [place] [address] AVE [id number], [place] [id number] May, PCOS (polycystic ovarian syndrome) E28.2 [facility] [address] [place] [address] AV [id number], [place] [id number] May, PCOS (polycystic ovarian syndrome) E28.2 [facility] [address] [place] [address] AV [id number], [place] [id number] Apr, [facility] [address] [place] [address] AV [id number], [place] [id number] Apr, [facility] [address] [place] [address] AVE [id number], [place] [id number] Apr, Obesity (BMI 30.0-34.9) E66.9 ; Cardiac murmur, previously undiagnosed R01.1 ; Chronic GERD K21.9 ; Other chronic pain G89.29 ; Pain in left shoulder M25.512 ; Pain in right shoulder M25.511 ; History of abnormal cervical Pap smear Z87.898 and Encounter to establish care Z76.89 [facility] [address] [id number], [place] [id number] Apr, Encounter for Nexplanon removal Z30.46 [facility] [address]ERN[address] [id number], [place] [id number] Feb, Visit for TB skin test Z11.1 and Encounter for immunization Z23 [facility] [address] [place] [address] 30 Oct, [address] [facility] [id number] [place] [address] 14 Oct, 2014 General counseling and advice for contraceptive management V25.09 [facility] [id number] [place] [address] 16 Sep, 2014 Routine follow-up V24.2 [facility] [address] [place] [address] 28 Jul, 2014 Supervision of other normal V22.1 [facility] [id number] [place] [address]18 [address] Jul, [address] [facility] [address] [place] [address] Jul, [facility] [id number] [place] [address] Jun, [facility] [address] [place] [address] Jun, [facility] [address] [place] [address] Jun, [facility] [address] [place] [address] [address] Jun, [facility] [id number] [place] [address] May, [facility] [address] [place] [address] May, [facility] [address] [id number] [place] [address] 17 May, 2014 [facility] [address] [id number] [place] [address] May, 2014 [facility] [place] [facility] [address] [id number] [place] [address] May, 2014 [facility] [address] [id number] [place] [address] May, 2014 [facility] [place] [facility] [address] [id number] [place] [address] Apr, [facility] [address] [id number] [place] [address] Apr, [facility] [address] [id number] [place] [address] Apr, [facility] [address] [facility] [id number] [place] [address] Apr, [facility] [address] [id number] [place] [address] Mar, [facility] [place] [facility] [address] [id number] [place] [address] Mar, [facility] [address] [facility] [id number] [place] [address] Mar, [facility] [place] [facility] [address] [id number] [place] [address] Mar, [facility] [place] [facility] [address] [id number] [place] [address] Mar, [facility] [place] [facility] [address] [id number] [place] [address] Mar, [facility] [place] [facility] [address] [id number] [place] [address] Mar, [facility] [place] [facility] [address] [facility] [id number] [place] [address] Mar, [facility] [place] [facility] [address] [id number] [place] [address] Mar, [facility] [place] [facility] [address] [id number] [place] Mar, [facility] [place] [facility] [address] [id number] [place] [address] Jan, [facility] [place] [facility] [address] [id number] [place] [address] Jan, [facility] [place] [facility] [address] [id number] [place] [address] Jan, [facility] [place] [facility] [address] [id number] [place] [address] Jan, [facility] [place] [facility] [address] [id number] [place] [address]- [address]83 Jan, [facility] [place] [facility] [address] [id number] [place] [address]- 9587 Jan, [facility] [place] [facility] [address] [id number] [place] [address]- [address] Jan, [facility] [place] [facility] [address] [id number] [place] [address] Jan, [facility] [place] [facility] [address] [id number] [place] [address] Jan, [facility] [place] [facility] [address] [id number] [place] [address] Jan, [facility] [place] [facility] [address] [id number] [place] [address] Dec, [facility] [place] [facility] [address] [id number] [place] [address] 23 Dec, 2013 [facility] [place] [facility] [address] [id number] [place] [address] 16 Dec, 2013 [facility] [place] [facility] [address] [id number] [place] [address] [address], [address] [facility] [address] [place] [address] Dec, [facility] [address] [place] [address] Dec, [facility] [address] [place] [address] Dec, [facility] [address] [place] [address] Dec, [facility] [id number] [place] [address]- [address] Dec, [facility] [address] [place] [address] Dec, [facility] [id number] [place] [address]- 8322 Dec, [facility] [address] [place] [address] Dec, [facility] [id number] [place] [address]- 8100 Dec, [facility] [address] [place] [address] Dec, [facility] [address] [place] [address] Dec, [facility] [address] [place] [address] Nov, [facility] [address] [place] [address] Nov, IMMUNIZATIONS No Known Immunizations SOCIAL HISTORY Never Assessed REASON FOR VISIT New Prescription PLAN OF CARE VITAL SIGNS MEDICATIONS Medication Instructions Dosage Frequency Start Date End Date Duration Status Sprintec 28 0.25-35 MG-MCG Orally Once a day 1 tablet 24h May, 28 day(s) Active RESULTS No Results PROCEDURES No Known procedures INSTRUCTIONS MEDICATIONS ADMINISTERED No Known Medications MEDICAL (GENERAL) HISTORY Type Description Date Medical 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
--- OUTSIDE RECORDS SUMMARY | 2018-01-16 05:55 | XMS REPORT ---
Author Author MARY CHAVEZ [facility] Address [address] [place] [address] Care Team Providers Care Hris Administrator Name Role Phone MARY CHAVEZ Unavailable PROBLEMS Type Condition ICD9-CM Code QRO49-PO Code Onset Dates Condition Status SNOMED Code Problem Obesity (BMI 30.0-34.9) E66.9 Active 228852348628010 Problem PCOS (polycystic ovarian syndrome) E28.2 Active 70538987 Problem Chronic GERD K21.9 Active 170677865 Problem Low lying placenta NOS or without hemorrhage, second trimester O44.42 Active 912193940 Problem Pain in left shoulder M25.512 Active 69344515 Problem Pain in right shoulder M25.511 Active 51139892 Problem Other chronic pain G89.29 Active 12186247 Problem Interstitial cystitis (chronic) with hematuria N30.11 Active 135970015 Problem Obesity complicating , second trimester O99.212 Active 542093151263 Problem Family history of other congenital malformations, deformations and chromosomal abnormalities Z82.79 Active 225702534 Problem Cardiac murmur, unspecified R01.1 Active 10316829 Problem Encounter for supervision of other normal , second trimester Z34.82 Active 04518084 Problem Radiation exposure affecting in second trimester O09.892 Active 541238289 ALLERGIES No Known Allergies ENCOUNTERS Encounter Location Date Diagnosis [facility] [address] [id number] [place] [id number] Sep, [address] [id number] [place] [address] Sep, 2018 Encounter for supervision of other normal , second trimester Z34.82 ; Interstitial cystitis (chronic) with hematuria N30.11 ; Obesity complicating , second trimester O99.212 ; Radiation exposure affecting in second trimester O09.892 and Low lying placenta NOS or without hemorrhage, second trimester O44.42 [facility] [address] [id number] [place] [address] Sep, Dysuria R30.0 [facility] [address] [id number][place] [address] Sep, Dysuria R30.0 and Other specified related conditions, second trimester O26.892 [facility] KLEVER Stephens [facility] [address] [id number], [place] [id number] August, [facility] ERNST [address] [place] [address] AVE [id number], [place] [address] August, Encounter for supervision of other normal , second trimester Z34.82 ; Obesity complicating , second trimester O99.212 ; Radiation exposure affecting in second trimester O09.892 ; Chronic GERD K21.9 ; Family history of other congenital malformations, deformations and chromosomal abnormalities Z82.79 and Cardiac murmur, unspecified R01.1 [facility] KLEVER [address] [place] [address] AVE [id number], [place] [address] Jul, Encounter for supervision of other normal , first trimester Z34.81 ; Obesity complicating , first trimester O99.211 and Radiation exposure affecting in first trimester O09.891 [facility] [address] [id number][place] [address] Jul, Urinary tract infection N39.0 and UTI (urinary tract infection) in in first trimester O23.41 [facility] [address] [id number], [place] [address] Jun, Encounter for supervision of other normal , first trimester Z34.81 [facility] [address] [id number], [place] [address] Jun, Encounter for supervision of other normal , first trimester Z34.81 ; Radiation exposure affecting in first trimester O09.891 ; Family history of other congenital malformations, deformations and chromosomal abnormalities Z82.79 ; Cardiac murmur, unspecified R01.1 and Obesity complicating in first trimester O99.[address] [facility] [address] [id number], [place] [address] May, Positive test Z32.01 [facility] [address] [id number], [place] [address] May, Less than 8 weeks gestation of Z3A.01 [facility] [address] [id number], [place] [address] May, [facility] [address] [id number], [place] [address] May, PCOS (polycystic ovarian syndrome) E28.2 [facility] [address] [id number] [place] [id number] May, PCOS (polycystic ovarian syndrome) E28.2 [facility] [address] [place] [address] AVE [id number], [place] [id number] May, PCOS (polycystic ovarian syndrome) E28.2 [facility] [address] [place] [address] AVE [id number], [place] [address] Apr, [facility] [address] [place] [address] AVE [id number], [place] [address] Apr, [facility] [address] [place] [address] AVE [id number], [place] [address] Apr, Obesity (BMI 30.0-34.9) E66.9 ; Cardiac murmur, previously undiagnosed R01.1 ; Chronic GERD K21.9 ; Other chronic pain G89.29 ; Pain in left shoulder M25.512 ; Pain in right shoulder M25.511 ; History of abnormal cervical Pap smear Z87.898 and Encounter to establish care Z76.89 [facility] [address] [id number], [place] [address] Apr, Encounter for Nexplanon removal Z30.46 [facility] [employer] [place] [address] AVE [id number], [place] [address] Feb, Visit for TB skin test Z11.1 and Encounter for immunization Z23 [facility] [address]005[address] [address] 30 Oct, 2014 Nexplanon insertion V25.5 [facility] [address] [id number] [address] 14 Oct, 2014 General counseling and advice for contraceptive management V25.09 [facility] [id number] [place] [address]- 8550 16 Sep, 2014 Routine follow-up V24.2 [facility] [id number] [place] [address]- 7967 28 Jul, 2014 Supervision of other normal V22.1 [facility] [id number] [place] [address]277- 4844 14 Jul, 2014 [facility] [id number] [place] [address]23- 9073 Jul, [facility] [id number] [place] [address]239- 4239 Jun, [facility] [id number] [place] [address] 6[address]13- 7951 Jun, [facility] [id number] [place] [address] 79049- 5111 Jun, [facility] [address]00565100[place] [address] 2547 Jun, [facility] [address]00565100[place] [address] May, [facility] [address]00565100[place] [address] 4[address] May, [facility] [address]00565100[place] [address] 2105 May, [facility] [address]00565100[place] [address] 6[address] May, [facility] [address] [place] [address] May, [facility] [address] [id number] [place] [address] May, [facility] [place] [facility] [address] [id number] [place] [address]- 2446 Apr, [facility] [address] [id number] [place] [address]- 5036 Apr, [facility] [place] [facility] [address] [id number] [place] [address] 2544 Apr, [facility] [address] [id number] [place] [address]- 9145 Apr, [facility] [address] [id number] [place] [address] 7820 Mar, [facility] [place] [facility] [address] [id number] [place] [address]- 4545 Mar, [facility] [address] [id number] [place] [address]- 9135 Mar, [facility] [place] [facility] [address] [id number] [place] [address]- 0041 Mar, [facility] [address] [facility] [id number] [place] [address] Mar, [facility] [place] [facility] [address] [id number] [place] [address]- 0495 Mar, [facility] [place] [facility] [address] [id number] [place] [address]- 0132 Mar, [facility] [place] [facility] [address] [id number] [place] [address]- 2496 Mar, [facility] [place] [facility] [address] [id number] [place] [address]- 6566 Mar, [facility] [place] [facility] [address] [id number] [place] [address]- 8023 Mar, [facility] [place] [facility] [address] [id number] [place] [address]- 8248 Jan, [facility] [place] [facility] [address] [id number] [place] [address]- 4002 Jan, [facility] [place] [facility] [address] [id number] [place] [address]- 6280 Jan, [facility] [place] [facility] [address] [id number] [place] [address]- 2262 Jan, [facility] [place] [facility] [address] [id number] [place] [address]- 5328 Jan, [facility] [place] [facility] [address] [id number] [place] [address]- 1443 Jan, [facility] [place] [facility] [address] [id number] [place] [address]- 3571 Jan, [facility] [place] [facility] [address] [id number] [place] [address]- 3390 Jan, [facility] [place] [facility] [address] [id number] [place] [address]- 1441 Jan, [facility] [place] [facility] [address] [id number] [address]- 29[address] Jan, [facility] [place] [facility] [address] [id number] [address]- 1570 23 Dec, 2013 [facility] [place] [facility] [address] [id number] [address]- 5977 23 Dec, 2013 [facility] [place] [facility] [address] [id number] [place] [address]- 4179 16 Dec, 2013 [facility] [place] [facility] [address] [id number] [address]- 5602 16 Dec, 2013 [facility] [place] [facility] [address] [id number] [place] [address]- 3983 12 Dec, 2013 [facility] [place] [facility] [address]65[address] [address]- 5281 12 Dec, 2013 [facility] [address]65[address] [address]- 4113 10 Dec, 2013 [facility] [address]00565[address] [address]- 5769 10 Dec, 2013 [facility] [address]65[address] [address]- 6171 09 Dec, 2013 [facility] [address] [place] [address]6526- 7058 08 Dec, 2013 [facility] [address] [place] [address] 66426- 3680 Dec, 2013 [facility] [id number] [place] [address] 33787- 4556 Dec, 2013 [facility] [id number] [place] [address] 55188- 0768 Dec, 2013 [facility] [address] [place] [address] 01110- 5827 Dec, 2013 [facility] [id number] [place] [address] 16241- 4741 Dec, 2013 [facility] [address] [address]- 0044 Nov, [facility] [address] [address]- 0242 Nov, IMMUNIZATIONS No Known Immunizations SOCIAL HISTORY Never Assessed REASON FOR VISIT Nexplannon removal bferrisma PLAN OF CARE Activity Details Follow Up prn Reason: VITAL SIGNS Height 60 in 2017-04-18 Weight 159.0 lbs 2017-04-18 Temperature 98.3 degrees Fahrenheit 2017-04-18 Heart Rate 94 bpm 2017-04-18 Respiratory Rate 18 2017-04-18 BMI 31.05 kg/m2 2017-04-18 Blood pressure systolic 102 mmHg 2017-04-18 Blood pressure diastolic 78 mmHg 2017-04-18 MEDICATIONS Medication Instructions Dosage Frequency Start Date End Date Duration Status Vitamins (Dis) Not-Taking RESULTS No Results PROCEDURES Procedure Date Ordered Result Body Site REMOVE DRUG IMPLANT DEVICE Apr 18, 2017 INSTRUCTIONS MEDICATIONS ADMINISTERED No Known Medications MEDICAL (GENERAL) HISTORY Type Description Date Medical 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
--- OUTSIDE RECORDS SUMMARY | 2018-01-16 05:55 | XMS REPORT ---
Author Author CAMILLA SARAHY Organization [facility] Address [address] [place] [address] Care Team Providers Care Claims Service Representative Name Role Phone SCOOTER SAMPSONHANY Unavailable PROBLEMS Type Condition ICD9-CM Code NTD18-LW Code Onset Dates Condition Status SNOMED Code Problem Other chronic pain G89.29 Active 20096269 Problem Chronic GERD K21.9 Active 626446306 Problem Obesity (BMI 30.0-34.9) E66.9 Active 384390964150225 Problem Pain in left shoulder M25.512 Active 06491001 Problem Pain in right shoulder M25.511 Active 35328440 Problem Obesity complicating , second trimester O99.212 Active 455450547557 Problem Encounter for supervision of other normal , second trimester Z34.82 Active 02646021 Problem Cardiac murmur, unspecified R01.1 Active 11946065 Problem PCOS (polycystic ovarian syndrome) E28.2 Active 45913469 Problem Radiation exposure affecting in second trimester O09.892 Active 110501677 Problem Family history of other congenital malformations, deformations and chromosomal abnormalities Z82.79 Active 413622541 ALLERGIES No Information ENCOUNTERS Encounter Location Date Diagnosis [facility] [address] [id number] [place] [id number] Sep, [facility] [id number] [place] [id number] August, Encounter for supervision of other normal , second trimester Z34.82 ; Obesity complicating , second trimester O99.212 ; Radiation exposure affecting in second trimester O09.892 ; Chronic GERD K21.9 ; Family history of other congenital malformations, deformations and chromosomal abnormalities Z82.79 and Cardiac murmur, unspecified R01.1 [facility] [address] [id number] SHADE, [place] [id number] Jul, Encounter for supervision of other normal , first trimester Z34.81 ; Obesity complicating , first trimester O99.211 and Radiation exposure affecting in first trimester O09.891 [facility]ENTERAport[facility]Phoebe ER[address] [employer] [id number] [place] [address] Jul, Urinary tract infection N39.0 and UTI (urinary tract infection) in in first trimester O23.41 [facility] [address] [id number] [place] [address] Jun, Encounter for supervision of other normal , first trimester Z34.81 [facility]ENTERHandseeing InformationTER [address] [id number] [place]ADE[place] [address] Jun, Encounter for supervision of other normal , first trimester Z34.81 ; Radiation exposure affecting in first trimester O09.891 ; Family history of other congenital malformations, deformations and chromosomal abnormalities Z82.79 ; Cardiac murmur, unspecified R01.1 and Obesity complicating in first trimester O99.211 [facility]ENTERHandseeing InformationTER [address] [id number] [place]ADE[place] [address] May, Positive test Z32.01 [facility]ENTERHandseeing InformationTER [address] [id number] [place] [address] May, Less than 8 weeks gestation of Z3A.01 [facility]ENTERHandseeing InformationTER [employer] [address] [id number] [place], [place] [address] May, [employer]ov[employer] Surgical TechnologiesTER [address] [id number] [place] [address] May, PCOS (polycystic ovarian syndrome) E28.2 [facility] [address] [id number] [place] [id number] May, PCOS (polycystic ovarian syndrome) E28.2 [facility] [address] [id number] [place] [id number] May, PCOS (polycystic ovarian syndrome) E28.2 [facility] [id number] [place] [address] Apr, [facility] OHIOPhoebe EPPSERNST [address] [facility] [address] [id number] [place] [address] Apr, [facility] OHIOPhoebe Stephens [facility] [address] [id number] [place] [address] Apr, Obesity (BMI 30.0-34.9) E66.9 ; Cardiac murmur, previously undiagnosed R01.1 ; Chronic GERD K21.9 ; Other chronic pain G89.29 ; Pain in left shoulder M25.512 ; Pain in right shoulder M25.511 ; History of abnormal cervical Pap smear Z87.898 and Encounter to establish care Z76.[address] [id number] [place], [place] [address] Apr, Encounter for Nexplanon removal Z30.[address] [id number] SH[place] [address] Feb, Visit for TB skin test Z11.1 and Encounter for immunization Z23 [id number] [place] [address]96- 6136 Oct, Nexplanon insertion V25.5 [address] [address]- [address] Oct, General counseling and advice for contraceptive management V25.09 [id number] [place] [address]82- 2016 16 Sep, 2014 Routine follow-up V24.2 [id number] [place] [address] 21239- 1346 28 Jul, 2014 Supervision of other normal V22.1 [address] [address]- 4510 Jul, [address] 9[address]- 9140 Jul, [address] [address]- 1846 Jun, [facility] [place] [facility] [address] [id number] [place] [address]- 8015 Jun, [facility] [place] [facility] [address] [id number] [place] [address]- 3889 Jun, [facility] [place] [facility] [address] [id number] [place] [address]- 7427 Jun, [facility] [place] [facility] [address] [id number] [place] [address]- 4619 May, [facility] [place] [facility] [address] [id number] [place] [address]- 0591 May, [facility] [place] [facility] [address] [id number] [place] [address]- 6272 May, [facility] [place] [facility] [address] [id number] [place] [address]- 0807 May, [facility] [place] [facility] [address] [id number] [place] [address]- 0118 May, [facility] [place] [facility] [address] [id number] [place] [address]- 1089 May, [facility] [place] [facility] [address] [id number] [place] [address]- 5608 Apr, [facility] [place] [facility] [address] [id number] [place] [address]- 1446 Apr, [facility] [place] [facility] [address] [id number] [place] [address]- 8203 Apr, [facility] [place] [facility] [address] [id number] [place] [address]- 8051 Apr, [facility] [place] [facility] [address] [id number] [place] [address]- 3220 Mar, [facility] [place] [facility] [address] [id number] [place] [address]- 4936 Mar, [facility] [place] [facility] [address] [id number] [place] 9800 18 Mar, 2014 [facility] [place] [facility] [address] [id number] [place] [address]- 6997 18 Mar, 2014 [facility] [place] [facility] [address] [id number] [place] [address]- 1639 Mar, [facility] [place] [facility] [address] [id number] [place] 5509 Mar, [facility] [place] [facility] [address] [id number] [place] [address]- 9528 Mar, [facility] [place] [facility] [address] [id number] [place] [address]- 7268 05 Mar, 2014 [facility] [place] [facility] [address] [id number] [place] [address]- 5475 Mar, [facility] [place] [facility] [address] [id number] [place] [address]- 3642 Mar, [facility] [place] [facility] [address] [id number] [place] [address]- 7398 Jan, [facility] [place] [facility] [address] [id number] [place] [address]- 2016 Jan, [facility] [place] [facility] [address] [facility] [id number] [place] [address]- 0222 Jan, [facility] [place] [facility] [address] [id number] [place] [address]- 7258 Jan, [facility] [place] [facility] [address] [id number] [address]- 7725 Jan, [facility] [place] [facility] [address] [id number] [place] [address]- 3233 Jan, [facility] [place] [facility] [address] [facility] [id number] [place] [address]- 1992 Jan, [facility] [place] [facility] [address] [facility] [id number] [place]- 8490 Jan, [facility] [place] [facility] [address] [id number] [place] [address]- 7836 02 Jan, 2014 [facility] [place] [facility] [address] [id number] [place] [address]- 8481 02 Jan, 2014 [facility] [place] [facility] [address] [id number] [place] [address]- 2421 23 Dec, 2013 [facility] [place] [facility] [address] [id number] [place] [address]- 7926 23 Dec, 2013 [facility] [place] [facility] [address] [id number] [place] [address]- 2549 16 Dec, 2013 [facility] [place] [facility] [address] [id number] [place] [address]- 6824 16 Dec, 2013 [facility] [place] [facility] [address] [id number] [place] [address]- 0718 12 Dec, 2013 [facility] [place] [facility] [address] [id number] [place] [address]- 2558 12 Dec, 2013 [facility] [place] [facility] [address] [id number] [place] [address]- 6311 10 Dec, 2013 [facility] [place] [facility] [address] [id number] [place] [address]- 7182 10 Dec, 2013 [facility] [place] [facility] [address] [id number] [place] [address]- 9638 09 Dec, 2013 [facility] [place] [facility] [address] [id number] [place] [address] 08 Sep, 2013 [facility] [place] [facility] [address] [id number] [place] [address] 08 Sep, 2013 [facility] [place] [facility] [address] [id number] [place] [address] 08 Dec, 2013 [facility] [place] [facility] [address] [id number] [place] [address] 08 Sep, 2013 [facility] [place] [facility] [address] [id number] [place] [address] Dec, [facility] [address] [facility] [id number] [place] [address] Dec, [facility] [address] [facility] [id number] [place] [address] Nov, [facility] [address] [facility] [id number] [place] [address] Nov, IMMUNIZATIONS Vaccine Route Administration Date Status HEP B (ADULT) IM Intramuscular Feb 11, 2017 Administered SOCIAL HISTORY Never Assessed REASON FOR VISIT Immunization(s) and TB test [facility] PLAN OF CARE Activity Details Follow Up 48-72 hours Reason: VITAL SIGNS MEDICATIONS Unknown Medications RESULTS No Results PROCEDURES Procedure Date Ordered Result Body Site TB INTRADERMAL 2017-02-11 N/A TB INTRADERMAL TEST Feb 11, 2017 SINGLE IMMUNIZATION ADMIN Feb 11, 2017 HEP B (ADULT) Feb 11, 2017 INSTRUCTIONS MEDICATIONS ADMINISTERED No Known Medications MEDICAL (GENERAL) HISTORY Type Description Date Medical 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
--- OUTSIDE RECORDS SUMMARY | 2018-01-16 05:56 | XMS REPORT | Continuity of Care Document ---
Author Author [facility] Address Unknown Phone Unavailable Allergies Active Description Code Type Severity Reaction Onset Reported/Identified Relationship to Patient Clinical Status Yes No Known Drug Allergies [id number] Drug Allergy Unknown N/A 08/12/2014 Medications There is no data. Problems Date Dx Coded Attending Type Code Diagnosis Diagnosed By 12/06/2013 PAOLA CARRERO DO V72.42 TEST POSITIVE RESULT 12/06/2013 CRISTIAN ORTEGA APRN V72.42 TEST POSITIVE RESULT 12/06/2013 CRISTIAN ORTEGA APRN A V72.42 TEST POSITIVE RESULT 12/06/2013 CRISTIAN ORTEGA APRN A V72.42 TEST POSITIVE RESULT 12/06/2013 CRISTINO ORTEGA APRNIDI A V72.42 TEST POSITIVE RESULT 12/06/2013 CRISTINO ORTEGA APRNIDI A V72.42 TEST POSITIVE RESULT 12/06/2013 SARAHY SAMPSON MD V72.42 TEST POSITIVE RESULT 12/06/2013 SARAHY SAMPSON MD V72.42 TEST POSITIVE RESULT 12/06/2013 CRISTIAN ORTEGA APRN A V72.42 TEST POSITIVE RESULT 12/06/2013 SARAHY SAMPSON MD V72.42 TEST POSITIVE RESULT 12/06/2013 SARAHY SAMPSON MD V72.42 TEST POSITIVE RESULT 12/06/2013 NEEL GONZALEZ APRN V72.42 TEST POSITIVE RESULT 12/06/2013 V72.42 TEST POSITIVE RESULT 12/06/2013 SARAHY SAMPSON MD V72.42 TEST POSITIVE RESULT 12/06/2013 SARAHY SAMPSON MD V72.42 TEST POSITIVE RESULT 12/06/2013 SARAHY SAMPSON MD V72.42 TEST POSITIVE RESULT 12/13/2013 CRISTIAN ORTEGA APRN A V22.1 , NORMAL OTHER 12/13/2013 SHANNON MARBLE CUTTER OPERATOR, CRISTIAN A V22.1 , NORMAL OTHER 12/13/2013 SHANNON MARBLE CUTTER OPERATOR, CRISTIAN A V22.1 , NORMAL OTHER 12/13/2013 SHANNON MARBLE CUTTER OPERATOR, RCISTIAN A V22.1 , NORMAL OTHER 12/13/2013 SHANNON MARBLE CUTTER OPERATOR, CRISTIAN A V22.1 , NORMAL OTHER 12/13/2013 SARAHY SAMPSON MD N V22.1 , NORMAL OTHER 12/13/2013 SARAHY SAMPSON MD N V22.1 , NORMAL OTHER 12/13/2013 SHANNON APRN, CRISTIAN A V22.1 , NORMAL OTHER 12/13/2013 SARAHY SAMPSON MD N V22.1 , NORMAL OTHER 12/13/2013 SARAHY SAMPSON MD N V22.1 , NORMAL OTHER 12/13/2013 LISA RAHMAN, NEEL R V22.1 , NORMAL OTHER 12/13/2013 V22.1 , NORMAL OTHER 12/13/2013 SARAHY SAMPSON MD N V22.1 , NORMAL OTHER 12/13/2013 SARAHY SAMPSON MD N V22.1 , NORMAL OTHER 12/13/2013 SARAHY SAMPSON MD N V22.1 , NORMAL OTHER 12/17/2013 CRISTIAN ORTEGA APRN A 641.90 COMPL OF - BLEEDING 12/17/2013 CRISTIAN ORTEGA APRN A 641.90 COMPL OF - BLEEDING 12/17/2013 CRISTIAN ORTEGA APRN A 641.90 COMPL OF - BLEEDING 12/17/2013 CRISTIAN ORTEGA APRN A 641.90 COMPL OF - BLEEDING 12/17/2013 CRISTIAN ORTEGA APRN A 641.90 COMPL OF - BLEEDING 12/17/2013 SARAHY SAMPSON MD N 641.90 COMPL OF - BLEEDING 12/17/2013 SARAHY SAMPSON MD N 641.90 COMPL OF - BLEEDING 12/17/2013 CRISTIAN ORTEGA APRN A 641.90 COMPL OF - BLEEDING 12/17/2013 SARAHY SAMPSON MD N 641.90 COMPL OF - BLEEDING 12/17/2013 SARAHY SAMPSON MD 641.90 COMPL OF - BLEEDING 12/17/2013 NEEL GONZALEZ APRN 641.90 COMPL OF - BLEEDING 12/17/2013 641.90 COMPL OF - BLEEDING 12/17/2013 SARAHY SAMPSON MD 641.90 COMPL OF - BLEEDING 12/17/2013 SARAHY SAMPSON MD 641.90 COMPL OF - BLEEDING 12/17/2013 SARAHY SAMPSON MD 641.90 COMPL OF - BLEEDING 01/10/2014 CRISTIAN ORTEGA APRN A 787.01 NAUSEA WITH VOMITING 01/10/2014 CRISTIAN ORTEGA APRN A V04.81 FLU SHOT 01/10/2014 CRISTIAN ORTEGA APRN A V74.5 STD SCREEN 01/10/2014 CRISTIAN ORTEGA APRN A V76.2 CERVICAL CANCER SCREENING (PAP SMEAR) 01/10/2014 SARAHY SAMPSON MD 787.01 NAUSEA WITH VOMITING 01/10/2014 SARAHY SAMPSON MD V04.81 FLU SHOT 01/10/2014 SARAHY SAMPSON MD V74.5 STD SCREEN 01/10/2014 SARAHY SAMPSON MD V76.2 CERVICAL CANCER SCREENING (PAP SMEAR) 01/10/2014 SARAHY SAMPSON MD 787.01 NAUSEA WITH VOMITING 01/10/2014 SARAHY SAMPSON MD V04.81 FLU SHOT 01/10/2014 SARAHY SAMPSON MD V74.5 STD SCREEN 01/10/2014 SARAHY SAMPSON MD V76.2 CERVICAL CANCER SCREENING (PAP SMEAR) 01/10/2014 CRISTIAN ORTEGA APRN A 787.01 NAUSEA WITH VOMITING 01/10/2014 CRISTIAN ORTEGA APRN A V04.81 FLU SHOT 01/10/2014 CRISTIAN ORTEGA APRN A V74.5 STD SCREEN 01/10/2014 CRISTIAN ORTEGA APRN A V76.2 CERVICAL CANCER SCREENING (PAP SMEAR) 01/10/2014 SARAHY SMAPSON MD 787.01 NAUSEA WITH VOMITING 01/10/2014 SARAHY SAMPSON MD V04.81 FLU SHOT 01/10/2014 SARAHY SAMPSON MD V74.5 STD SCREEN 01/10/2014 SARAHY SAMPSON MD V76.2 CERVICAL CANCER SCREENING (PAP SMEAR) 01/10/2014 SARAHY SAMPSON MD 787.01 NAUSEA WITH VOMITING 01/10/2014 SARAHY SAMPSON MD V04.81 FLU SHOT 01/10/2014 SARAHY SAMPSON MD V74.5 STD SCREEN 01/10/2014 SARAHY SAMPSON MD V76.2 CERVICAL CANCER SCREENING (PAP SMEAR) 01/10/2014 NEEL GONZALEZ APRN R 787.01 NAUSEA WITH VOMITING 01/10/2014 DARIAN GONZALEZ APRNIA R V04.81 FLU SHOT 01/10/2014 DARIAN GONZALEZ APRNIA R V74.5 STD SCREEN 01/10/2014 DARIAN GONZALEZ APRNIA R V76.2 CERVICAL CANCER SCREENING (PAP SMEAR) 01/10/2014 787.01 NAUSEA WITH VOMITING 01/10/2014 V04.81 FLU SHOT 01/10/2014 V74.5 STD SCREEN 01/10/2014 V76.2 CERVICAL CANCER SCREENING (PAP SMEAR) 01/10/2014 SARAHY SAMPSON MD 787.01 NAUSEA WITH VOMITING 01/10/2014 SARAHY SAMPSON MD V04.81 FLU SHOT 01/10/2014 SARAHY SAMPSON MD V74.5 STD SCREEN 01/10/2014 SARAHY SAMPSON MD V76.2 CERVICAL CANCER SCREENING (PAP SMEAR) 01/10/2014 SARAHY SAMPSON MD 787.01 NAUSEA WITH VOMITING 01/10/2014 SARAHY SAMPSON MD V04.81 FLU SHOT 01/10/2014 SARAHY SAMPSON MD V74.5 STD SCREEN 01/10/2014 SARAHY SAMPSON MD V76.2 CERVICAL CANCER SCREENING (PAP SMEAR) 01/10/2014 SARAHY SAMPSON MD 787.01 NAUSEA WITH VOMITING 01/10/2014 SARAHY SAMPSON MD V04.81 FLU SHOT 01/10/2014 SARAHY SAMPSON MD V74.5 STD SCREEN 01/10/2014 SARAHY SAMPSON MD V76.2 CERVICAL CANCER SCREENING (PAP SMEAR) 03/21/2014 SHANNONCRISTIAN Hensley APRN A 724.2 LUMBAGO 03/21/2014 SHANNON APRN, CRISTIAN A 788.41 URINARY FREQUENCY 03/21/2014 SARAHY SAMPSON MD N 724.2 LUMBAGO 03/21/2014 SARAHY SAMPSON MD N 788.41 URINARY FREQUENCY 03/21/2014 SARAHY SAMPSON MD N 724.2 LUMBAGO 03/21/2014 SARAHY SAMPSON MD N 788.41 URINARY FREQUENCY 03/21/2014 DARIAN GONZALEZ APRNIA R 724.2 LUMBAGO 03/21/2014 GEGE GONZALEZ APRNRICIA R 788.41 URINARY FREQUENCY 03/21/2014 724.2 LUMBAGO 03/21/2014 788.41 URINARY FREQUENCY 03/21/2014 SARAHY SAMPSON MD N 724.2 LUMBAGO 03/21/2014 SARAHY SAMPSON MD N 788.41 URINARY FREQUENCY 03/21/2014 SARAHY SAMPSON MD N 724.2 LUMBAGO 03/21/2014 SARAHY SAMPSON MD N 788.41 URINARY FREQUENCY 03/21/2014 SARAHY SAMPSON MD N 724.2 LUMBAGO 03/21/2014 SARAHY SAMPSON MD N 788.41 URINARY FREQUENCY 04/09/2014 SARAHY SAMPSON MD N 641.00 PLACENTA PREVIA 04/09/2014 SARAHY SAMPSON MD N 641.00 PLACENTA PREVIA 04/09/2014 DARIAN GONZALEZ APRNIA R 641.00 PLACENTA PREVIA 04/09/2014 641.00 PLACENTA PREVIA 04/09/2014 SARAHY SAMPSON MD N 641.00 PLACENTA PREVIA 04/09/2014 SARAHY SAMPSON MD N 641.00 PLACENTA PREVIA 04/09/2014 SARAHY SAMPSON MD N 641.00 PLACENTA PREVIA 04/16/2014 SARAHY SAMPSON MD N Ot V22.1 05/09/2014 SARAHY SAMPSON MD Ot V22.1 06/25/2014 NEEL GONZALEZ APRN R V06.1 TDAP DX 06/25/2014 V06.1 TDAP DX 06/25/2014 SARAHY SAMPSON MD N V06.1 TDAP DX 06/25/2014 SARAHY SAMPSON MD V06.1 TDAP DX 06/25/2014 SARAHY SAMPSON MD V06.1 TDAP DX 07/01/2014 LISA RAHMAN NEEL Harris 462 ACUTE PHARYNGITIS 07/01/2014 462 ACUTE PHARYNGITIS 07/01/2014 SARAHY SAMPSON MD 462 ACUTE PHARYNGITIS 07/01/2014 SARAHY SAMPSON MD 462 ACUTE PHARYNGITIS 07/01/2014 SARAHY SAMPSON MD 462 ACUTE PHARYNGITIS 08/12/2014 CRISTIAN ORTEGA APRN Ot V22.1 08/12/2014 SARAHY SAMPSON MD Ot V22.1 08/12/2014 SARAHY SAMPSON MD Ot V22.1 08/15/2014 SARAHY SAMPSON MD Ot 285.9 ANEMIA NOS 08/15/2014 SARAHY SAMPSON MD Ot 427.89 CARDIAC DYSRHYTHMIAS NEC 08/15/2014 SARAHY SAMPSON MD Ot 648.22 ANEMIA-DELIVERED W P/P 08/15/2014 SARAHY SAMPSON MD Ot 648.61 CV DIS NEC PREG-DELIVER 08/15/2014 SARAHY ASMPSON MD Ot 659.71 ABN DEL FET HT RT/RHYTHM,W OR W/O MENTIO 08/15/2014 SARAHY SAMPSON MD Ot V27.0 DELIVER-SINGLE LIVEBORN 06/13/2017 MARY CHAVEZ DO, Ot Z34.91 ENCNTR FOR SUPRVSN OF NORMAL PREG, UNSP, 06/13/2017 MERTDGMARY Jurado DO Ot Z3A.01 LESS THAN 8 WEEKS GESTATION OF 09/02/2017 MRAY CHAVEZ DO, Ot Z34.91 ENCNTR FOR SUPRVSN OF NORMAL PREG, UNSP, 09/02/2017 IGNACIONIDGMARY Jurado DO Ot Z3A.01 LESS THAN 8 WEEKS GESTATION OF 09/05/2017 MARY CHAVEZ DO, Ot Z34.82 ENCOUNTER FOR SUPRVSN OF NORMAL PREGNANC 09/05/2017 BARNIDGE DO, MARY E Ot Z3A.19 19 WEEKS GESTATION OF 09/05/2017 BARNIDGE DO, MARY E Ot Z34.82 ENCOUNTER FOR SUPRVSN OF NORMAL PREGNANC 09/05/2017 BARNIDGE DO, MARY E Ot Z3A.19 19 WEEKS GESTATION OF 10/19/2017 GEOVANI MAI MD Ot Z36.89 ENCOUNTER FOR OTHER SPECIFIED 10/19/2017 GEOVANI MAI MD Ot Z3A.26 26 WEEKS GESTATION OF 10/26/2017 CRISTIAN ORTEGA APRN Ot V22.1 SUPERVIS OTH NORMAL PREG 10/26/2017 SARAHY SAMPSON MD Ot V22.1 SUPERVIS OTH NORMAL PREG 10/26/2017 SARAHY SAMPSON MD Ot V22.1 SUPERVIS OTH NORMAL PREG 10/26/2017 BARNIDGE DOMARY E Ot Z34.91 ENCNTR FOR SUPRVSN OF NORMAL PREG, UNSP, 10/26/2017 BARNIDGE DOORLANDOMARY E Ot Z3A.01 LESS THAN 8 WEEKS GESTATION OF 10/26/2017 BARNIDGE DOMARY E Ot Z34.82 ENCOUNTER FOR SUPRVSN OF NORMAL PREGNANC 10/26/2017 BARNIDGE DO, MARY E Ot Z3A.19 19 WEEKS GESTATION OF 10/26/2017 GEOVANI MAI MD Ot Z36.89 ENCOUNTER FOR OTHER SPECIFIED 10/26/2017 GEOVANI MAI MD Ot Z3A.26 26 WEEKS GESTATION OF 11/08/2017 GEOVANI MAI MD Ot Z36.89 ENCOUNTER FOR OTHER SPECIFIED 11/08/2017 GEOVANI MAI MD Ot Z3A.26 26 WEEKS GESTATION OF 12/02/2017 BARNIDGE DOMARY E Ot Z34.91 ENCNTR FOR SUPRVSN OF NORMAL PREG, UNSP, 12/02/2017 BARNIDGE DOORLANDOMARY E Ot Z3A.01 LESS THAN 8 WEEKS GESTATION OF 12/04/2017 CARRERO DO, PAOLA K Ot R10.11 RIGHT UPPER QUADRANT PAIN 12/04/2017 CARRERO DO PAOLA K Ot Z3A.33 33 WEEKS GESTATION OF 12/07/2017 GEOVANI MAI MD, Ot Z36.89 ENCOUNTER FOR OTHER SPECIFIED 12/07/2017 GEOVANI MAI MD Ot Z3A.26 26 WEEKS GESTATION OF 12/07/2017 CRISTIAN ORTEGA JOSIAH Ot V22.1 SUPERVIS OTH NORMAL PREG 12/07/2017 SARAHY SAMPSON MD Ot V22.1 SUPERVIS OTH NORMAL PREG 12/07/2017 SARAHY SAMPSON MD Ot V22.1 SUPERVIS OTH NORMAL PREG 12/07/2017 GEOVANI MAI MD Ot Z36.89 ENCOUNTER FOR OTHER SPECIFIED 12/07/2017 GEOVANI MAI MD Ot Z3A.26 26 WEEKS GESTATION OF 12/09/2017 MERTDGMARY Jurado DO Ot Z34.91 ENCNTR FOR SUPRVSN OF NORMAL PREG, UNSP, 12/09/2017 MERTMARY Jurado DO Ot Z3A.01 LESS THAN 8 WEEKS GESTATION OF 12/14/2017 MERTMARY Jurado DO Ot Z34.91 ENCNTR FOR SUPRVSN OF NORMAL PREG, UNSP, 12/14/2017 MERTDGMARY Jurado DO Ot Z3A.01 LESS THAN 8 WEEKS GESTATION OF 12/14/2017 MERTMARY Jurado DO Ot Z34.82 ENCOUNTER FOR SUPRVSN OF NORMAL PREGNANC 12/14/2017 MARY CHAVEZ DO Ot Z3A.19 19 WEEKS GESTATION OF 12/14/2017 GEOVANI MAI MD Ot Z36.89 ENCOUNTER FOR OTHER SPECIFIED 12/14/2017 GEOVANI MAI MD Ot Z3A.26 26 WEEKS GESTATION OF 12/29/2017 PAOLA CARRERO DO Ot R10.11 RIGHT UPPER QUADRANT PAIN 12/29/2017 PAOLA CARRERO DO Ot Z3A.33 33 WEEKS GESTATION OF 01/09/2018 MARY CHAVEZ DO Ot Z03.71 ENCNTR FOR SUSP PROB W AMNIO CAVITY AND 01/11/2018 BANNERMICHAELMARY Jurado DO Ot Z03.71 ENCNTR FOR SUSP PROB W AMNIO CAVITY AND 01/11/2018 BANNERMICHAELMARY Jurado DO Ot Z03.71 ENCNTR FOR SUSP PROB W AMNIO CAVITY AND Procedures Code [place] [address] TEST, URINE (IN- HOUSE) 12/06/2013 77869 US OB - EARLY <14 WEEKS 12/13/2013 55807 UA LONG DIP 12/13/2013 06831 ROUTINE VENIPUNCTURE 12/17/2013 61615 HCG QUANTITATIVE 12/17/2013 70752 BLOOD TYPE/Rh FACTOR 12/18/2013 62337 ROUTINE VENIPUNCTURE 12/19/2013 54010 HCG QUANTITATIVE 12/19/2013 91126 ROUTINE VENIPUNCTURE 01/10/2014 15661 SYPHILLIS TEST 01/10/2014 91500 GC/CHLAM PROBE ([facility]) 01/10/2014 Q0091 PAP SMEAR OBTAIN SMEAR 01/10/2014 42725 UA OB DIP 01/10/2014 32124 TRICHOMONAS (IN-HOUSE) 01/10/2014 25094 CBC 01/10/2014 84618 TSH 01/10/2014 47307 HEP B SURFACE ANTIGEN (RML) 01/10/2014 6568248 RPR (RAPID PLASMA REAGIN) 01/10/2014 04258 HIV ANTIBODIES (RML) 01/11/2014 01619 CULTURE URINE 01/11/2014 47457 RUBELLA ANTIBODY, IGG 01/11/2014 54261 CULTURE UROGENITAL 01/13/2014 64178 PAP SMEAR 01/14/2014 96967 UA OB DIP 02/07/2014 74465 ROUTINE VENIPUNCTURE 03/12/2014 44680 UA OB DIP 03/12/2014 04474 US OB - COMPLETE >14 WEEKS 03/12/2014 TETRA TETRA SCREEN 03/12/2014 16278 UA W/ CULTURE IF INDICATED 03/21/2014 34898 UA OB DIP 04/09/2014 46091 US OB - FOLLOW UP 04/09/2014 95252 STREP A (IN-HOUSE) 07/01/2014 74690 UA OB DIP 07/09/2014 67319 UA OB DIP 07/17/2014 54856 CULTURE GROUP B STREP VAG 07/17/2014 30668 UA OB DIP 07/24/2014 84071 UA OB DIP 07/30/2014 73.4 MEDICAL INDUCTION LABOR 08/13/2014 73.59 MANUAL ASSIST DELIV NEC 08/13/2014 Results Test Result Range TSH - 05/09/17 10:14 TSH 1.09 mIU/L NRG INSULIN LEVEL - 05/09/17 10:14 INSULIN 13.4 uIU/mL 2.0-19.6 PROLACTIN - 05/18/17 11:31 PROLACTIN 5.9 ng/mL NRG TESTOSTERONE, TOTAL (WOMEN, CHILDREN, HYPOGONADAL MALES) - 05/18/17 11:31 TESTOSTERONE, TOTAL, LC/MS/MS 68 ng/dL 2-45 FREE TESTOSTERONE 4.1 pg/mL 0.1-6.4 GLUCOSE JEFFERY 2 HOUR - 05/18/17 11:31 GLUCOSE, POSTPRANDIAL/ 2 HOUR 89 mg/dL <140 CULTURE, URINE - 06/20/17 09:00 CULTURE, URINE, ROUTINE SEE NOTE NRG QNATAL - 06/30/17 14:29 NUMBER OF FETUSES? 1 NRG ADVANCED MATERNAL AGE? NO NRG ABNORMAL [place]? NO NRG ABNORMAL US? NO NRG PERSONAL/FAM HISTORY? NO NRG INTERPRETATION SEE NOTE NRG TRISOMY 21 (T21) Negative NRG TRISOMY 18 (T18) Negative NRG TRISOMY 13 (T13) Negative NRG Y CHROMOSOME Opted Out NRG Y CHR. INTERPRETATION SEE NOTE NRG SEX CHROMOSOME No aneuploidy NRG SEX CHROMOSOME INTERP SEE NOTE NRG MICRODELETION Not detected NRG MICRODELETION INTERP SEE NOTE NRG GESTATIONAL AGE(IN WEEKS) 10 NRG GESTATIONAL AGE (IN DAYS) 4 NRG FRACTION 6.54% NRG LABORATORY COMMENTS SEE NOTE NRG LIMITATIONS SEE NOTE NRG SPECIFICATIONS SEE NOTE NRG METHODOLOGY SEE NOTE NRG TRICHINELLA IGG ANTIBODY, ADEOLA - 07/18/17 14:23 TRICHINELLA IGG ANTIBODY, ADEOLA TNP NRG SUREPATH PAP RFX HPV mRNA E6/E7 - 07/18/17 14:28 CLINICAL INFORMATION: NRG LMP: 03/25/17 NRG PREV. PAP: NL NRG PREV. BX: NA NRG SOURCE: [employer] NRG STATEMENT OF ADEQUACY: NRG INTERPRETATION/RESULT: NRG CUTTER AND EDGE TRIMMER: NRG COMMENT NRG CULTURE, URINE - 09/09/17 11:00 CULTURE, URINE, ROUTINE SEE NOTE NRG CBC - 10/24/17 11:17 WHITE BLOOD CELL COUNT 9.4 Thousand/uL 3.8-10.8 RED BLOOD CELL COUNT 4.21 Million/uL 3.80-5.10 HEMOGLOBIN 11.5 g/dL 11.7-15.5 HEMATOCRIT 35.7 % 35.0-45.0 MCV 84.8 fL 80.0-100.0 MCH 27.3 pg 27.0-33.0 MCHC 32.2 g/dL 32.0-36.0 RDW 13.0 % 11.0-15.0 PLATELET COUNT 210 Thousand/uL 140-400 MPV 12.5 fL 7.5-12.5 ABSOLUTE NEUTROPHILS 7050 cells/uL 6394-4291 ABSOLUTE LYMPHOCYTES 1607 cells/uL 850-3900 ABSOLUTE MONOCYTES 649 cells/uL 200-950 ABSOLUTE EOSINOPHILS 85 cells/uL 15-500 ABSOLUTE BASOPHILS 9 cells/uL 0-200 NEUTROPHILS 75 % NRG LYMPHOCYTES 17.1 % NRG MONOCYTES 6.9 % NRG EOSINOPHILS 0.9 % NRG BASOPHILS 0.1 % NRG Complete blood count (CBC) with automated white blood cell (WBC) differential - 12/04/17 17:00 Blood leukocytes automated count (number/volume) 7.8 10*3/uL 4.3-11.0 Blood erythrocytes automated count (number/volume) 3.79 10*6/uL 4.35-5.85 Venous blood hemoglobin measurement (mass/volume) 10.1 g/dL 11.5-16.0 Blood hematocrit (volume fraction) 31 % 35-52 Automated erythrocyte mean corpuscular volume 81 [foz_us] 80-99 Automated erythrocyte mean corpuscular hemoglobin (mass per erythrocyte) 27 pg 25-34 Automated erythrocyte mean corpuscular hemoglobin concentration measurement ( mass/volume) 33 g/dL 32-36 Automated erythrocyte distribution width ratio 14.7 % 10.0-14.5 Automated blood platelet count (count/volume) 179 10*3/uL 130-400 Automated blood platelet mean volume measurement 12.4 [foz_us] 7.4-10.4 Automated blood neutrophils/100 leukocytes 72 % 42-75 Automated blood lymphocytes/100 leukocytes 19 % 12-44 Blood monocytes/100 leukocytes 8 % 0-12 Automated blood eosinophils/100 leukocytes 1 % 0-10 Automated blood basophils/100 leukocytes 0 % 0-10 Blood neutrophils automated count (number/volume) 5.6 10*3 1.8-7.8 Blood lymphocytes automated count (number/volume) 1.5 10*3 1.0-4.0 Blood monocytes automated count (number/volume) 0.6 10*3 0.0-1.0 Automated eosinophil count 0.1 10*3/uL 0.0-0.3 Automated blood basophil count (count/volume) 0.0 10*3/uL 0.0-0.1 Comprehensive metabolic panel - 12/04/17 17:00 Serum or plasma sodium measurement (moles/volume) 139 mmol/L 135-145 Serum or plasma potassium measurement (moles/volume) 3.8 mmol/L 3.6-5.0 Serum or plasma chloride measurement (moles/volume) 110 mmol/L 98-107 Carbon dioxide 18 mmol/L 21-32 Serum or plasma anion gap determination (moles/volume) 11 mmol/L 5-14 Serum or plasma urea nitrogen measurement (mass/volume) 7 mg/dL 7-18 Serum or plasma creatinine measurement (mass/volume) 0.58 mg/dL 0.60-1.30 Serum or plasma urea nitrogen/creatinine mass ratio 12 NRG Serum or plasma creatinine measurement with calculation of estimated glomerular filtration rate > NRG Serum or plasma glucose measurement (mass/volume) 87 mg/dL 70-105 Serum or plasma calcium measurement (mass/volume) 8.5 mg/dL 8.5-10.1 Serum or plasma total bilirubin measurement (mass/volume) 0.3 mg/dL 0.1-1.0 Serum or plasma alkaline phosphatase measurement (enzymatic activity/volume) 155 U/L 40-136 Serum or plasma aspartate aminotransferase measurement (enzymatic activity/ volume) 16 U/L 5-34 Serum or plasma alanine aminotransferase measurement (enzymatic activity/volume ) 15 U/L 0-55 Serum or plasma protein measurement (mass/volume) 5.7 g/dL 6.4-8.2 Serum or plasma albumin measurement (mass/volume) 3.0 g/dL 3.2-4.5 CALCIUM CORRECTED 9.3 mg/dL 8.5-10.1 CULTURE, GROUP B STREP (VAGINAL) - 12/28/17 10:47 STREPTOCOCCUS, GROUP B CULTURE SEE NOTE NRG Complete urinalysis with reflex to culture - 01/09/18 19:00 Urine color determination YELLOW NRG Urine clarity determination CLEAR NRG Urine pH measurement by test strip 7 5-9 Specific gravity of urine by test strip 1.010 1.016- 1.022 Urine protein assay by test strip, semi-quantitative NEGATIVE NEGATIVE Urine glucose detection by automated test strip NEGATIVE NEGATIVE Erythrocytes detection in urine sediment by light microscopy NEGATIVE NEGATIVE Urine ketones detection by automated test strip NEGATIVE NEGATIVE Urine nitrite detection by test strip NEGATIVE NEGATIVE Urine total bilirubin detection by test strip NEGATIVE NEGATIVE Urine urobilinogen measurement by automated test strip (mass/volume) NORMAL NORMAL Urine leukocyte esterase detection by dipstick 1+ NEGATIVE Automated urine sediment erythrocyte count by microscopy (number/high power field) NONE NRG Automated urine sediment leukocyte count by microscopy (number/high power field ) RARE NRG Bacteria detection in urine sediment by light microscopy NEGATIVE NRG Squamous epithelial cells detection in urine sediment by light microscopy 10-25 NRG Crystals detection in urine sediment by light microscopy NONE NRG Casts detection in urine sediment by light microscopy NONE NRG Mucus detection in urine sediment by light microscopy NEGATIVE NRG Complete urinalysis with reflex to culture NO NRG Complete blood count (CBC) with automated white blood cell (WBC) differential - 01/09/18 20:30 Blood leukocytes automated count (number/volume) 7.5 10*3/uL 4.3-11.0 Blood erythrocytes automated count (number/volume) 4.09 10*6/uL 4.35-5.85 Venous blood hemoglobin measurement (mass/volume) 9.8 g/dL 11.5-16.0 Blood hematocrit (volume fraction) 32 % 35-52 Automated erythrocyte mean corpuscular volume 77 [foz_us] 80-99 Automated erythrocyte mean corpuscular hemoglobin (mass per erythrocyte) 24 pg 25-34 Automated erythrocyte mean corpuscular hemoglobin concentration measurement ( mass/volume) 31 g/dL 32-36 Automated erythrocyte distribution width ratio 16.5 % 10.0-14.5 Automated blood platelet count (count/volume) 186 10*3/uL 130-400 Automated blood neutrophils/100 leukocytes 71 % 42-75 Automated blood lymphocytes/100 leukocytes 22 % 12-44 Blood monocytes/100 leukocytes 7 % 0-12 Automated blood eosinophils/100 leukocytes 1 % 0-10 Automated blood basophils/100 leukocytes 0 % 0-10 Blood neutrophils automated count (number/volume) 5.3 10*3 1.8-7.8 Blood lymphocytes automated count (number/volume) 1.6 10*3 1.0-4.0 Blood monocytes automated count (number/volume) 0.5 10*3 0.0-1.0 Automated eosinophil count 0.1 10*3/uL 0.0-0.3 Automated blood basophil count (count/volume) 0.0 10*3/uL 0.0-0.1 Comprehensive metabolic panel - 01/09/18 20:30 Serum or plasma sodium measurement (moles/volume) 136 mmol/L 135-145 Serum or plasma potassium measurement (moles/volume) 3.7 mmol/L 3.6-5.0 Serum or plasma chloride measurement (moles/volume) 106 mmol/L 98-107 Carbon dioxide 20 mmol/L 21-32 Serum or plasma anion gap determination (moles/volume) 10 mmol/L 5-14 Serum or plasma urea nitrogen measurement (mass/volume) 8 mg/dL 7-18 Serum or plasma creatinine measurement (mass/volume) 0.60 mg/dL 0.60-1.30 Serum or plasma urea nitrogen/creatinine mass ratio 13 NRG Serum or plasma creatinine measurement with calculation of estimated glomerular filtration rate > NRG Serum or plasma glucose measurement (mass/volume) 132 mg/dL 70-105 Serum or plasma calcium measurement (mass/volume) 9.1 mg/dL 8.5-10.1 Serum or plasma total bilirubin measurement (mass/volume) 0.4 mg/dL 0.1-1.0 Serum or plasma alkaline phosphatase measurement (enzymatic activity/volume) 216 U/L 40-136 Serum or plasma aspartate aminotransferase measurement (enzymatic activity/ volume) 18 U/L 5-34 Serum or plasma alanine aminotransferase measurement (enzymatic activity/volume ) 18 U/L 0-55 Serum or plasma protein measurement (mass/volume) 6.6 g/dL 6.4-8.2 Serum or plasma albumin measurement (mass/volume) 3.2 g/dL 3.2-4.5 CALCIUM CORRECTED 9.7 mg/dL 8.5-10.1 Encounters ACCT No. Visit Date/Time Discharge Status Pt. Type Provider Facility Loc./Unit Complaint [id number] 07/30/2014 15:55:00 07/30/2014 23:59:59 CLS Outpatient SARAHY SAMPSON MD [id number] 07/24/2014 16:09:00 07/24/2014 23:59:59 CLS Outpatient SARAHY SAMPSON MD [id number] 07/17/2014 14:45:00 07/17/2014 23:59:59 CLS Outpatient SARAHY SAMPSON MD [id number] 07/01/2014 14:06:00 07/01/2014 23:59:59 CLS Outpatient NEEL GONZALEZ APRN [id number] 04/09/2014 13:55:00 04/09/2014 23:59:59 CLS Outpatient SARAHY SAMPSON MD [id number] 03/21/2014 08:54:00 03/21/2014 23:59:59 CLS Outpatient [facility] Hens[facility] APRN Brittany [id number] 03/12/2014 09:33:00 03/12/2014 23:59:59 CLS Outpatient SARAHY SAMPSON MD [id number] 03/12/2014 09:33:00 03/12/2014 23:59:59 CLS Outpatient SARAHY SAMPSON MD [id number] 02/07/2014 09:48:00 02/07/2014 23:59:59 CLS Outpatient SARAHY SAMPSON MD [id number] 01/10/2014 08:46:00 01/10/2014 23:59:59 CLS Outpatient [facility] CRISTIAN RAHMAN [id number] 12/19/2013 08:28:00 12/19/2013 23:59:[id number] 12/17/2013 15:04:00 12/17/2013 23:59:59 [id number] 12/13/2013 08:28:00 12/13/2013 23:59:59 [facility] [id number] 12/13/2013 08:28:00 12/13/2013 23:59:59 [facility] [id number] 12/06/2013 08:45:00 12/06/2013 23:59:59 CLS Outpatient PAOLA CARRERO DO [id number] 07/09/2014 09:53:00 Document Registration [id number] 08/15/2017 08:20:00 08/15/2017 23:59:59 CLS Outpatient MARY CHAVEZ [id number] 07/18/2017 13:00:00 Document Registration [id number] 06/30/2017 14:00:00 Document Registration [id number] 06/20/2017 08:00:00 Document Registration [id number] 05/19/2017 09:20:00 Document Registration [id number] 05/18/2017 11:40:00 Document Registration [id number] 05/09/2017 08:00:00 Document Registration [id number] 11/11/2017 08:00:00 11/11/2017 23:59:59 CLS Outpatient MARY CHAVEZ JOAO ERNST [id number] 12/28/2017 09:00:00 Document Registration [id number] 10/24/2017 11:40:00 Document Registration [id number] 09/09/2017 10:40:00 Document Registration [id number] 01/09/2018 18:32:00 01/09/2018 22:53:00 DIS Outpatient MARY CHAVEZ DO [facility]So LEAKING FLUID/ CONTRACTIONS [id number] 12/04/2017 15:20:00 12/04/2017 18:05:00 DIS Outpatient PAOLA CARRERO DO [facility] PAIN IN RT ABD [id number] 10/18/2017 11:34:00 10/18/2017 23:59:59 CLS Outpatient GEOVANI MAI MD [facility] RAD LOW LYING PLACENTA NOS W/ O HEMORRHAGE,SECOND TRIM [id number] 09/02/2017 09:08:00 09/02/2017 23:59:59 CLS Outpatient MARY CHAVEZ DO [facility] RAD SECOND TRIMESTER [id number] 2017 09:51:00 2017 23:59:59 CLS Outpatient MARY CHAVEZ DO [facility] Z3A.01 [id number] 08/12/2014 16:30:00 08/15/2014 12:45:00 DIS Inpatient SARAHY SAMPSON MD [facility] LDRP DEC BABY MOVEMENT [id number] 04/18/2014 09:46:00 04/18/2014 23:59:59 CLS Outpatient SARAHY SAMPSON MD [facility] RAD POOR VISULIZATION,FOLLOW UP PLACENTA VISUALIZATION [id number] 03/27/2014 10:07:00 03/27/2014 23:59:59 CLS Outpatient SARAHY SAMPSON MD [facility] SCREENING ANATOMY [id number] 12/27/2013 09:35:00 12/27/2013 23:59:59 CLS Outpatient CRISTIAN ORTEGA APRN [facility] DATING, [id number] 01/16/2018 05:43:00 ACT Inpatient MARY CHAVEZ DO [facility] LDRP INDUCTION
[2018-01-16] MEDS ORDERED: MINERAL OIL CONCENTRATE 99.9% 15 ML UDC TOP PRN (06:00)
[2018-01-16] MEDS ORDERED: CATHETER FLUSH 10 ML SYR IV SCH (06:00)
[2018-01-16 06:12] LABS: BILIRUBIN,URINE NEGATIVE (NEGATIVE); CLARITY,URINE VERY CLOUDY; COLOR,URINE YELLOW; GLUCOSE, URINE (UA) NEGATIVE (NEGATIVE); KETONES,URINE NEGATIVE (NEGATIVE); LEUKOCYTE ESTERASE ,URINE 3+ (NEGATIVE); NITRITE,URINE NEGATIVE (NEGATIVE); PH,URINE 7 (5-9); PROTEIN,URINE NEGATIVE (NEGATIVE); UROBILINOGEN,URINE NORMAL (NORMAL)
[2018-01-16 06:20] LABS: BACTERIA,URINE MODERATE /HPF; RBC,URINE 0-2 /HPF
[2018-01-16 06:40] LABS: BASOPHILS % (AUTO) 0 % (0-10); EOSINOPHILS # (AUTO) 0.1 10^3/uL (0.0-0.3); EOSINOPHILS % (AUTO) 1 % (0-10); HEMATOCRIT 34 % (35-52); HEMOGLOBIN 10.8 G/DL (11.5-16.0); LYMPHOCYTES # (AUTO) 2.2 X 10^3 (1.0-4.0); LYMPHOCYTES % (AUTO) 23 % (12-44); MEAN CORPUSCULAR HEMOGLOBIN 25 PG (25-34); MEAN CORPUSCULAR HGB CONC 32 G/DL (32-36); MEAN CORPUSCULAR VOLUME 77 FL (80-99); MEAN PLATELET VOLUME 13.2 FL (7.4-10.4); MONOCYTES # (AUTO) 0.9 X 10^3 (0.0-1.0); MONOCYTES % (AUTO) 9 % (0-12); NEUTROPHILS # (AUTO) 6.6 X 10^3 (1.8-7.8); NEUTROPHILS % (AUTO) 67 % (42-75); PLATELET COUNT 176 10^3/uL (130-400); RED BLOOD COUNT 4.34 10^6/uL (4.35-5.85); RED CELL DISTRIBUTION WIDTH 17.3 % (10.0-14.5); WHITE BLOOD COUNT 9.9 10^3/uL (4.3-11.0)
[2018-01-16] MEDS ORDERED: OXYTOCIN/NORMAL SALINE 500 ML IV SCH ×2 (06:47→17:16)
[2018-01-16] MEDS ORDERED: BUTORPHANOL INJ 2 MG/ML (STADOL) VIAL IV PRN (07:00)
[2018-01-16] MEDS ORDERED: TERBUTALINE INJ 1 MG/ML (BRETHINE) AMP SC PRN (07:00)
[2018-01-16] MEDS ORDERED: ONDANSETRON 4 MG/2 ML (SDV) Z0FRAN IVP PRN (07:00)
--- NOTE | 2018-01-16 07:16 | History & Physical-OB ---
OB - Chief Complaint & HPI Date/Time Date of Admission: Date of Admission: Jan 16, 2018 at 05:43 Date seen by a Provider: Jan 16, 2018 Time Seen by a Provider: 16:25 Chief Complaint/History OB-Reason for Admission/Chief: Induction of Labor Hx : 3 Hx Para: 2 Hx Last Menstrual Period: 03/25/17 Expected Date of Delivery: Jan 22, 2018 (dating via 7w5d US) Gestational Age in Weeks: 39 Gestational Age in Days: 1 Indication for induction: maternal discomfort, maternal distance Admission Nurse Assessment Rev: Yes History of Labs Labs: CBC, CMP WNL A Positive, Antibody Screen Negative HIV Negative Hep B Negative Hep C Negative GC and Chlamydia Negative RPR Non-Reactive Varicella Immune Rubella Immune Urine Drug Screen Negative Urine Culture WNL QNatal Test - no aneuploidy demonstrated; sex chromosome analysis declined Tetra Screen Declined 1 Hour GTT WNL - 82 GBS Negative Allergies and Home Medications Allergies Coded Allergies: No Known Drug Allergies (Unverified , 08/12/14) Home Medications Omeprazole 20 Mg Capsule.dr, 20 MG PO DAILY, (Reported) Vit/Fe Fumarate/Fa 1 Each Tablet, 1 EACH PO DAILY, (Reported) Patient Home Medication List Home Medication List Reviewed: Yes OB - History Hx of Present Care: Yes Ultrasounds: Abnormal US findings (US at 20 weeks showed low lying placenta; follow up US showed complete resolution. All structures per formal US report have been documented as WNL and all appropriate views obtained per radiology reports. 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 (always with lead and counter) throughout ) Information Induced Hypertension: No Maternal Gestational Diabetes: No Hemorrhage: No Obstetrical History Hx : 3 Hx Para: 2 Hx # Term Pregnancies: 2 Hx # Pregnancies: 0 Number of Living Children: 2 Hx Termination: No Hx Total # of Abortions (Spona: 0 Hx Multiple Gestation: No Hx Ectopic : No Hx Stillbirth: No Hx Complication: No Hx Induced Hypertens: No Hx Maternal Gestational Diabet: No Hx Hemorrhage: No Delivery History Hx Dystocia: No Hx Forceps Assisted Delivery: No Hx Vacuum Extraction Assisted: No Hx Placenta Abnormality: No Hx Distress: No Hx Large For Gestational Age I: No Hx Small for Gestational Age I: No Hx Section: No Hx Vaginal Delivery Post C-Sec: No Hx Blood Disorders: No Adverse Rxn to Tranfusion: No Patient Past Medical History Mitral Valve Prolapse x2 PCOS Obesity, BMI 30-39 Bilateral Carpal Tunnel Syndrome Osteoarthritis Social History/Family History HIV/AIDS: No Recent Infectious Disease Expo: No Sexually Transmitted Disease: No Alcohol Use: Denies Use Recreational Drug Use: No Smoking Cessation: Never smoker 2nd Hand Smoke Exposure: No Immunizations Hepatitis A: Yes Hepatitis B: Yes Tetanus Booster (TDap): Less than 5yrs Date of Influenza Vaccine: Jan 05, 2018 Rubella: immune RPR/VDRL: Negative GBS Status: Negative HBsAG: Negative OB - Admission Exam Physical Exam Vitals: Vital Signs 01/16/18 06:00 Temp 98.7 Pulse 110 Resp 18 B/P (MAP) 118/69 (85) HEENT: NCAT Heart: Rhythm Normal (murmur present) Lungs: Clear, Equal Abdomen: Gravid Extremities: Normal Reflexes: Normal Cervical Dilatation: 10cm Effacement: 100% Station: +2 Membranes: Ruptured Amniotic Fluid: Thin Meconium Heart Rate: 150's Decelerations: Variable Decelerations Short Term Variability: Present Family Practice Medical Doctor Variability: Average (6-25) Contractions on Admission: < 5 Minutes Apart Intensity: Firm Labs Laboratory Tests Test 01/16/18 06:00 01/16/18 06:15 Range/Units Urine Color YELLOW Urine Clarity VERY CLOUDY H Urine pH 7 5-9 Urine Specific Morse 1.010 L 1.016-1.022 Urine Protein NEGATIVE NEGATIVE Urine Glucose (UA) NEGATIVE NEGATIVE Urine Ketones NEGATIVE NEGATIVE Urine Nitrite NEGATIVE NEGATIVE Urine Bilirubin NEGATIVE NEGATIVE Urine Urobilinogen NORMAL NORMAL MG/DL Urine Leukocyte Esterase 3+ H NEGATIVE Urine RBC (Auto) NEGATIVE NEGATIVE Urine RBC 0-2 /HPF Urine WBC 10-25 H /HPF Urine Squamous Epithelial Cells 10-25 H /HPF Urine Crystals NONE /LPF Urine Bacteria MODERATE H /HPF Urine Casts NONE /LPF Urine Mucus NEGATIVE /LPF Urine Culture Indicated YES White Blood Count 9.9 4.3-11.0 10^3/uL Red Blood Count 4.34 L 4.35-5.85 10^6/uL Hemoglobin 10.8 L 11.5-16.0 G/DL Hematocrit 34 L 35-52 % Mean Corpuscular Volume 77 L 80-99 FL Mean Corpuscular Hemoglobin 25 25-34 PG Mean Corpuscular Hemoglobin Concent 32 32-36 G/DL Red Cell Distribution Width 17.3 H 10.0-14.5 % Platelet Count 176 130-400 10^3/uL Mean Platelet Volume 13.2 H 7.4-10.4 FL Neutrophils (%) (Auto) 67 42-75 % Lymphocytes (%) (Auto) 23 12-44 % Monocytes (%) (Auto) 9 0-12 % Eosinophils (%) (Auto) 1 0-10 % Basophils (%) (Auto) 0 0-10 % Neutrophils # (Auto) 6.6 1.8-7.8 X 10^3 Lymphocytes # (Auto) 2.2 1.0-4.0 X 10^3 Monocytes # (Auto) 0.9 0.0-1.0 X 10^3 Eosinophils # (Auto) 0.1 0.0-0.3 10^3/uL Basophils # (Auto) 0.0 0.0-0.1 10^3/uL OB - Assessment/Plan/Diagnosis Assessment Assessment: induction of labor Admission Dx Elective Induction of Labor Term IUP 39 Weeks Gestation Obesity Complicating Radiation Exposure Complicating Heartburn PCOS Mitral Valve Prolapse Admission Status: Inpatient Order (span 2 midnights) Reason for Inpatient Admission: induction of labor, delivery, and care Plan Plan: Induction Induction Method: per Pitocin Protocol Other Plan -pitocin per protocol -epidural if desired -may have stadol IV for pain if requested prior to epidural placement -FSE placement if needed; if needed prior to AROM, contact physician for AROM and lead placement -GBS negative, no prophylaxis indicated -anticipate vaginal delivery Copy Copies To 1: MARY CHAVEZ MARGARET E DO Jan 16, 2018 07:16
[2018-01-16] MEDS: D5 LR IV SOLUTION 1,000 ML IV SCH ×2 (07:32→14:10)
[2018-01-16] MEDS ORDERED: LIDOCAINE/EPI 2% 1:200,00 (XYLOCAINE) 10 ML VIAL ONE (12:11)
[2018-01-16] MEDS ORDERED: SUFENTA 0.6MCG/ML BUPIVA 0.125 100 ML ONE (13:31)
[2018-01-16] MEDS ORDERED: fentaNYL INJECTION 100 MCG/2 ML AMP ONE (14:08)
[2018-01-16] MEDS ORDERED: BUPIVACAINE 0.5% 30 ML (SENSORCAINE) VIAL ONE (14:08)
[2018-01-16] MEDS ORDERED: LACTATED RINGERS 1,000 ML IV ONE (14:41)
[2018-01-16] MEDS ORDERED: EPIDURAL (SUFENTA 0.6MCG/ML BUPIVA 0.125%) 100 ML BAG EPI SCH (14:45)
[2018-01-16] MEDS ORDERED: NALOXONE 0.4 MG/ML 1 ML (NARCAN) VIAL IV PRN (14:45)
[2018-01-16] MEDS ORDERED: CATHETER FLUSH 10 ML SYR IV PRN (14:45)
[2018-01-16] MEDS ORDERED: MISOPROSTOL 200 MCG (CYTOTEC) TABLET ONE (16:39)
--- NOTE | 2018-01-16 17:22 | OB Labor & Delivery Record ---
Vag Delivery Note Vag Delivery Note Date of Delivery: 01/16/18 Preoperative Diagnosis: Jayden Montes is a 27 /Para 3 / 2,Gestational Age 39 1/7 wks with elective induction of labor. Postoperative Diagnosis: Same Surgeon: MARY CHAVEZ Anesthesia: Epidural Delivery Type: Spontaneous Vaginal Delivery Findings: Viable male , apgars 8 at 1 minute, 9 at 5 minutes, weight 7 lb 14 oz/ 3570 grams Lacerations: second degree perineal Intact placenta with 3 vessel cord. No nuchal cord or shoulder dystocia, body cord x1 Cytotec 800 mcg placed for hemorrhage prophylaxis Estimated Blood Loss: 250 ml Complications: None Condition: Stable Description of Procedure: The patient is a who presented for elective induction of labor at 39 1/ 7 wks gestation. She was admitted and informed consent was obtained. Her labor course was remarkable for thin meconium noted on AROM, severe variable decelerations at times. She progressed to complete dilatation, was allowed to labor down, and then began to push. She was then set up for delivery. The 's head was delivered atraumatically in the ENDY position. The shoulders and remainder of the 's body were then delivered without difficulty. Upon delivery, the cried spontaneously and was placed on the maternal abdomen. The cord was allowed to pulsate for >60 seconds, then doubly clamped and cut by FOB. Nursery staff in attendance. An intact placenta with 3-vessel cord delivered via Luis Fernando and there was found to be minimal bleeding.~ Vigorous fundal massage was performed and the fundus was found to be firm. IV oxytocin was given along with 800 mcg cytotec per rectum. Examination of the vagina and perineum revealed a second degree laceration repaired in the usual fashion with 3-0 vicryl suture. Following the repair, sponge, instrument and needle counts were correct. Mom and baby were both in stable condition in the labor suite. Vitals - Labs Vital Signs - I&O Vital Signs Date Time Temp Pulse Resp B/P (MAP) Pulse Ox O2 Delivery O2 Flow Rate FiO2 01/16/18 15:00 90 20 114/57 (76) 100 Non Rebreather 10.00 01/16/18 14:55 117 20 126/66 (86) 100 Non Rebreather 10.00 01/16/18 14:50 99 20 124/67 (86) 100 Non Rebreather 10.00 01/16/18 14:45 123 20 118/72 (87) 100 Non Rebreather 10.00 01/16/18 14:35 110 20 122/62 (82) 01/16/18 14:30 89 20 128/75 (92) 01/16/18 14:25 112 20 129/64 (85) 01/16/18 14:20 98.4 102 20 127/71 (89) 01/16/18 14:05 93 20 133/84 (100) 01/16/18 13:50 91 20 128/82 (97) 01/16/18 13:35 88 20 127/77 (94) 01/16/18 13:20 85 20 128/78 (95) 01/16/18 13:05 86 20 122/73 (89) 01/16/18 12:50 100 20 113/71 (85) 01/16/18 12:35 77 20 110/55 (73) 01/16/18 12:20 98.4 82 20 104/63 (77) 01/16/18 12:05 80 20 105/78 (87) 01/16/18 11:50 98 20 107/58 (74) 01/16/18 11:35 113 20 116/72 (87) 01/16/18 11:20 108 20 139/59 (85) 01/16/18 11:05 87 20 117/78 (91) 01/16/18 10:50 85 20 119/78 (92) 01/16/18 10:35 83 20 119/71 (87) 01/16/18 10:20 83 20 118/74 (89) 01/16/18 09:50 83 20 112/72 (85) 01/16/18 09:35 82 20 110/74 (86) 01/16/18 09:20 77 20 111/72 (85) 01/16/18 09:00 96 20 109/66 (80) 01/16/18 08:45 75 20 121/71 (88) 01/16/18 08:30 90 20 115/79 (91) 01/16/18 08:15 82 20 111/73 (86) 01/16/18 08:00 82 20 108/70 (83) 01/16/18 07:45 93 20 106/70 (82) 01/16/18 07:30 97.5 75 20 117/67 (84) 01/16/18 06:00 98.7 110 18 118/69 (85) Labs Laboratory Tests 01/16/18 06:00: Urine Color YELLOW, Urine Clarity VERY CLOUDYH, Urine pH 7, Urine Specific Mcpherson 1.010L, Urine Protein NEGATIVE, Urine Glucose (UA) NEGATIVE, Urine Ketones NEGATIVE, Urine Nitrite NEGATIVE, Urine Bilirubin NEGATIVE, Urine Urobilinogen NORMAL, Urine Leukocyte Esterase 3+H, Urine RBC (Auto) NEGATIVE, Urine RBC 0-2, Urine WBC 10-25H, Urine Squamous Epithelial Cells 10-25H, Urine Crystals NONE, Urine Bacteria MODERATEH, Urine Casts NONE, Urine Mucus NEGATIVE , Urine Culture Indicated YES 01/16/18 06:15: White Blood Count 9.9, Red Blood Count 4.34L, Hemoglobin 10.8L, Hematocrit 34L, Mean Corpuscular Volume 77L, Mean Corpuscular Hemoglobin 25, Mean Corpuscular Hemoglobin Concent 32, Red Cell Distribution Width 17.3H, Platelet Count 176, Mean Platelet Volume 13.2H, Neutrophils (%) (Auto) 67, Lymphocytes (%) (Auto) 23 , Monocytes (%) (Auto) 9, Eosinophils (%) (Auto) 1, Basophils (%) (Auto) 0, Neutrophils # (Auto) 6.6, Lymphocytes # (Auto) 2.2, Monocytes # (Auto) 0.9, Eosinophils # (Auto) 0.1, Basophils # (Auto) 0.0 MARY CHAVEZ DO Jan 16, 2018 17:21
--- NOTE | 2018-01-16 17:22 | OB Labor & Delivery Record ---
L&D History Date of Service Date of Service: Jan 16, 2018 History Expected Date of Delivery: Jan 22, 2018 (dating via 7w5d US) Gestational Age in Weeks: 39 Hx : 3 Hx Para: 2 Complications Events: Meconium Stained Fluid, Routine care Operative Indications (Cesarea: N/A-Vaginal Delivery Intrapartal Events: None (periods of significant variable decelerations) L&D Stage1 Stage One Onset of Labor - Date: Jan 16, 2018 Onset of Labor - Time: 07:30 Duration - Stage I: 7 hours 17 minutes Monitors and Tracing Monitor Mode: Internal Heart Rate: 150 Station: -1 Long-Term Variability: Average (6-10) Short Term Variability: Present Presentation: Vertex Vital Signs VS - Last 72 Hours, by Label 01/16/18 01/16/18 01/16/18 01/16/18 06:00 07:30 07:45 08:00 Temp 98.7 97.5 Pulse 110 75 93 82 Resp 18 20 20 20 B/P (MAP) 118/69 (85) 117/67 (84) 106/70 (82) 108/70 (83) 01/16/18 01/16/18 01/16/18 01/16/18 08:15 08:30 08:45 09:00 Pulse 82 90 75 96 Resp 20 20 20 20 B/P (MAP) 111/73 (86) 115/79 (91) 121/71 (88) 109/66 (80) 01/16/18 01/16/18 01/16/18 01/16/18 09:20 09:35 09:50 10:20 Pulse 77 82 83 83 Resp 20 20 20 20 B/P (MAP) 111/72 (85) 110/74 (86) 112/72 (85) 118/74 (89) 01/16/18 01/16/18 01/16/18 01/16/18 10:35 10:50 11:05 11:20 Pulse 83 85 87 108 Resp 20 20 20 20 B/P (MAP) 119/71 (87) 119/78 (92) 117/78 (91) 139/59 (85) 01/16/18 01/16/18 01/16/18 01/16/18 11:35 11:50 12:05 12:20 Temp 98.4 Pulse 113 98 80 82 Resp 20 20 20 20 B/P (MAP) 116/72 (87) 107/58 (74) 105/78 (87) 104/63 (77) 01/16/18 01/16/18 01/16/18 01/16/18 12:35 12:50 13:05 13:20 Pulse 77 100 86 85 Resp 20 20 20 20 B/P (MAP) 110/55 (73) 113/71 (85) 122/73 (89) 128/78 (95) 01/16/18 01/16/18 01/16/18 01/16/18 13:35 13:50 14:05 14:20 Temp 98.4 Pulse 88 91 93 102 Resp 20 20 20 20 B/P (MAP) 127/77 (94) 128/82 (97) 133/84 (100) 127/71 (89) 01/16/18 01/16/18 01/16/18 01/16/18 14:25 14:30 14:35 14:45 Pulse 112 89 110 123 Resp 20 20 20 20 B/P (MAP) 129/64 (85) 128/75 (92) 122/62 (82) 118/72 (87) Pulse Ox 100 O2 Delivery Non Rebreather O2 Flow Rate 10.00 01/16/18 01/16/18 01/16/18 14:50 14:55 15:00 Pulse 99 117 90 Resp 20 20 20 B/P (MAP) 124/67 (86) 126/66 (86) 114/57 (76) Pulse Ox 100 100 100 O2 Delivery Non Rebreather Non Rebreather Non Rebreather O2 Flow Rate 10.00 10.00 10.00 Signs of Distress by FHT Signs of Distress periods of severe variable decelerations Rupture of Membranes Spontaneous Ruture of Membrane: No Amniotic Membrane Rupture Time: 1205 Amniotic Membrane Fluid Desc.: Meconium Stained (thin) Vaginal Bleeding Description: Normal Show Induction/Anesthesia Epidural Cath Placement - Time: 1423 L&D Stage2 Stage Two Stage II Date: Jan 16, 2018 Stage II Time: 14:47 Stage II Duration: 1 hour 26 minutes Monitors and Tracing Monitor Mode: Internal Heart Rate: 150 Monitor Decelerations: Variable Long-Term Variability: Average (6-10) Short Term Variability: Present Position: Right Occiput Anterior Presentation: Vertex Cord Descript/Complications Cord Vessel Description: 3 Vessels Delivery Type Infant Delivery Method: Spontaneous Vaginal Anterior Shoulder: Right Episiotomy/Perineal Laceration Laceraction(s)/Extensions: Yes Episiotomy Description: 2nd degree (laceration) Location Modifier: Medial Sutures Used: Vicryl Degree (describe repair) repaired in usual fashion Condition of Infant Delivery Delivery Date & Time: 01/16/18 at 1621 1 minute Comment: 8 5 minute Comment: 9 Condition of Infant Condition of : Living Exam: No Observed Abnormalities Resuscitation Resuscitation: N/A - Spontaneous Resp L&D Stage3 Stage Three Stage III Date: Jan 16, 2018 Stage III Time: 16:27 Stage III Duration: 6 minutes Pictocin Pitocin Administration mu/min: 16 Pitocin ml/hr: 16 Pitocin Administration Comment: PITOCIN STARTED PER PROTOCOL. Placenta Delivery Placenta Delivery: Spontaneous Delivery Summary Summary Total Labor Time 9 hours 21 minutes Estimated blood loss (mL): 250 Attending at delivery: Dr. Nogueira Condition of Delivery Post Hemorrhage: No Condition of Mother stable Condition of Infant (s) MARY Bell DO Jan 16, 2018 17:22
[2018-01-16] MEDS ORDERED: DIBUCAINE (NUPERCAINAL) 1% OINT 30 GM TOP PRN (17:30)
[2018-01-16] MEDS ORDERED: BENZOCAINE/MENTHOL (DERMOPLAST) 56 ML CAN TP PRN (17:30)
[2018-01-16] MEDS ORDERED: HYDROcodone/APAP 5 MG/325 MG (LORTAB) TAB PO PRN (17:30)
[2018-01-16] MEDS ORDERED: MISOPROSTOL 200 MCG (CYTOTEC) TABLET PR ONE (17:30)
[2018-01-16] MEDS ORDERED: WITCH HAZEL(TUCKS) 40 EA JAR TOP PRN (17:30)
[2018-01-16] MEDS ORDERED: DOCUSATE SODIUM 100 MG (COLACE) CAP PO PRN (17:30)
[2018-01-16] MEDS: KETOROLAC 30 MG/ML VIAL IVP SCH (18:29)
[2018-01-17 00:09] VITALS: BP 98/65
[2018-01-17] MEDS: CATHETER FLUSH 10 ML SYR IV SCH ×2 (00:09→05:54)
[2018-01-17] MEDS: KETOROLAC 30 MG/ML VIAL IVP SCH ×3 (00:09→11:09)
[2018-01-17 04:00] VITALS: BP 92/58
[2018-01-17 05:15] LABS: BASOPHILS % (AUTO) 0 % (0-10); EOSINOPHILS # (AUTO) 0.1 10^3/uL (0.0-0.3); EOSINOPHILS % (AUTO) 1 % (0-10); HEMATOCRIT 29 % (35-52); HEMOGLOBIN 8.8 G/DL (11.5-16.0); LYMPHOCYTES # (AUTO) 2.3 X 10^3 (1.0-4.0); LYMPHOCYTES % (AUTO) 22 % (12-44); MEAN CORPUSCULAR HEMOGLOBIN 24 PG (25-34); MEAN CORPUSCULAR HGB CONC 31 G/DL (32-36); MEAN CORPUSCULAR VOLUME 78 FL (80-99); MEAN PLATELET VOLUME 12.9 FL (7.4-10.4); MONOCYTES % (AUTO) 9 % (0-12); NEUTROPHILS # (AUTO) 7.2 X 10^3 (1.8-7.8); NEUTROPHILS % (AUTO) 68 % (42-75); PLATELET COUNT 163 10^3/uL (130-400); RED BLOOD COUNT 3.67 10^6/uL (4.35-5.85); RED CELL DISTRIBUTION WIDTH 17.4 % (10.0-14.5); WHITE BLOOD COUNT 10.5 10^3/uL (4.3-11.0)
--- NOTE | 2018-01-17 07:35 | Anesthesia-Regional Post-Op ---
Regional Patient Condition Mental Status: Alert, Oriented x3 Circulation: Same as Pre-Op Headache: Absent Sensation: Full Recovery Motor Block: Absent Post Op Complications Complications None Follow Up Care/Instructions Patient Instructions None needed. Anesthesia/Patient Condition Patient is doing well, no complaints, stable vital signs, no apparent adverse anesthesia problems. No complications reported per nursing. D/C home per [facility] Criteria: Yes DONTA BOWMAN CRNA Jan 17, 2018 07:35
[2018-01-17 08:20] VITALS: BP 96/64
[2018-01-17] MEDS ORDERED: IBUPROFEN 600 MG (MOTRIN) TAB PO ONE (12:14)
--- NOTE | 2018-01-17 12:34 | Progress Note (SOAP) ---
Subjective Subjective/Events-last exam Afebrile, no acute events. Bleeding minimal, pain controlled. Denies shortness of breath or chest pain. going well. Review of Systems Date Seen by Provider: Jan 17, 2018 Time Seen by Provider: 10:45 Objective Exam Last Set of Vital Signs Vital Signs Date Time Temp Pulse Resp B/P (MAP) Pulse Ox O2 Delivery O2 Flow Rate FiO2 01/17/18 08:20 97.3 76 20 96/64 (75) Room Air 01/17/18 04:00 98 01/16/18 16:25 10.00 Capillary Refill : I&O Intake and Output 01/17/18 00:00 Intake Total 3400 ml Balance 3400 ml Intake IV Total 3400 ml Daily Weight Change No General: Alert, No Acute Distress Lungs: Clear to Auscultation, Normal Air Movement Heart: Regular Rate, No Murmurs Abdomen: Other (fundus firm at umbilicus, nontender) Extremities: No Edema Neuro: Normal Speech Psych/Mental Status: Mood NL Results/Procedures Lab Laboratory Tests 01/17/18 04:41: White Blood Count 10.5, Red Blood Count 3.67L, Hemoglobin 8.8L, Hematocrit 29L, Mean Corpuscular Volume 78L, Mean Corpuscular Hemoglobin 24L, Mean Corpuscular Hemoglobin Concent 31L, Red Cell Distribution Width 17.4H, Platelet Count 163, Mean Platelet Volume 12.9H, Neutrophils (%) (Auto) 68, Lymphocytes (%) (Auto) 22 , Monocytes (%) (Auto) 9, Eosinophils (%) (Auto) 1, Basophils (%) (Auto) 0, Neutrophils # (Auto) 7.2, Lymphocytes # (Auto) 2.3, Monocytes # (Auto) 1.0, Eosinophils # (Auto) 0.1, Basophils # (Auto) 0.0 Microbiology 01/16/18 Urine Culture - Final, Complete See Comments Assessment/Plan Assessment/Plan Assessment & Plan s/p spontaneous vaginal delivery- routine care asymptomatic anemia- iron daily Clinical Quality Measures DVT/VTE Risk/Contraindication: Risk Factor Score Per Nursin RFS Level Per Nursing on Admit: 1=Low/No VTE PPX SARAHY SAMPSON MD Jan 17, 2018 12:34 pm
[2018-01-17 12:50] VITALS: BP 100/65
[2018-01-17] MEDS: IBUPROFEN 600 MG (MOTRIN) TAB PO PRN ×2 (13:03→18:12)
[2018-01-17 18:07] VITALS: BP 100/61
[2018-01-17 21:00] VITALS: BP 117/79
[2018-01-18] MEDS: IBUPROFEN 600 MG (MOTRIN) TAB PO PRN ×2 (00:27→08:00)
[2018-01-18 00:49] VITALS: BP 99/63
[2018-01-18 06:25] VITALS: BP 119/79
[2018-01-18] MEDS ORDERED: FERR325T18 PO (06:45)
[2018-01-18] MEDS ORDERED: IBUP-844 PO (06:45)
[2018-01-18] MEDS ORDERED: FERROUS SULF 325 MG (IRON) TAB PO SCH (07:00)
--- NOTE | 2018-01-18 09:33 | Discharge Summary ---
Diagnosis/Chief Complaint Date of Admission Jan 16, 2018 at 5:43 am Date of Discharge Jan 18, 2018 Admission Diagnosis Admission Diagnosis Term intrauterine 39 weeks gestation Elective induction of labor Discharge Diagnosis s/p spontaneous vaginal delivery with second degree perineal laceration repair anemia- asymptomatic- started iron daily Discharge Summary-Simple/Stand Procedures Spontaneous vaginal delivery Second degree perineal laceration repair Discharge Physical Examination Allergies: Coded Allergies: No Known Drug Allergies (Unverified , 08/12/14) Vitals & I&Os Vital Sign - Last 12Hours Date Time Temp Pulse Resp B/P (MAP) Pulse Ox O2 Delivery O2 Flow Rate FiO2 01/18/18 06:25 97.5 71 20 119/79 (92) 98 Room Air 01/16/18 16:25 10.00 Hospital Course See final discharge diagnosis. Labs Laboratory Tests Test 01/17/18 04:41 Range/Units White Blood Count 10.5 4.3-11.0 10^3/uL Red Blood Count 3.67 L 4.35-5.85 10^6/uL Hemoglobin 8.8 L 11.5-16.0 G/DL Hematocrit 29 L 35-52 % Mean Corpuscular Volume 78 L 80-99 FL Mean Corpuscular Hemoglobin 24 L 25-34 PG Mean Corpuscular Hemoglobin Concent 31 L 32-36 G/DL Red Cell Distribution Width 17.4 H 10.0-14.5 % Platelet Count 163 130-400 10^3/uL Mean Platelet Volume 12.9 H 7.4-10.4 FL Neutrophils (%) (Auto) 68 42-75 % Lymphocytes (%) (Auto) 22 12-44 % Monocytes (%) (Auto) 9 0-12 % Eosinophils (%) (Auto) 1 0-10 % Basophils (%) (Auto) 0 0-10 % Neutrophils # (Auto) 7.2 1.8-7.8 X 10^3 Lymphocytes # (Auto) 2.3 1.0-4.0 X 10^3 Monocytes # (Auto) 1.0 0.0-1.0 X 10^3 Eosinophils # (Auto) 0.1 0.0-0.3 10^3/uL Basophils # (Auto) 0.0 0.0-0.1 10^3/uL Discharge Instructions to patient/family Please see electronic discharge instructions given to patient. Discharge Medications Reviewed and agree with Discharge Medication list on patient's Discharge Instruction sheet Clinical Quality Measures DVT/VTE Risk/Contraindication: Risk Factor Score Per Nursin RFS Level Per Nursing on Admit: 1=Low/No VTE PPX SARAHY SAMPSON MD Jan 18, 2018 9:33 am
== END 2018-01-18 13:50 | disposition home or self-care (01) | DRG 807 ==
LOC: LDRP 05:43
PROVIDERS: ADMIT Family Medicine; ATTEND Family Medicine
PROC: 10E0XZZ Delivery of Products of Conception, External Approach (ICD-10-PCS; principal; 2018-01-16)
PROC: 0KQM0ZZ Repair Perineum Muscle, Open Approach (ICD-10-PCS; 2018-01-16)
DX: O99.413 Diseases of the circulatory system complicating pregnancy, third trimester (principal); I34.1 Nonrheumatic mitral (valve) prolapse; O70.1 Second degree perineal laceration during delivery; O77.0 Labor and delivery complicated by meconium in amniotic fluid; O76 Abnormality in fetal heart rate and rhythm complicating labor and delivery; O90.81 Anemia of the puerperium; O99.213 Obesity complicating pregnancy, third trimester; E66.9 Obesity, unspecified; O99.283 Endocrine, nutritional and metabolic diseases complicating pregnancy, third trimester; E28.2 Polycystic ovarian syndrome; O99.89 Other specified diseases and conditions complicating pregnancy, childbirth and the puerperium; R12 Heartburn; O99.353 Diseases of the nervous system complicating pregnancy, third trimester; G56.03 Carpal tunnel syndrome, bilateral upper limbs; Z3A.39 39 weeks gestation of pregnancy; Z37.0 Single live birth
CPT/HCPCS: 36415; 81000; 85025; 86850; 86900; 86901; 87088